=== PATIENT | male | born 1945 | race African-American/Black ===

== ENCOUNTER → 2017-07-25 09:33 | Outpatient (CLI) | payer MEDICARE, SELFPAY ==
[2017-07-25 13:22] LABS: Absolute Lymphocyte Count 1.24 X10^3/ul (0.83-4.51); Absolute Neutrophil Count 2.4 X10^3/uL (2.0-7.7); Basophil# 0.02 X10^3/uL; Basophil% 0.4 % (0-1); Eosinophil# 0.06 X10^3/uL; Eosinophils% 1.3 % (0-5); Hematocrit 46.9 % (40-54); Hemoglobin 15.1 g/dl (13.0-16.5); Lymphocyte # 1.24 X10^3/ul (4.0); Lymphocyte % 27.7 % (19-41); Mean Corp Hgb Conc 32.2 g/gl (32-36); Mean Corpuscular Hgb 31.5 pg (27.0-32.0); Mean Corpuscular Volume 97.9 fL (80-94); Mean Platelet Vol. 10.5 fl (6.2-12.0); Monocyte# 0.78 X10^3/uL; Monocyte% 17.4 % (0-10); Neutrophil # 2.37 X10^3/uL (2.7-7.7); Platelet Count 174 K/mm3 (150-450); RBC Distribution Width CV 14.3 % (11.6-14.6); RBC Distribution Width SD 50.8 fl (35.1-43.9); Red Blood Count 4.79 M/mm3 (4.6-6.2); White Blood Count 4.5 K/mm3 (4.4-11.0)
[2017-07-25 13:35] LABS: POSITIVE COUNT NO; POSITIVE DIFFERENTIAL NO; POSITIVE MORPHOLOGY NO
[2017-07-25 13:40] LABS: Vitamin D,25 Hydroxy 24.4 ng/mL (29.95-100.01)
[2017-07-25 13:47] LABS: AST(SGOT) 19 U/L (15-37); Alanine Aminotransfer ALT/SGPT 36 U/L (16-61); Albumin, Serum 3.8 g/dL (3.2-5.0); Alkaline Phosphatase 70 U/L (45-117); Anion Gap 6 (5-15); BUN 12 mg/dL (7-18); BUN/Creat Ratio 9.4 RATIO (10-20); Calcium,Total 8.9 mg/dL (8.5-10.1); Chloride 106 mmol/L (98-107); Creatinine, Serum 1.27 mg/dL (0.70-1.30); EST Glomerular Filtration Rate 59 mL/min (>60); Est Glom Filt Rate - Afr Amer 71 mL/min (>60); Globulin 3.8 g/dL (2.2-4.2); Glucose 75 mg/dL (74-106); Potassium 4.2 mmol/L (3.5-5.1); Protein, Total 7.6 g/dL (6.4-8.2); Sodium Level 141 mmol/L (136-145); Thyroid Stim Hormone (TSH) 0.79 uIU/mL (0.358-3.74)
== END ==
PROVIDERS: Family Provider Family Medicine Geriatric Medicine; PCP Family Medicine Geriatric Medicine; Visit Provider Family Medicine Geriatric Medicine
DX: E11.9 Type 2 diabetes mellitus without complications (principal); E55.9 Vitamin D deficiency, unspecified; I10 Essential (primary) hypertension
CPT/HCPCS: 36415; 80053; 82306; 84443; 85025

== ENCOUNTER → 2017-10-24 14:32 | Outpatient (CLI) | payer OTHER, SELFPAY ==
[2017-10-24 15:30] LABS: PSA,Total- Diagnostic 4.47 ng/mL (0.0-4.0)
== END ==
PROVIDERS: Family Provider Family Medicine Geriatric Medicine; PCP Family Medicine Geriatric Medicine; Visit Provider Urology
DX: C61 Malignant neoplasm of prostate (principal)
CPT/HCPCS: 36415; 84153

== ENCOUNTER → 2018-01-28 13:22 | Outpatient (CLI) | payer OTHER, SELFPAY ==
[2018-01-28 15:01] LABS: Absolute Lymphocyte Count 1.43 X10^3/ul (0.83-4.51); Absolute Neutrophil Count 1.8 X10^3/uL (2.0-7.7); Basophil# 0.02 X10^3/uL; Basophil% 0.5 % (0-1); Eosinophil# 0.07 X10^3/uL; Eosinophils% 1.7 % (0-5); Hematocrit 46.7 % (40-54); Lymphocyte # 1.43 X10^3/ul (4.0); Lymphocyte % 35.4 % (19-41); Mean Corp Hgb Conc 32.1 g/gl (32-36); Mean Corpuscular Hgb 31.6 pg (27.0-32.0); Mean Corpuscular Volume 98.5 fL (80-94); Mean Platelet Vol. 10.3 fl (6.2-12.0); Monocyte# 0.67 X10^3/uL; Monocyte% 16.6 % (0-10); Neutrophil # 1.84 X10^3/uL (2.7-7.7); Neutrophil % 45.6 % (47-70); Platelet Count 159 K/mm3 (150-450); RBC Distribution Width CV 14.6 % (11.6-14.6); RBC Distribution Width SD 52.2 fl (35.1-43.9); Red Blood Count 4.74 M/mm3 (4.6-6.2)
[2018-01-28 15:06] LABS: POSITIVE COUNT NO; POSITIVE DIFFERENTIAL NO; POSITIVE MORPHOLOGY NO
[2018-01-28 15:18] LABS: Vitamin D,25 Hydroxy 17.1 ng/mL (29.95-100.01)
[2018-01-28 15:22] LABS: AST(SGOT) 21 U/L (15-37); Alanine Aminotransfer ALT/SGPT 32 U/L (16-61); Albumin, Serum 3.7 g/dL (3.2-5.0); Alkaline Phosphatase 81 U/L (45-117); Anion Gap 8 (5-15); BUN 12 mg/dL (7-18); BUN/Creat Ratio 8.8 RATIO (10-20); Calcium,Total 8.8 mg/dL (8.5-10.1); Chloride 105 mmol/L (98-107); Creatinine, Serum 1.37 mg/dL (0.70-1.30); EST Glomerular Filtration Rate 54 mL/min (>60); Est Glom Filt Rate - Afr Amer 65 mL/min (>60); Globulin 3.8 g/dL (2.2-4.2); Glucose 87 mg/dL (74-106); Potassium 4.4 mmol/L (3.5-5.1); Protein, Total 7.5 g/dL (6.4-8.2); Sodium Level 141 mmol/L (136-145); Thyroid Stim Hormone (TSH) 1.02 uIU/mL (0.358-3.74)
== END ==
PROVIDERS: Family Provider Family Medicine Geriatric Medicine; PCP Family Medicine Geriatric Medicine; Visit Provider Family Medicine Geriatric Medicine
DX: E11.9 Type 2 diabetes mellitus without complications (principal); E23.6 Other disorders of pituitary gland; E55.9 Vitamin D deficiency, unspecified; I10 Essential (primary) hypertension
CPT/HCPCS: 36415; 80053; 82306; 84403; 84443; 85025

== ENCOUNTER → 2018-04-09 10:43 | Outpatient (CLI) | payer OTHER, SELFPAY ==
[2018-04-09 12:48] LABS: Absolute Lymphocyte Count 1.09 X10^3/ul (0.83-4.51); Absolute Neutrophil Count 1.6 X10^3/uL (2.0-7.7); Basophil# 0.01 X10^3/uL; Basophil% 0.3 % (0-1); Eosinophil# 0.06 X10^3/uL; Eosinophils% 1.8 % (0-5); Hemoglobin 15.3 g/dl (13.0-16.5); Lymphocyte # 1.09 X10^3/ul (4.0); Lymphocyte % 33.3 % (19-41); Mean Corp Hgb Conc 31.9 g/gl (32-36); Mean Corpuscular Hgb 31.2 pg (27.0-32.0); Mean Platelet Vol. 10.3 fl (6.2-12.0); Monocyte# 0.47 X10^3/uL; Monocyte% 14.4 % (0-10); Neutrophil # 1.64 X10^3/uL (2.7-7.7); Neutrophil % 50.2 % (47-70); Platelet Count 164 K/mm3 (150-450); RBC Distribution Width CV 13.7 % (11.6-14.6); RBC Distribution Width SD 48.4 fl (35.1-43.9); White Blood Count 3.3 K/mm3 (4.4-11.0)
[2018-04-09 12:54] LABS: POSITIVE COUNT NO; POSITIVE DIFFERENTIAL NO; POSITIVE MORPHOLOGY NO
[2018-04-09 13:02] LABS: Erythrocyte Sedimentation Rate 8 mm/hr (0-20)
[2018-04-09 13:28] LABS: Anion Gap 7 (5-15); BUN 15 mg/dL (7-18); BUN/Creat Ratio 10.9 RATIO (10-20); CPK Total, Creatine Kinase 281 U/L (39-308); CRP < 2.90 mg/L (0.0-3.0); Calcium,Total 9.1 mg/dL (8.5-10.1); Chloride 108 mmol/L (98-107); Creatinine, Serum 1.38 mg/dL (0.70-1.30); EST Glomerular Filtration Rate 53 mL/min (>60); Est Glom Filt Rate - Afr Amer 65 mL/min (>60); Glucose 89 mg/dL (74-106); Potassium 4.5 mmol/L (3.5-5.1); Sodium Level 141 mmol/L (136-145)
[2018-04-10 09:24] LABS: Myoglobin, Serum 195 ng/mL (28-72)
--- OUTSIDE RECORDS SUMMARY | 2018-05-22 02:24 | XMS RPT_ITS ---
:1945 Author Organization OHIP Support Name Relationship Address Phone R Unavailable Unavailable Unavailable PACHECO, ABAD Unavailable [address] + [address] [place] [address] LATASHA PACHECOUS Unavailable Unavailable + [place] [address] R Unavailable Unavailable Unavailable PACHECO, ABAD Unavailable [address] + [address] [place] [address] PACHECOLATASHAUS Unavailable Unavailable + [place] [address] R Unavailable Unavailable Unavailable PACHECO, ABAD Unavailable [address] + [address] [place] [address] PACHECOLATASHAUS Unavailable Unavailable + [place] [address] R Unavailable Unavailable Unavailable PACHECO, ABAD Unavailable [address] + [address] [place] [address] BETOLATASHAUS Unavailable Unavailable + [place] [address] R Unavailable Unavailable Unavailable PACHECO, ABAD Unavailable [address] + [address] [place] [address] PACHECOLATASHAUS Unavailable Unavailable + [place] [address] R Unavailable Unavailable Unavailable PACHECO, ABAD Unavailable [address] + [address] [place] [address] PACHECOLATASHAUS Unavailable . + [place] [address] R Unavailable Unavailable Unavailable PACHECO, ABAD Unavailable [address] + [address] [place] [address] BETOLATASHAUS Unavailable Unavailable + [place] [address] R Unavailable Unavailable Unavailable PACHECO, ABAD Unavailable [address] + [address] [place] [address] PACHECO, MARYSE Unavailable Unavailable + [place] [address] R Unavailable Unavailable Unavailable PACHECO, ABAD Unavailable [address] + [address] [place] [address] MARYSE PACHECO Unavailable Unavailable [phone] [place] [address] R Unavailable Unavailable Unavailable PACHECO, ABAD Unavailable [address] + [address] [place] [address] MARYSE PACHECO Unavailable . [phone] [place] [address] R Unavailable Unavailable Unavailable PACHECO, ABAD Unavailable [address] + [address] [place] [address] MARYSE PACHECO Unavailable . [phone] [place] [address] R Unavailable Unavailable Unavailable PACHECO, ABAD Unavailable [address] + [address] [place] [address] MARYSE PACHECO Unavailable . [phone] [place] [address] Care Team Providers Name Role Phone Yony, Aashish Chi Attending Unavailable Yony, Aashish Chi Referring Unavailable Yony, Aashish Chi Primary Care Unavailable Marion, [place] Attending Unavailable Marion, Munir Referring Unavailable Yony, Aashish Chi Primary Care Unavailable Yony, Aashish Chi Primary Care Unavailable Tamela Navarro Attending Unavailable Yony, Aashish Chi Attending Unavailable Yony, Aashish Chi Primary Care Unavailable VinnyRaymundoEsteban Attending Unavailable Vinny, Esteban Referring Unavailable Yony, Aashish Chi Primary Care Unavailable Yony, Aashish Chi Attending Unavailable Yony, Aashish Chi Primary Care Unavailable Yony, Aashish Chi Attending Unavailable Yony, Aashish Chi Primary Care Unavailable Marion, Munir Attending Unavailable Yony, Aashish Chi Referring Unavailable Vinny, Esteban Attending Unavailable Vinny, Esteban Referring Unavailable Yony, Aashish Chi Primary Care Unavailable [place], [place] Attending Unavailable Marion, Munir Referring Unavailable Yoyn, Aashish Chi Primary Care Unavailable [place], [place] Attending Unavailable Marion, [place] Referring Unavailable Yony, Aashish Chi Primary Care Unavailable [place], [place] Consulting Unavailable Mildred Diaz Attending Unavailable Yony, Aashish Chi Referring Unavailable Yony, Aashish Chi Primary Care Unavailable PROBLEMS PROBLEMS DATE TYPE CONDITION / CODE ATTENDING STATUS SOURCE 04/24/2018 Unknown M25.529 - Pain in Aashish Bhakta Chi Active [place] unspecified elbow / Community M25.529(ICD-10) Hospital Repository 04/22/2018 Unknown I45.10 - [place], [place] Active [place] Unspecified right [facility] / I45.10(ICD-10) Repository 04/17/2018 Unknown R07.9 - Chest pain, [place], [place] Active [place] unspecified / Community R07.9(ICD-10) Hospital Repository 09/05/2017 Unknown 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[place], 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 Community without Hospital complications / Repository E11.9(ICD-10) 09/05/2017 Unknown R50.9 - Fever, Ahmed, Rami Active [place] unspecified / Community R50.9(ICD-10) Hospital Repository 04/24/2017 Unknown M54.5 - Low back DiazMildred Active [place] pain / Community M54.5(ICD-10) Hospital Repository PROCEDURES PROCEDURES No Procedure Records FoundRESULTS RESULTS CBC W/DIFF, AUTOMATED Collected: 04/24/2018 Status: F Source: [place] 1:51 PM [facility] REPOSITORY TYPE CODE TESTS RESULT OUT OF RANGE REFERENCE UNITS LAB L100.1000 4.4-11.0 K/mm3 Normal WBC 5.6 LAB L100.1200 4.6-6.2 M/mm3 Normal RBC 5.01 LAB L100.1300 13.0-16.5 g/dl Normal HGB 15.7 LAB L100.1400 40-54 % Normal HCT 49.7 LAB L100.1500 80-94 fL High MCV 99.2 LAB L100.1600 27.0-32.0 pg Normal MCH 31.3 LAB L100.1700 32-36 g/gl Low MCHC 31.6 LAB L100.1810 11.6-14.6 % Normal RDW CV 14.3 LAB L100.1820 35.1-43.9 fl High RDW SD 51.8 LAB L100.1900 150-450 K/mm3 Normal PLT 157 LAB L100.2000 6.2-12.0 fl Normal MPV 10.5 LAB L100.2100 47-70 % Normal NEUT% 68.0 LAB L100.2200 19-41 % Low LY% 18.1 LAB L100.2300 0-10 % High MONO% 12.5 LAB L100.2400 0-5 % Normal EO% 1.2 LAB L100.2500 0-1 % Normal BASO% 0.2 LAB L100.2550 0.0-0.9 % Normal IM GRAN % 0.000 Result Comment: IG% - Immature Granulocytes (promyelocytes, myelocytes and metamyelocytes) > 1% indicates that a LEFT SHIFT is Present. LAB L100.2620 2.0-7.7 X10 3/uL Normal Absolute Neut 3.8 LAB L100.2720 0.83-4.51 X10 3/ul Normal Absolute Lymph 1.02 Performed By: #### L100.0100 #### [facility] [address] [place], [address] BASIC METABOLIC Collected: 04/24/2018 Status: F Source: [place] PROFILE ([facility]) 1:51 PM [facility] [place] TYPE CODE TESTS RESULT OUT OF RANGE REFERENCE UNITS LAB L501.0100 74-106 mg/dL Normal GLU 81 Result Comment: Please note revised GLUCOSE reference range effective 2017. LAB L501.1000 7-18 mg/dL Normal BUN 14 LAB L501.1100 0.70-1.30 mg/dL High CREAT,SERUM 1.31 Result Comment: The validity of the calculated GFR AND GFRAA in patients over 70 years has not been determined. Clinical correlation is essential. LAB L501.1110 >60 mL/min Low EST GFR 57 Result Comment: Non- GFR Calc LAB L501.1115 >60 mL/min Normal EST GFR - AA 69 Result Comment: GFR Calc LAB L501.1300 10-20 RATIO Normal BUN/CRE 10.7 LAB L501.2200 8.5-10.1 mg/dL CA Normal 8.9 LAB L501.5300 136-145 mmol/L NA Normal 139 LAB L501.5600 3.5-5.1 mmol/L K Normal 4.3 LAB L501.5900 98-107 mmol/L CL Normal 107 LAB L501.6100 21.0-32.0 mmol/L Normal CO2 26.0 LAB L501.6200 5-15 Normal GAP 6 Performed By: #### L500.2500 #### [facility] [address] [place], [address] ELBOW MIN 3 VIEWS Observed: 04/24/2018 Status: F Source: [place] 11:54 AM [facility] [place] Imaging Services [address] [place] [address] Elbow min 3 Views MR#: [id number] Acct: [id number] Name: BALJINDER PACHECO Rep #: [id number] : 1945 M 72 From: Tobias Paredes MD PCP: [place] FLETCHER,Aashish Crsepo Status: REG CLI Study: Elbow min 3 Views Date of Exam: 04/24/18 Exam# [id number] Ordering Dr: Aashish Bhakta MD STUDY: X-RAY - RIGHT ELBOW REASON FOR EXAM: Male, 72 years old. Pain. Fall. TECHNIQUE: 3 view(s) of the elbow. COMPARISON: None. FINDINGS: Normal visualized humerus, radius and ulna. Normal radiocapitellar and ulnotrochlear articulations. Prominent calcified spur at the insertion of the triceps tendon. There is dorsal soft tissue swelling. RAD/Elbow min 3 Views IMPRESSION: No acute fracture or dislocation. Electronically Signed: Tobias Paredes MD at 12:25 EST , Service support , CC: Aashish Bhakta MD Ditching Machine Operator: Signed ECHOCARDIOGRAM COMPLETE Observed: 04/22/2018 Status: F Source: [place] 12:17 PM [facility] [place] [facility] Cardiovascular Services [address] [place] [address] Echo Complete 04/22/18 0827 MR#: [id number] Acct: [id number] Name: BALJINDER PACHECO Rep #: [id number] : 1945 72 From: Munir Schultz MD Attending Dr: [place] FLETCHER,Munir Status: REG CLI Ordering Dr: Munir Schultz MD Date: 04/22/18 Location: [facility] Sex: M AA Admitted: Reason For Study: Arrhythmia Procedure This was a 2D Doppler, Color Flow transthoracic echocardiogram. Exam performed in department. Left Ventricle Normal LV size. Apical false tendon noted. Left ventricular systolic function is normal. The estimated ejection fraction is 60 %. Stage 1 diastolic dysfunction. No regional wall motion abnormalities noted. Right Ventricle Normal RV size. Normal systolic function. Atria Normal left atrium. Normal right atrium. Mitral Valve Normal mitral valve. Tricuspid Valve Normal tricuspid valve. Aortic Valve Normal aortic valve. Trisinus/trileaflet aortic valve. Pulmonic Valve Normal pulmonic valve. Great Vessels Normal aortic root. The pulmonary artery is normal size. Normal inferior vena cava. Pericardium/Pleural No pericardial effusion. MMode/2D Measurements AND Calculations LVIDd: 3.9 cm IVSd: 0.97 cm Ao root diam: 3.5 cm LVIDs: 2.6 cm LVPWd: 0.96 cm RVDd: 3.4 cm FS: 34.1 % LAV(MOD-bp): 40.1 ml EDV(MOD-sp4): 95.8 ml EDV(MOD-sp2): 80.0 ml LAV(MOD-bp) Indexed: 19.5 ml/m2 ESV(MOD-sp4): 33.9 ml EF(MOD-sp2): 58.7 % LAV(MOD-sp2): 40.1 ml EF(MOD-sp4): 64.6 % LAV(MOD-sp4): 34.6 ml SV(MOD-sp4): 61.9 ml SV(MOD-sp2): 47.0 ml LA A4 area: 15.7 cm2 LA dimension(2D): 3.2 cm RA A4 area: 14.6 cm2 Doppler Measurements AND Calculations MV E max deepak: 84.2 cm/sec Lat Peak E' Deepak: 9.1 cm/sec Med Peak E' Deepak: 6.3 cm/sec MV A max edepak: 91.4 cm/sec E/E' lat: 9.2 E/E' med: 13.3 MV E/A: 0.92 Ao V2 max: 137.7 cm/sec LV V1 max: 90.5 cm/sec PA V2 max: 103.7 cm/sec Ao max P.6 mmHg LV V1 max P.3 mmHg TR max deepak: 245.3 cm/sec TR max P.1 mmHg Interpretation Summary Normal LV size. Left ventricular systolic function is normal. The estimated ejection fraction is 60 %. Stage 1 diastolic dysfunction. Ordering Physician: Munir Schultz Referring Physician: Aashish Bhakta Chi Performed By: Iraida Madera RDCS 04/22/186 Date Munir Schultz MD CC: Munir Schultz MD; Aashish Bhakta MD Date Dictated: 04/22/18826 Date Transcribed: 04/22/181215 Ditching Machine Operator: Signed STRESS REPORT Observed: 04/22/2018 Status: F Source: [place] 8:32 AM [facility] Cardiovascular Services [address] [place] [address] MR#: [id number] Acct: [id number] Name: BAJLINDER PACHECO Rep #: [id number] : 1945 72 From: Munir Schultz MD Primary Care: Aashish Bhakta MD, Chi Status: REG CLI Ordering Dr: Sex: M AA Stress Test Report Exercise myocardial perfusion stress test. 72-year-old male with a history of chest pain. Stress protocol: Resting EKG demonstrates normal sinus rhythm with a rate of 66 bpm normal intervals are noted resting blood pressure is 138/72 mmHg. The patient exercised according to regular Vince protocol for total duration of 6 minutes completing stage II of the Vince protocol the maximum heart rate attained was 153 bpm which was 104% of maximum predicted heart rate the maximum workload was 7 metabolic equivalents. The patient maintained sinus rhythm throughout the recording. At rest there were no ST or T wave changes noted suggest ischemia peak exercise upsloping ST changes only were noted with normally the criteria for ischemia. No clinical angina was noted. The resting blood pressure 138/72 with a peak blood pressure 182/70 mmHg. Right bundle branch block pattern was noted. Myocardial perfusion protocol. 10.0 mCi of technetium 99m sestamibi was injected at rest. The patient exercised according to regular Vince protocol for 6 minutes at peak exercise 31.0 mCi of technetium 99m sestamibi was injected stress images were obtained stress and rest images were reconstructed and compared in the short axis vertical long and horizontal long axis. Gated images were also obtained per Perfusion SPECT analysis: Review of the stress images demonstrate normal uptake of tracer noted in the anterior wall and lateral wall. There is reduced perfusion noted in the inferior wall on the stress and resting images diaphragmatic attenuation or previous inferior infarct cannot be completely excluded. Gated SPECT analysis: The gated ejection fraction is noted to be 69%. Conclusion: Exercise myocardial perfusion stress test with no evidence of ischemia at a moderate workload. Previous inferior infarct or GI attenuation is noted. No clinical angina noted. 04/22/18831 <Electronically signed by Munir Schultz MD> Date Munir Schultz MD CC: Munir Schultz MD; Aashish Bhakta MD Date Dictated: 04/22/18827 Date Transcribed: 04/22/18827 Ditching Machine Operator: [place] Signed PSA,TOTAL- DIAGNOSTIC Collected: 04/17/2018 Status: F Source: [place] 10:22 AM [facility] [place] TYPE CODE TESTS RESULT OUT OF REFERENCE UNITS RANGE LAB L501.9940 0.0-4.0 ng/mL PSA, High DIAGNOSTIC 4.09 Result Comment: This test was performed using the TPSA assay method for the [employer] chemistry system. Values obtained with different assay methods cannot be used interchangably. When changing PSA assays in the course of monitoring a patient, additional sequential testing should be carried out to confirm baseline values. Performed By: #### L501.9940 #### [facility] [address] [place], [address] CARDIOLOGY VISIT Observed: 04/17/2018 Status: F Source: [place] REPORT 10:00 AM [facility] [address] [place] [address] OFFICE VISIT Date of Service: 04/17/18 MR#: [id number] Acct: [id number] Name: BALJINDER PACHECO Rep #: [id number] : 1945 Provider: Munir Schultz MD Age/Sex: 72/M Location: [facility] Status: Signed HPI HPI Chief Complaint: Initial visit Details: BALJINDER PACHECO is a 72 M who presents to the office today for an initial visit. He is a gentleman with no previous cardiac history who saw you as his primary physician. He had complained of occasional chest discomfort which was sharp and did not last long time. He had been complaining of bilateral arm pain which had been bothering him for over a year. He has been on atorvastatin for hyperlipidemia which has since been discontinued. An EKG was performed with demonstrated sinus rhythm with a right bundle branch block and a rate of 66 bpm no acute changes were noted. He has had no dizziness or diaphoresis no near syncope or syncope. His physical exam today here demonstrates clear lung weinstein regular rate and rhythm and no pedal edema. Intake Vital Signs04/17/18 Height 5 ft 10 in 04/17/18 Weight: 193 lb 04/17/18 Body Mass Index (BMI) 27.6 04/17/18 Blood Pressure 120/70 04/17/18 Respiratory Rate 16 04/17/18 Pulse Rate 66 Intake Visit Reasons: PCP ref'd for abn EKG Allergies No Known Allergies Allergy (Verified 04/17/18 08:16) Medications Aspirin [Aspirin, Baby] 81 mg PO DAILY@0800 12/10/16 [History Confirmed 04/17/18] Tamsulosin HCl [Flomax] 0.4 mg PO DAILY 12/10/16 [History Confirmed 04/17/18] allergy shot IM QWEEK 04/17/18 [History Confirmed 04/17/18] baclofen 10 mg tablet 10 mg PO QHS tab 04/17/18 [History Confirmed 04/17/18] cholecalciferol (vitamin D3) 50,000 unit capsule 50,000 unit PO QWEEK 04/17/18 [History Confirmed 04/17/18] diclofenac sodium 50 mg tablet,delayed release 50 mg PO BID 04/17/18 [History Confirmed 04/17/18] [facility] Medical History Right bundle branch block (Acute) Hyperlipidemia (Chronic) BPH (benign prostatic hyperplasia) (Chronic) Psoriasis (Chronic) Surgical History History of appendectomy (Resolved) Hx of cholecystectomy (Resolved) History of appendectomy (Inactive) History of gallbladder disease (Inactive) Family History Brother Cancer Social History Smoking Status: Former smoker quit date: 05/14/73 pack-years: 10 ROS Const Const: Positive for weakness and other (BUE pain for the past 9 months); negative for fatigue, difficulty sleeping, frequent falls, excessive sweating or headache(s) Eyes Eyes: Negative for loss of peripheral vision, transient loss of vision, blurry vision, tunnel vision or double vision ENT ENT: Negative for headache(s), dizziness, Nosebleed/epistaxis or balance problems Cardio Chest Pain: No Palpitations: No Edema: None Muscle aches with walking: None Resp Respiratory: Negative for SOB with activity, SOB at rest, SOB orthopnea\SOB lying down, paroxysmal nocturnal dyspnea or Cough GI GI: Negative nausea, heartburn, black,tarry stools or vomiting : Negative for hematuria Musc Musc: Negative for balance problems, muscle aches/ myalgia, muscle weakness or joint pain Skin Skin: Negative non-healing lesions, unusual bruising or rash Neuro Neuro: Positive for weakness and orthostatic symptoms (occasional); negative for frequent falls, headache(s), blurry vision, double vision, dizziness, lightheadedness, near syncope, syncope or lack of coordination Guy Hematologic/Lymphatic: Negative for easy bruising or easy bleeding Endo Endo: Negative for fatigue, excessive sweating or increased thirst/drinking Psych Psych: Negative for anxiety or depression Allergy Allergy/Immunology: Negative for hives, Negative for rash Cardiology Exam Const Appearance: cooperative, healthy appearing, well developed, well groomed and no acute distress Nutritional Appearance: well nourished and average body habitus Orientation: alert, awake and oriented x3 Head Head: normal to inspection, normocephalic and atraumatic Ears: hearing grossly normal bilaterally and external ears normal Nose: external nose normal, nasal mucous membranes and turbinates normal, nares normal, septum normal, no nasal discharge Face and Sinus: face symmetric Mouth: oral mucosae normal, tongue normal, oropharynx normal and moist mucous membranes Teeth and gingiva: dentition normal Throat: posterior oropharynx normal, tonsils normal and uvula midline Eyes General: appearance normal, both eyes and all related structures Eyelids: eyelids normal Conjunctivae: conjunctivae normal Pupils: PERRL, normal by confrontation and accommodation normal EOM: EOM intact bilaterally Neck Neck: normal visual inspection, trachea midline and no JVD JVD: +5 Carotids: normal carotid upstroke and bounding pulses Chest Chest inspection: normal inspection of the chest, symmetric chest movement and normal respiratory effort Auscultation: Bilateral: Clear to Auscultation Cardio Palpation: normal PMI Rate: regular rate Rhythm: regular rhythm Heart sounds: S1 normal, S2 normal and normal, physiologic split S2; negative rub, gallop or murmur GI GI: normal to inspection, soft, no hepatosplenomegaly and bowel sounds present Neuro General: alert, awake, oriented x3, no focal sensory deficit, gait normal and moves all extremities Skin Skin: no rashes or lesions noted Extremities Pulses: Normal: Right Femoral Pulse, Left Femoral Pulse, Right Dorsalis Pedis Pulse, Left Dorsalis Pedis Pulse, Right Posterior Tibial Pulse, Left Posterior Tibial Pulse, Right Radial Pulse, Left Radial Pulse Lower Extremity Edema: None: Bilateral Musculoskel Musculoskeletal: No joint tenderness Psych Psychological: normal affect Assessment AND Plan 1. Right bundle branch block I45.10 Plan He does have a right bundle branch block the duration and etiology is not clear to me at this time. My recommendation is for us to obtain an echocardiogram to assess his left ventricular function. Orders Orders: 2. Chest pain R07.9 Plan He has had occasional chest pain as well as arm pain. Due to his age it may be prudent to further evaluate this with a stress test to make sure there is no evidence of ischemia noted. Depending on the findings further recommendations will then be made. 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) Coding Level of Care Code Off vis,new,level 4 Diagnoses Right bundle branch block I45.10 Chest pain R07.9 Coding Level of Care Code Off vis,new,level 4 Diagnoses Right bundle branch block I45.10 Chest pain R07.9 04/17/18 1000 <Electronically signed by Munir Schultz MD> Date Munir Schultz MD Cosigner Signature: Date (if applicable) CC: Aashish Bhakta MD CBC W/DIFF, AUTOMATED Collected: 04/09/2018 Status: F Source: [place] 10:44 AM [facility] [place] TYPE CODE TESTS RESULT OUT OF RANGE REFERENCE UNITS LAB L100.1000 4.4-11.0 K/mm3 Low WBC 3.3 LAB L100.1200 4.6-6.2 M/mm3 Normal RBC 4.90 LAB L100.1300 13.0-16.5 g/dl Normal HGB 15.3 LAB L100.1400 40-54 % Normal HCT 48.0 LAB L100.1500 80-94 fL High MCV 98.0 LAB L100.1600 27.0-32.0 pg Normal MCH 31.2 LAB L100.1700 32-36 g/gl Low MCHC 31.9 LAB L100.1810 11.6-14.6 % Normal RDW CV 13.7 LAB L100.1820 35.1-43.9 fl High RDW SD 48.4 LAB L100.1900 150-450 K/mm3 Normal PLT 164 LAB L100.2000 6.2-12.0 fl Normal MPV 10.3 LAB L100.2100 47-70 % Normal NEUT% 50.2 LAB L100.2200 19-41 % Normal LY% 33.3 LAB L100.2300 0-10 % High MONO% 14.4 LAB L100.2400 0-5 % Normal EO% 1.8 LAB L100.2500 0-1 % Normal BASO% 0.3 LAB L100.2550 0.0-0.9 % Normal IM GRAN % 0.000 Result Comment: IG% - Immature Granulocytes (promyelocytes, myelocytes and metamyelocytes) > 1% indicates that a LEFT SHIFT is Present. LAB L100.2620 2.0-7.7 X10 3/uL Low Absolute Neut 1.6 LAB L100.2720 0.83-4.51 X10 3/ul Normal Absolute Lymph 1.09 Performed By: #### L100.0100, L101.9900 #### [facility] [address] [place], [address] ERYTHROCYTE SED RATE Collected: 04/09/2018 Status: F Source: [place] 10:44 AM [facility] [place] TYPE CODE TESTS RESULT OUT OF RANGE REFERENCE UNITS LAB L102.0000 0-20 mm/hr Normal SED RATE 8 Performed By: #### L100.0100, L101.9900 #### [facility] [address] [place], [address] BASIC METABOLIC Collected: 04/09/2018 Status: F Source: [place] PROFILE (BMP) 10:44 AM [facility] Order Comment: 'TROP' Serial specimen #1, #2, #3, or #4: 1 TYPE CODE TESTS RESULT OUT OF RANGE REFERENCE UNITS LAB L501.0100 74-106 mg/dL Normal GLU 89 Result Comment: Please note revised GLUCOSE reference range effective 2017. LAB L501.1000 7-18 mg/dL Normal BUN 15 LAB L501.1100 0.70-1.30 mg/dL High CREAT,SERUM 1.38 Result Comment: The validity of the calculated GFR AND GFRAA in patients over 70 years has not been determined. Clinical correlation is essential. LAB L501.1110 >60 mL/min Low EST GFR 53 Result Comment: Non- GFR Calc LAB L501.1115 >60 mL/min Normal EST GFR - AA 65 Result Comment: GFR Calc LAB L501.1300 10-20 RATIO Normal BUN/CRE 10.9 LAB L501.2200 8.5-10.1 mg/dL CA Normal 9.1 LAB L501.5300 136-145 mmol/L NA Normal 141 LAB L501.5600 3.5-5.1 mmol/L K Normal 4.5 LAB L501.5900 98-107 mmol/L High CL 108 LAB L501.6100 21.0-32.0 mmol/L Normal CO2 26.0 LAB L501.6200 5-15 Normal GAP 7 Performed By: #### L500.2500, L501.3620, L501.4010, L501.6710 #### [facility] [address] [place], [address] CPK TOTAL, CREATINE Collected: 04/09/2018 Status: F Source: [place] 10:44 AM [facility] Order Comment: 'TROP' Serial specimen #1, #2, #3, or #4: 1 TYPE CODE TESTS RESULT OUT OF RANGE REFERENCE UNITS LAB L501.3620 39-308 U/L Normal CPK TOTAL 281 Performed By: #### L500.2500, L501.3620, L501.4010, L501.6710 #### [facility] [address] [place], [address] TROPONIN-I Collected: 04/09/2018 Status: F Source: [place] 10:44 AM [facility] Order Comment: 'TROP' Serial specimen #1, #2, #3, or #4: 1 TYPE CODE TESTS RESULT OUT OF RANGE REFERENCE UNITS LAB L501.4010 <0.045 ng/mL Normal < 0.015 TROPONIN-I Result Comment: TROPONIN-I EXPECTED VALUES <0.045 Negative 0.045 - 0.590 Consistent with Cardiac Damage > OR = 0.600 Critical Value Not every elevated troponin is indicative of AR. These values should be used with clinical judgement in examining the patient's clinical picture for diagnosis. To establish a diagnosis of AR versus myocardial injury, there must be a demonstrated rise and/or fall in the troponin values, in addition to ischemic symptoms, EKG changes, new regional wall motion abnormality, and/or angiographical evidence. PLEASE NOTE: REFERENCE RANGES EDITED 17 Performed By: #### L500.2500, L501.3620, L501.4010, L501.6710 #### [facility] [address] [place], [address] CRP Collected: 04/09/2018 Status: F Source: [place] 10:44 AM [facility] Order Comment: 'TROP' Serial specimen #1, #2, #3, or #4: 1 TYPE CODE TESTS RESULT OUT OF RANGE REFERENCE UNITS LAB L501.6710 0.0-3.0 mg/L Normal < 2.90 C-REACTIVE PROT Result Comment: C-Reactive Protein (CRP) provides useful information for the diagnosis, therapy and monitoring of inflammatory processes and associated diseases. For the evaluation of Relative Risk for Cardiovascular Disease, a High Sensitivity CRP (HSCRP) should be ordered. Performed By: #### L500.2500, L501.3620, L501.4010, L501.6710 #### [facility] [address] [place], [place], [address] MYOGLOBIN, SERUM Collected: 04/09/2018 Status: F Source: [place] 10:44 AM [facility] TYPE CODE TESTS RESULT OUT OF RANGE REFERENCE UNITS LAB L3600.5100 28-72 ng/mL High 195 Myoglobin, Ser Result Comment: Performed at: [address] [id number] [employer] Consultant: Angel Pang PhD, Phone: [phone] Performed By: #### L3600.5100 #### [facility] (refer to report for specific site) refer to report for address and phone number CBC W/DIFF, AUTOMATED Collected: 01/28/2018 Status: F Source: [place] 1:24 PM [facility] TYPE CODE TESTS RESULT OUT OF RANGE REFERENCE UNITS LAB L100.1000 4.4-11.0 K/mm3 Low WBC 4.0 LAB L100.1200 4.6-6.2 M/mm3 Normal RBC 4.74 LAB L100.1300 13.0-16.5 g/dl Normal HGB 15.0 LAB L100.1400 40-54 % Normal HCT 46.7 LAB L100.1500 80-94 fL High MCV 98.5 LAB L100.1600 27.0-32.0 pg Normal MCH 31.6 LAB L100.1700 32-36 g/gl Normal MCHC 32.1 LAB L100.1810 11.6-14.6 % Normal RDW CV 14.6 LAB L100.1820 35.1-43.9 fl High RDW SD 52.2 LAB L100.1900 150-450 K/mm3 Normal PLT 159 LAB L100.2000 6.2-12.0 fl Normal MPV 10.3 LAB L100.2100 47-70 % Low NEUT% 45.6 LAB L100.2200 19-41 % Normal LY% 35.4 LAB L100.2300 0-10 % High MONO% 16.6 LAB L100.2400 0-5 % Normal EO% 1.7 LAB L100.2500 0-1 % Normal BASO% 0.5 LAB L100.2550 0.0-0.9 % Normal IM GRAN % 0.200 Result Comment: IG% - Immature Granulocytes (promyelocytes, myelocytes and metamyelocytes) > 1% indicates that a LEFT SHIFT is Present. LAB L100.2620 2.0-7.7 X10 3/uL Low Absolute Neut 1.8 LAB L100.2720 0.83-4.51 X10 3/ul Normal Absolute Lymph 1.43 Performed By: #### L100.0100 #### [facility] [address] [facility] [place], [place], [address] VITAMIN D,25 HYDROXY Collected: 01/28/2018 Status: F Source: [place] 1:24 PM [facility] TYPE CODE TESTS RESULT OUT OF REFERENCE UNITS RANGE LAB L506.1000 29.95-100.01 ng/mL Low Vitamin D 17.1 25-OH Result Comment: Vitamin D 25(OH) Status Range Deficiency <20 ng/mL (50nmol/L) Insuffciency 20 - 30 ng/mL (50 - 75 nmol/L) Sufficiency 30 - 100 ng/mL (75 - 250 nmol/L) Toxicity >100 ng/mL (>250 nmol/L) Performed By: #### L506.1000, L509.3000 #### [facility] [address] [place], [place], [address] TESTOSTERONE, SERUM TOTAL Collected: 01/28/2018 Status: F Source: [place] 1:24 PM [facility] TYPE CODE TESTS RESULT OUT OF REFERENCE UNITS RANGE LAB L509.3000 ng/dL Testosterone Normal 400.30 Result Comment: NORMAL REFERENCE RANGES MALE AGE <50 123.06 - 813.86 ng/dL MALE AGE >50 89.98 - 780.10 ng/dL FEMALE PREMENOPAUSE AGE 21 - 60 9.01 - 47.94 ng/dL FEMALE POSTMENOPAUSE AGE 45 - 89 <7.00 - 45.62 ng/dL REFERENCE RANGE AND METHODOLOGY CHANGED 05/02/2017 Performed By: #### L506.1000, L509.3000 #### [facility] [place], [address] COMPREHENSIVE METABOLIC Collected: 01/28/2018 Status: F [facility] PM [facility] TYPE CODE TESTS RESULT OUT OF RANGE REFERENCE UNITS LAB L501.0100 74-106 mg/dL Normal GLU 87 Result Comment: Please note revised GLUCOSE reference range effective 2017. LAB L501.1000 7-18 mg/dL Normal BUN 12 LAB L501.1100 0.70-1.30 mg/dL High CREAT,SERUM 1.37 Result Comment: The validity of the calculated GFR AND GFRAA in patients over 70 years has not been determined. Clinical correlation is essential. LAB L501.1110 >60 mL/min Low EST GFR 54 Result Comment: Non- GFR Calc LAB L501.1115 >60 mL/min Normal EST GFR - AA 65 Result Comment: GFR Calc LAB L501.1300 10-20 RATIO Low BUN/CRE 8.8 LAB L501.1500 6.4-8.2 g/dL Normal T PROT 7.5 LAB L501.1800 3.2-5.0 g/dL Normal ALB 3.7 LAB L501.1950 2.2-4.2 g/dL Normal GLOB 3.8 LAB L501.2000 0.9-2.4 RATIO Normal A/G 1.0 LAB L501.2200 8.5-10.1 mg/dL Normal CA 8.8 LAB L501.4100 15-37 U/L Normal AST 21 LAB L501.4305 45-117 U/L Normal ALK P 81 LAB L501.4405 16-61 U/L Normal ALT 32 LAB L501.4600 0.20-1.00 mg/dL Normal T BILI 0.70 LAB L501.5300 136-145 mmol/L Normal NA 141 LAB L501.5600 3.5-5.1 mmol/L Normal K 4.4 LAB L501.5900 98-107 mmol/L Normal CL 105 LAB L501.6100 21.0-32.0 mmol/L Normal CO2 28.0 LAB L501.6200 5-15 Normal GAP 8 Performed By: #### L500.4050, L501.9520 #### [facility] [address] [place], [address] THYROID STIM HORMONE Collected: 01/28/2018 Status: F Source: [place] ([place]) 1:24 PM [facility] TYPE CODE TESTS RESULT OUT OF RANGE REFERENCE UNITS LAB L501.9520 0.358-3.74 uIU/mL Normal TSH 1.02 Performed By: #### L500.4050, L501.9520 #### [facility] [address] [facility] [place], [address] PSA,TOTAL- DIAGNOSTIC Collected: 10/24/2017 Status: F Source: [place] 2:35 PM [facility] TYPE CODE TESTS RESULT OUT OF REFERENCE UNITS RANGE LAB L501.9940 0.0-4.0 ng/mL PSA, High DIAGNOSTIC 4.47 Result Comment: This test was performed using the TPSA assay method for the [employer] chemistry system. Values obtained with different assay methods cannot be used interchangably. When changing PSA assays in the course of monitoring a patient, additional sequential testing should be carried out to confirm baseline values. Performed By: #### L501.9940 #### [facility] [address] [facility] [place], [address] CBC W/DIFF, AUTOMATED Collected: 07/25/2017 Status: F Source: [place] 9:34 AM [facility] TYPE CODE TESTS RESULT OUT OF RANGE REFERENCE UNITS LAB L100.1000 4.4-11.0 K/mm3 Normal WBC 4.5 LAB L100.1200 4.6-6.2 M/mm3 Normal RBC 4.79 LAB L100.1300 13.0-16.5 g/dl Normal HGB 15.1 LAB L100.1400 40-54 % Normal HCT 46.9 LAB L100.1500 80-94 fL High MCV 97.9 LAB L100.1600 27.0-32.0 pg Normal MCH 31.5 LAB L100.1700 32-36 g/gl Normal MCHC 32.2 LAB L100.1810 11.6-14.6 % Normal RDW CV 14.3 LAB L100.1820 35.1-43.9 fl High RDW SD 50.8 LAB L100.1900 150-450 K/mm3 Normal PLT 174 LAB L100.2000 6.2-12.0 fl Normal MPV 10.5 LAB L100.2100 47-70 % Normal NEUT% 53.0 LAB L100.2200 19-41 % Normal LY% 27.7 LAB L100.2300 0-10 % High MONO% 17.4 LAB L100.2400 0-5 % Normal EO% 1.3 LAB L100.2500 0-1 % Normal BASO% 0.4 LAB L100.2550 0.0-0.9 % Normal IM GRAN % 0.200 Result Comment: IG% - Immature Granulocytes (promyelocytes, myelocytes and metamyelocytes) > 1% indicates that a LEFT SHIFT is Present. LAB L100.2620 2.0-7.7 X10 3/uL Normal Absolute Neut 2.4 LAB L100.2720 0.83-4.51 X10 3/ul Normal Absolute Lymph 1.24 Performed By: #### L100.0100 #### [facility] [address], [place], [address] VITAMIN D,25 HYDROXY Collected: 07/25/2017 Status: F Source: [place] 9:34 AM [facility] TYPE CODE TESTS RESULT OUT OF REFERENCE UNITS RANGE LAB L506.1000 29.95-100.01 ng/mL Low Vitamin D 24.4 25-OH Result Comment: Vitamin D 25(OH) Status Range Deficiency <20 ng/mL (50nmol/L) Insuffciency 20 - 30 ng/mL (50 - 75 nmol/L) Sufficiency 30 - 100 ng/mL (75 - 250 nmol/L) Toxicity >100 ng/mL (>250 nmol/L) Performed By: #### L506.1000 #### [facility] [address] [place], [place], [address] COMPREHENSIVE METABOLIC Collected: 07/25/2017 Status: F Source: [place] 9:34 AM [facility] TYPE CODE TESTS RESULT OUT OF RANGE REFERENCE UNITS LAB L501.0100 74-106 mg/dL Normal GLU 75 Result Comment: Please note revised GLUCOSE reference range effective 2017. LAB L501.1000 7-18 mg/dL Normal BUN 12 LAB L501.1100 0.70-1.30 mg/dL Normal CREAT,SERUM 1.27 Result Comment: The validity of the calculated GFR AND GFRAA in patients over 70 years has not been determined. Clinical correlation is essential. LAB L501.1110 >60 mL/min Low EST GFR 59 Result Comment: Non- GFR Calc LAB L501.1115 >60 mL/min Normal EST GFR - AA 71 Result Comment: GFR Calc LAB L501.1300 10-20 RATIO Low BUN/CRE 9.4 LAB L501.1500 6.4-8.2 g/dL Normal T PROT 7.6 LAB L501.1800 3.2-5.0 g/dL Normal ALB 3.8 LAB L501.1950 2.2-4.2 g/dL Normal GLOB 3.8 LAB L501.2000 0.9-2.4 RATIO Normal A/G 1.0 LAB L501.2200 8.5-10.1 mg/dL Normal CA 8.9 LAB L501.4100 15-37 U/L Normal AST 19 LAB L501.4305 45-117 U/L Normal ALK P 70 LAB L501.4405 16-61 U/L Normal ALT 36 Result Comment: Please note revised ALT reference range effective 2017. LAB L501.4600 0.20-1.00 mg/dL Normal T BILI 0.90 LAB L501.5300 136-145 mmol/L Normal NA 141 LAB L501.5600 3.5-5.1 mmol/L Normal K 4.2 LAB L501.5900 98-107 mmol/L Normal CL 106 LAB L501.6100 21.0-32.0 mmol/L Normal CO2 29.0 LAB L501.6200 5-15 Normal GAP 6 Performed By: #### L500.4050, L501.9520 #### [facility] [address] [place], [place], [address] THYROID STIM HORMONE Collected: 07/25/2017 Status: F Source: [place] ([place]) 9:34 AM [facility] TYPE CODE TESTS RESULT OUT OF RANGE REFERENCE UNITS LAB L501.9520 0.358-3.74 uIU/mL Normal TSH 0.79 Performed By: #### L500.4050, L501.9520 #### [facility] [address] [place], [address] ORTHOPEDIC VISIT Observed: 05/27/2017 Status: F Source: [place] 11:11 PM [facility] [place] [facility] [address] [place] [address] OFFICE VISIT Date of Service: 04/24/17 MR#: [id number] Acct: [id number] Name: BALJINDER PACHECO Rep #: [id number] : 1945 Provider: Mildred Diaz MD Age/Sex: 71/M Location: [facility] [place] Status: Signed Intake Intake Visit Reasons: Lumbar pain Is patient in pain?: Yes Allergies No Known Allergies Allergy (Verified 05/06/17 23:29) Medications Atorvastatin Calcium [Lipitor] 40 mg PO QHS 02/05/15 [History Confirmed 05/07/17] Aspirin [Aspirin, Baby] 81 mg PO DAILY@0800 12/10/16 [History Confirmed 05/07/17] Tamsulosin HCl [Flomax] 0.4 mg PO DAILY 12/10/16 [History Confirmed 05/07/17] Smz/Tmp Ds [Bactrim Ds] 1 tab PO BID 7 Days #14 tab 05/07/17 [Rx] PFSH Surgical History History of appendectomy (Inactive) History of gallbladder disease (Inactive) Family History Brother Cancer Social History Smoking Status: Former smoker HPI Low back pain: Chief Complaint: low back pain Details: BALJINDER PACHECO is a 71 year old ambidexterous M here today for low back pain 70% and right lateral calf pain 30%. He states that he has had low back pain since December with no known injury. Since then, he has had 80-90% improvement of his pain. He is doing well currently without pain. Patient sees Dr Montemayor and had epidural injections into his L4-L5 and L5-S1 in 12/2016. He had physical therapy, that helped. He denies bowel or bladder issues, gait instability or difficulty with hand dexterity. He denies constitutional symptoms. He has BPH. He is retired. ROS Const Reports system reviewed and no additional complaints, except as docu Eyes Reports system reviewed and no additional complaints, except as docu ENT Reports system reviewed and no additional complaints, except as docu Card Reports system reviewed and no additional complaints, except as docu Resp Reports system reviewed and no additional complaints, except as docu GI Reports system reviewed and no additional complaints, except as docu Reports system reviewed and no additional complaints, except as docu Musc Reports back pain Skin/Breast Reports system reviewed and no additional complaints, except as docu Neuro Yes system reviewed and no additional complaints, except as docu Psych Reports system reviewed and no additional complaints, except as docu Endo Reports system reviewed and no additional complaints, except as docu Ortho Exam Spine Neuro: Yes Vigil's Left General: alert, oriented x3 Gait: normal gait, other (able to heel and toe walk) Sensory Exam: no sensory deficits noted DTR's: Rt Triceps: 2+, Lt Triceps: 2+, Rt Biceps: 2+, Lt Biceps: 2+, Rt Brachioradialis: 2+, Lt Brachioradialis: 2+, Rt Patellar: 2+, Lt Patellar: 2+, Rt Ankle: 2+, Lt Ankle: 2+ Plantar Reflexes: Downgoing: bilateral Coordination: Romberg test normal, tandem gait normal SPINE TESTING CERVICAL THORACIC LUMBAR SLR: Negative Iliac Compression: Negative Musculoskeletal General: Yes normal gait and normal posture Cervical Spine: cervical ROM normal Thoracic/Lumbar Spine: thoracic and lumbar spine normal to inspection, thoraco-lumbar ROM normal, straight leg raise negative bilaterally, other (2+ bilateral dp and pt pulses) Strength 0=absent - 5=normal Deltoid R (C5): 5, Deltoid L (C5): 5, R Bicep (C5-6): 5, L Bicep (C5-6): 5, R Wrist Extensor (C6): 5, L Wrist Extensor (C6): 5, R Tricep (C7): 5, L Tricep (C7): 5, R Finger Flexors (C8): 5, L Finger Flexors (C8): 5, R First Dorsal Interossei (C8): 5, L First Dorsal Interossei (C8): 5, R Hip Flexor (L1-3): 5, L Hip Flexor (L1-3): 5, R Quadriceps (L2-4): 5, L Quadriceps (L2-4): 5, R Anterior Tibialis (L4-5): 5, L Anterior Tibialis (L4- 5): 5, R Hamstrings (L5-S1): 5, L Hamstrings (L5-S1): 5, GS (S1): 5, L GS (S1): 5, R Peroneals (S1): 5, L Peroneals (S1): 5 Assessment AND Plan 1. Low back pain M54.5 Plan Imaging: XR lumbar spine - diffuse spondylosis MRI lumbar spine 12/21/2016 - diffuse spondylosis with L3-4 moderate stenosis. L4-5 spinal stenosis and L5-S1 bilateral lateral recess stenosis I/R/P; 1. back pain 2. right leg pain Mr. Pahceco presents with back and right leg pain that is significantly resolved. The natural history and course of the symptomatology of lumbar spinal stenosis was discussed in detail with the patient. I answered all questions regarding the mode of onset, pathophysiology, symptoms, imaging findings, treatment options (both nonoperative and operative) regarding his diagnosis. Given his symptoms have resolved, recommend continued activities as tolerated. If his symptoms return, he will contact us for reevaluation. Plan of care discussed. All questions answered. The patient verbalized understanding of the disease process and agreed to the treatment plan formulated for this visit. Orders Orders: 05/27/17 2311 <Electronically signed by Mildred Diaz MD> Date Mildred Diaz MD Cosigner Signature: Date (if applicable) CC: EMERGENCY DEPARTMENT Observed: 05/08/2017 Status: F Source: [place] SUMMARY 7:28 AM [facility] Medical Records Department [address] [place] [address] Emergency Department Summary 05/06/17 2347 MR#: [id number] Acct: [id number] Name: BALJINDER PACHECO Rep #: [id number] : 1945 71 From: Tamela Navarro PCP: Aashish Bhakta MD, Chi Status: DEP ER - ER Visit Summary Date of Service: 05/06/17 Chief Complaint: [] Fever History of Present Illness: The patient is a 71 M [] complaining of fever beginning approximately 5 hours ago. Patient reports body aches and slight back discomfort. Denies vomiting. History is limited by mild dementia. Several family members are at the bedside. Patient presents with URI symptoms and the peak a flu season. Physical Examination: [] Temperature is 102.6. Cardiovascular exam is regular rate and rhythm, lungs are clear to auscultation, abdomen soft nontender. Test Results: [] CBC, BMP within normal limits. Urinalysis positive for bacteria with 3+ bacteria, greater than 500 leukocytes. Chest x-ray negative. Rapid flu was negative. Emergency Department Course and Treatment: [] Upon arrival patient reported diffuse myalgias and fever. Denied chest pain or shortness of breath. Denied nausea and vomiting. Denied abdominal pain. Denied dysuria. Findings are consistent with the urinary cause for the fever in light of the patient's history of BPH. Patient was given ceftriaxone intravenously as well as intravenous Toradol and Phenergan. On serial exam he had improvement of symptoms and vital signs. Patient and patient's family was amenable to discharge and close follow-up. Patient was provided a prescription for antibiotics as an outpatient. I felt because of the large family support the patient was a good candidate to be treated as an outpatient. Family was especially sensitive to the fact that today is Sebastian. Treatment Plan: [] Intravenous antibiotics and discharge with antibiotic prescription for UTI. Disposition: [] Discharge, stable. Impression: [] UTI Fever This note was generated with OLX dictation software. It may contain incorrect words, spelling, and punctuation that were not noted in review of the chart prior to signing ED Disposition - Plan for ED Patient: Chief Complaint: Fever Referrals: Aashish Bhakta Chi, MD [Primary Care Provider] - What to do if you have Problems For any increased pain, shortness of breath, bleeding, nausea or vomiting, chest pain, or any unexpected problems, contact your Primary Care Provider. Call [facility] ([phone]) or report to the closest Emergency Room. Call 911 if necessary. 05/08/17727 <Electronically signed by Tamela Navarro DO> Date Tamela Navarro DO Cosigner Signature (If Indicated): Date CC: Aashish Bhakta MD DISCHARGE INSTRUCTION Observed: 2017 Status: F Source: [place] 3:23 AM [facility] Medical Records Department [address] [place] [address] Discharge Instruction 05/07/17321 MR#: [id number] Acct: [id number] Name: BALJINDER PACHECO Rep #: [id number] : 1945 72 From: Tamela Navarro DO PCP: Aashish Bhakta MD, Chi Status: REG ER ED Disposition - Plan for ED Patient: Disposition: Home or Assisted Living Chief Complaint: Fever Instructions: ED UTI Cystitis Male Prescriptions: Smz/Tmp Ds [Bactrim Ds] 1 tab PO BID 7 Days #14 tab Referrals: Aashish Bhakta Chi, MD [Primary Care Provider] - What to do if you have Problems For any increased pain, shortness of breath, bleeding, nausea or vomiting, chest pain, or any unexpected problems, contact your Primary Care Provider. Call [facility] ([phone]) or report to the closest Emergency Room. Call 911 if necessary. 05/07/17322 <Electronically signed by Tamela Navarro DO> Date Tamela Navarro DO Cosigner Signature (If Indicated): Date CC: Aashish Bhakta MD URINALYSIS, COMPLETE Collected: 2017 Status: F Source: [place] 2:02 AM [facility] Order Comment: Order Date: 05/07/17 How was Urine Obtained? CLEAN CATCH TYPE CODE TESTS RESULT OUT OF RANGE REFERENCE UNITS LAB L400.3000 Yellow COLOR Normal Yellow LAB L400.3050 Clear Normal CLARITY Cloudy LAB L400.3200 Normal mg/dl Normal GLUCOSE, UR Normal LAB L400.3300 Negative mg/dL Normal BILIRUBIN URINE Negative LAB L400.3400 Negative mg/dl High 5 KETONE UR LAB L400.3465 1.002-1.030 Normal SP.GR. DIPSTX 1.010 LAB L400.3550 5.0 - 8.0 pH UR Normal 6.5 LAB L400.3600 Negative mg/dl High PROT 30 DIPSTX LAB L400.3700 Normal mg/dl High 8 UROBILI LAB L400.3750 Negative Normal NITRITE UR Negative LAB L400.3780 Negative /ul High OCCULT BLOOD-UR 250 LAB L400.3800 Negative /ul High LEUK ESTERASE 500 LAB L400.4050 0-5 /hpf WBC Normal 25-50 SEEN LAB L400.4100 0-5 /hpf > Normal RBC-UA 100 SEEN LAB L400.4150 0-5 /hpf SQUAM 0 Normal EPI SEEN LAB L400.4300 None Seen /hpf 3+ Normal BACTERIA LAB L400.4350 <or=2+ /hpf 0 Normal MUCUS, URINE SEEN Performed By: #### L400.0001 #### [facility] [address] [place], [address] Observed: 2017 Status: F Source: [place] INFLUENZA A+B (RAPID 12:30 AM [facility] REPOSITORY Order Date: 05/07/17 FLU A/B Rapid Negative test results should be confirmed by culture. Order Rapid Viral Culture for Influenzae A+B ([id number]) if clinically indicated. Influenza Ag, Direct Presumptive NEGATIVE for Influenza A/B Antigen (See Note) Performed By: #### M101.0101 #### [facility] [address] [place], [address] CHEST 1 VIEW Observed: 05/06/2017 Status: F Source: [place] (PORTABLE) 11:46 PM [facility] REPOSITORY [facility] Imaging Services [address] [place] [address] Chest 1 View (Portable) MR#: [id number] Acct: [id number] Name: BALJINDER PACHECO Rep #: [id number] : 1945 M 71 From: Phil Benitez MD PCP: Aashish Bhakta MD, Chi Status: REG ER Study: Chest 1 View (Portable) Date of Exam: 05/06/17 Exam# [id number] Ordering Dr: Tamela Navarro DO STUDY: X-RAY CHEST REASON FOR EXAM: Male, 72 years old. Fever. TECHNIQUE: Single AP portable view of the chest. COMPARISON: 02/03/2015. FINDINGS: There are mild hypoventilatory changes. No focal infiltrate is seen. There is no demonstrated pleural abnormality. Normal size heart. Normal mediastinum and cheryle. Normal visualized pulmonary arteries. There is atherosclerotic tortuosity of the aortic arch and descending thoracic aorta. The thoracic spine is not well-visualized. Normal visualized ribs, clavicles, and shoulders. There is no demonstrated abnormality of the visualized soft tissue structures of the upper abdomen. RAD/Chest 1 View (Portable) IMPRESSION: No active pulmonary disease. Electronically Signed: Phil Benitez MD at 0:33 EST Tel , Service support , CC: Tamela Navarro DO; Aashish Bhakta MD Ditching Machine Operator: Signed CBC W/DIFF, AUTOMATED Collected: 05/06/2017 Status: F Source: [place] 12:15 AM [facility] TYPE CODE TESTS RESULT OUT OF RANGE REFERENCE UNITS LAB L100.1000 4.4-11.0 K/mm3 Normal WBC 7.0 LAB L100.1200 4.6-6.2 M/mm3 Normal RBC 4.60 LAB L100.1300 13.0-16.5 g/dl Normal HGB 14.7 LAB L100.1400 40-54 % Normal HCT 44.7 LAB L100.1500 80-94 fL High MCV 97.2 LAB L100.1600 27.0-32.0 pg Normal MCH 32.0 LAB L100.1700 32-36 g/gl Normal MCHC 32.9 LAB L100.1810 11.6-14.6 % Normal RDW CV 13.3 LAB L100.1820 35.1-43.9 fl High RDW SD 46.5 LAB L100.1900 150-450 K/mm3 Low PLT 146 LAB L100.2000 6.2-12.0 fl Normal MPV 10.2 LAB L100.2100 47-70 % High NEUT% 93.8 LAB L100.2200 19-41 % Low LY% 4.0 LAB L100.2300 0-10 % Normal MONO% 1.7 LAB L100.2400 0-5 % Normal EO% 0.1 LAB L100.2500 0-1 % Normal BASO% 0.1 LAB L100.2550 0.0-0.9 % Normal IM GRAN % 0.300 Result Comment: IG% - Immature Granulocytes (promyelocytes, myelocytes and metamyelocytes) > 1% indicates that a LEFT SHIFT is Present. LAB L100.2620 2.0-7.7 X10 3/uL Normal Absolute Neut 6.6 LAB L100.2720 0.83-4.51 X10 3/ul Low Absolute Lymph 0.28 LAB L100.4500 Normal SMEAR COMMENT SCANNED Result Comment: LYMPHOPENIA NOTED Performed By: #### L100.0100 #### [facility] [address] [place], [place], [address] BASIC METABOLIC Collected: 05/06/2017 Status: F Source: [place] PROFILE ([facility]) 12:15 AM [facility] TYPE CODE TESTS RESULT OUT OF RANGE REFERENCE UNITS LAB L501.0100 70-110 mg/dL Normal GLU 106 LAB L501.1000 7-18 mg/dL Normal BUN 18 LAB L501.1100 0.70-1.30 mg/dL High 1.49 CREAT,SERUM Result Comment: The validity of the calculated GFR AND GFRAA in patients over 70 years has not been determined. Clinical correlation is essential. LAB L501.1110 >60 mL/min Low EST GFR 49 Result Comment: Non- GFR Calc LAB L501.1115 >60 mL/min Low EST GFR - AA 59 Result Comment: GFR Calc LAB L501.1255 ml/min Normal Estimated CRCL 44.91 LAB L501.1300 10-20 RATIO Normal BUN/CRE 12.1 LAB L501.2200 8.5-10 mg/dL Normal .1 CA 8.5 LAB L501.5300 136-14 mmol/L Normal 5 NA 136 LAB L501.5600 3.5-5. mmol/L Normal 1 K 4.1 LAB L501.5900 98-107 mmol/L Normal CL 104 LAB L501.6100 21.0-3 mmol/L Normal 2.0 CO2 24.0 LAB L501.6200 5-15 Normal GAP 8 Performed By: #### L500.2500 #### [facility] [address] [place], [place], [address] ALLERGIES ALLERGIES DATE TYPE / CODE NAME / CODE REACTION SEVERITY SOURCE 04/17/2018 Drug No Known Unknown [facility] Allergy/4160 Allergies/F00 Hospital 78913(SNOMED 2386349(RXNOR Repository CT) M) ENCOUNTERS ENCOUNTERS ADMIT/DISCHARGE ACCOUNT ADMITTING ENCOUNTER LOCATION SOURCE NUMBER CLASS 04/30/2018 [id number] Ambulatory Tony Tony 4 [facility] ing:PSN Repository 04/24/2018 [id number] Ambulatory Tony Tony 7 [facility] ing:RAD Repository 04/22/2018 [id number] Ambulatory BMSBuilding:[place] 0 [place].CF.[facility] Repository 04/22/2018 [id number] Ambulatory [place] Tony 6 [facility] ing:CVS Repository 04/17/2018 [id number] Ambulatory Tony Tony 3 [facility] ing:LAB Repository 04/17/2018/ [id number] Ambulatory BMSBuilding:[place] 8 4 MS.[facility] Repository 04/09/2018 [id number] Ambulatory [place] Tony 5 [facility] ing:POLAB3 Repository 01/28/2018 [id number] Ambulatory [place] 3 [facility] ing:POLAB3 Repository 10/24/2017 [id number] Ambulatory [place] Tony 1 [facility] ing:LAB Repository 07/25/2017 [id number] Ambulatory [place] 4 [facility] ing:POLAB3 Repository 05/06/2017/ [id number] Emergency [place] 7 2 [facility] ing:ED Repository 04/24/2017/ [id number] Ambulatory BMSBuilding:[place] 7 1 MS.[facility] Repository PAYERS PAYERS ENCOUNTER GUARANTOR PAYER SUBSCRIBER SOURCE 04/30/2018 BALJINDER Chambers Primary BALJINDER Jimenez [id number] Insurance:UNITED [facility] SMITHDOB: Community [address] [id number] Number: Repository [id number]: 330 [id number] [phone] () Date:3212-15-08AE[address] [address]RJ: 04/30/2018 Secondary NOT GIVENUNK Tony Insurance:SELF PAY [facility] Number: Effective Repository Date:2018-04-30 04/24/2018 BALJINDER Chambers Primary BALJINDER Jimenez [id number] [facility] [address] [id number] Number: Repository [address]Iwn: 330 [id number] [phone] () Date:6932-66-59TQ [address] [address]MD: 04/24/2018 Secondary NOT GIVENUNK Tony Insurance:SELF PAY [facility] Number: Effective Repository Date:2018-04-24 04/22/2018 BALJINDER Chambers Primary BALJINDER Jimenez [id number] Insurance:UNITED [facility] SMITHDOB: Community [address] [id number] [place] Number: Repository [address]Mrf: 330 [id number] [phone] (HP) Date:[id number] [address]IP: 04/22/2018 Secondary NOT GIVENUNK [place] Insurance:SELF PAY [facility] Number: Effective Repository Date:2018-04-22 04/22/2018 BALJINDER Chambers Primary BALJINDER Jimenez [id number] Insurance:UNITED HLTH SMITHDOB: Community [address] [id number] [place] Number: Repository [address]Ggz: 330 [id number] [phone] () Date:1894-90-69UM[address] [address]FA: 04/22/2018 Secondary NOT GIVENUNK [place] Insurance:SELF PAY [facility] Number: Effective Repository Date:2018-04-17 04/17/2018 BALJINDER Chambers Primary BALJINDER Jimenez [id number] Insurance:UNITED HLTH SMITHDOB: Community [address] [id number] [id number] [place] Number: Repository [address]Bum: 330 [id number] [phone] (HP) Date:6027-31-79AH [address], [place] [address]NA: 04/17/2018 Secondary NOT GIVENUNK Tony Insurance:SELF PAY [facility] Number: Effective Repository Date:2018-04-17 04/17/2018 BALJINDER Chambers Primary BALJINDER Jimenez [id number] Insurance:UNITED HLTH SMITHDOB: Community [address] [id number] [id number] [place] Number: Repository [id number]: 330 [id number] [phone] (HP) Date:1446-54-20EE [facility] [id number], [place] [address]EL: 04/17/2018 Secondary NOT GIVENUNK Tony Insurance:SELF PAY [facility] Number: Effective Repository Date:2018-04-17 04/09/2018 BALJINDER Chambers Primary BALJINDER [id number] Insurance:UNITED HLTH SMITHDOB: Community [address] [id number] [id number] [place] Number: Repository [address]Wcz: 330 [id number] [phone] (HP) Date:5745-25-36EK [facility] [address]95[address], [place] [address]KJ: 04/09/2018 Secondary NOT GIVENUNK Tony Insurance:SELF PAY [facility] Number: Effective Repository Date:2018-04-09 01/28/2018 BALJINDER Chambers Primary BALJINDER [id number] Insurance:UNITED [facility] SMITHDOB: Community [address] [id number] [id number] [place] Number: Repository [address]Xdl: 330 [id number] [phone] (HP) Date:3296-80-83KP [facility] [address], [place] [address]CG: 01/28/2018 Secondary NOT GIVENUNK [place] Insurance:SELF PAY [facility] Number: Effective Repository Date:2018-01-28 10/24/2017 BALJINDER Chambers Primary BALJINDER [id number] Insurance:[facility] SMITHDOB: Community [address] [id number] [place] Number: Repository [address]Jvj: 330 [id number] [phone] (HP) Date:4769-27-41VK [facility] [id number], [place] [address]DI: 10/24/2017 Secondary NOT GIVENUNK [place] Insurance:SELF PAY [facility] Number: Effective Repository Date:2017-10-24 07/25/2017 BALJINDER Chambers Primary Insurance:[facility] BALJINDER [id number] [facility] [employer] SMITHDOB: Community [address] Number: [id number] [id number] Repository [address]Ufo: ([phone]) Date:9305-81-30PJ [phone] () [address] [address]OC: 07/25/2017 Secondary NOT GIVENUNK Tony Insurance:SELF PAY [facility] Number: Effective Repository Date:2017-07-25 05/06/2017 BALJINDER W Primary BALJINDER [id number] Insurance:[employer] SMITHDOB: Community [address] Number: [id number] [id number] Repository [address]Xqt: [phone]) Date:2182-44-28BF [phone] () [id number] [place] [address]CN: 05/06/2017 Secondary NOT GIVENUNK [place] Insurance:SELF PAY [facility] Number: Effective Repository Date:2017-05-06 04/24/2017 BALJINDER W Primary BALJINDER [id number] Insurance:[employer] SMITHDOB: Community [address] Number: [id number] [id number] Repository [address]Sca: ([phone]) Date:9442-04-93XL [phone] () [id number] [address]ND: 04/24/2017 Secondary NOT GIVENUNK [place] Insurance:SELF PAY [facility] Number: Effective Repository Date:2017-04-14
== END ==
PROVIDERS: Family Provider Family Medicine Geriatric Medicine; PCP Family Medicine Geriatric Medicine; Visit Provider Family Medicine Geriatric Medicine
DX: M10.9 Gout, unspecified (principal); R07.9 Chest pain, unspecified
CPT/HCPCS: 36415; 80048; 82550; 83874; 84484; 85025; 85652; 86140

== ENCOUNTER → 2018-04-17 10:18 | Outpatient (CLI) | payer OTHER, SELFPAY ==
[2018-04-17 08:16] VITALS: BMI 27.6
[2018-04-17 12:06] LABS: PSA,Total- Diagnostic 4.09 ng/mL (0.0-4.0)
== END ==
PROVIDERS: Family Provider Family Medicine Geriatric Medicine; PCP Family Medicine Geriatric Medicine; Referring Provider Urology; Visit Provider Urology
DX: C61 Malignant neoplasm of prostate (principal); R97.20 Elevated prostate specific antigen [PSA]
CPT/HCPCS: 36415; 84153

== ENCOUNTER → 2018-04-22 06:44 | Outpatient (CLI) | payer OTHER, SELFPAY ==
[2018-04-17 08:16] VITALS: BMI 27.6
--- NOTE | 2018-04-22 06:46 | ECHOD_ITS ---
Reason For Study: Arrhythmia Procedure This was a 2D Doppler, Color Flow transthoracic echocardiogram. Exam performed in department. Left Ventricle Normal LV size. Apical false tendon noted. Left ventricular systolic function is normal. The estimated ejection fraction is 60 %. Stage 1 diastolic dysfunction. No regional wall motion abnormalities noted. Right Ventricle Normal RV size. Normal systolic function. Atria Normal left atrium. Normal right atrium. Mitral Valve Normal mitral valve. Tricuspid Valve Normal tricuspid valve. Aortic Valve Normal aortic valve. Trisinus/trileaflet aortic valve. Pulmonic Valve Normal pulmonic valve. Great Vessels Normal aortic root. The pulmonary artery is normal size. Normal inferior vena cava. Pericardium/Pleural No pericardial effusion. MMode/2D Measurements & Calculations LVIDd: 3.9 cm IVSd: 0.97 cm Ao root diam: 3.5 cm LVIDs: 2.6 cm LVPWd: 0.96 cm RVDd: 3.4 cm FS: 34.1 % LAV(MOD-bp): 40.1 ml EDV(MOD-sp4): 95.8 ml EDV(MOD-sp2): 80.0 ml LAV(MOD-bp) Indexed: 19.5 ml/m2 ESV(MOD-sp4): 33.9 ml EF(MOD-sp2): 58.7 % LAV(MOD-sp2): 40.1 ml EF(MOD-sp4): 64.6 % LAV(MOD-sp4): 34.6 ml SV(MOD-sp4): 61.9 ml SV(MOD-sp2): 47.0 ml LA A4 area: 15.7 cm2 LA dimension(2D): 3.2 cm RA A4 area: 14.6 cm2 Doppler Measurements & Calculations MV E max deepak: 84.2 cm/sec Lat Peak E' Deepak: 9.1 cm/sec Med Peak E' Deepak: 6.3 cm/sec MV A max deepak: 91.4 cm/sec E/E' lat: 9.2 E/E' med: 13.3 MV E/A: 0.92 Ao V2 max: 137.7 cm/sec LV V1 max: 90.5 cm/sec PA V2 max: 103.7 cm/sec Ao max P.6 mmHg LV V1 max P.3 mmHg TR max deepak: 245.3 cm/sec TR max P.1 mmHg Interpretation Summary Normal LV size. Left ventricular systolic function is normal. The estimated ejection fraction is 60 %. Stage 1 diastolic dysfunction. Ordering Physician: Munir Schultz Referring Physician: Aashish Bhakta Chi Performed By: Iraida Madera RDCS
--- NOTE | 2018-04-22 08:28 | STRESSREP ---
Stress Test Report Exercise myocardial perfusion stress test. 72-year-old male with a history of chest pain. Stress protocol: Resting EKG demonstrates normal sinus rhythm with a rate of 66 bpm normal intervals are noted resting blood pressure is 138/72 mmHg. The patient exercised according to regular Vince protocol for total duration of 6 minutes completing stage II of the Vince protocol the maximum heart rate attained was 153 bpm which was 104% of maximum predicted heart rate the maximum workload was 7 metabolic equivalents. The patient maintained sinus rhythm throughout the recording. At rest there were no ST or T wave changes noted suggest ischemia peak exercise upsloping ST changes only were noted with normally the criteria for ischemia. No clinical angina was noted. The resting blood pressure 138/72 with a peak blood pressure 182/70 mmHg. Right bundle branch block pattern was noted. Myocardial perfusion protocol. 10.0 mCi of technetium 99m sestamibi was injected at rest. The patient exercised according to regular Vince protocol for 6 minutes at peak exercise 31.0 mCi of technetium 99m sestamibi was injected stress images were obtained stress and rest images were reconstructed and compared in the short axis vertical long and horizontal long axis. Gated images were also obtained per Perfusion SPECT analysis: Review of the stress images demonstrate normal uptake of tracer noted in the anterior wall and lateral wall. There is reduced perfusion noted in the inferior wall on the stress and resting images diaphragmatic attenuation or previous inferior infarct cannot be completely excluded. Gated SPECT analysis: The gated ejection fraction is noted to be 69%. Conclusion: Exercise myocardial perfusion stress test with no evidence of ischemia at a moderate workload. Previous inferior infarct or GI attenuation is noted. No clinical angina noted.
== END ==
LOC: CVS 06:45
PROVIDERS: Family Provider Family Medicine Geriatric Medicine; PCP Family Medicine Geriatric Medicine; Referring Provider Internal Medicine Cardiovascular Disease; Visit Provider Internal Medicine Cardiovascular Disease
DX: I45.10 Unspecified right bundle-branch block (principal)
CPT/HCPCS: 78452; 93017; 93306; A9500; A4216

== ENCOUNTER → 2018-04-24 11:50 | Outpatient (CLI) | payer OTHER, SELFPAY ==
[2018-04-17 08:16] VITALS: BMI 27.6
--- NOTE | 2018-04-24 12:15 | RAD_ITS ---
STUDY: X-RAY - RIGHT ELBOW REASON FOR EXAM: Male, 72 years old. Pain. Fall. TECHNIQUE: 3 view(s) of the elbow. COMPARISON: None. FINDINGS: Normal visualized humerus, radius and ulna. Normal radiocapitellar and ulnotrochlear articulations. Prominent calcified spur at the insertion of the triceps tendon. There is dorsal soft tissue swelling. RAD/Elbow min 3 Views IMPRESSION: No acute fracture or dislocation. Electronically Signed: Tobias Paredes MD at 12:25 EST , Service support ,
[2018-04-24 15:51] LABS: Absolute Lymphocyte Count 1.02 X10^3/ul (0.83-4.51); Absolute Neutrophil Count 3.8 X10^3/uL (2.0-7.7); Basophil# 0.01 X10^3/uL; Basophil% 0.2 % (0-1); Eosinophil# 0.07 X10^3/uL; Eosinophils% 1.2 % (0-5); Hematocrit 49.7 % (40-54); Hemoglobin 15.7 g/dl (13.0-16.5); Lymphocyte # 1.02 X10^3/ul (4.0); Lymphocyte % 18.1 % (19-41); Mean Corp Hgb Conc 31.6 g/gl (32-36); Mean Corpuscular Hgb 31.3 pg (27.0-32.0); Mean Corpuscular Volume 99.2 fL (80-94); Mean Platelet Vol. 10.5 fl (6.2-12.0); Monocyte% 12.5 % (0-10); Neutrophil # 3.82 X10^3/uL (2.7-7.7); Platelet Count 157 K/mm3 (150-450); RBC Distribution Width CV 14.3 % (11.6-14.6); RBC Distribution Width SD 51.8 fl (35.1-43.9); Red Blood Count 5.01 M/mm3 (4.6-6.2); White Blood Count 5.6 K/mm3 (4.4-11.0)
[2018-04-24 16:12] LABS: POSITIVE COUNT NO; POSITIVE DIFFERENTIAL NO; POSITIVE MORPHOLOGY NO
[2018-04-24 16:25] LABS: Anion Gap 6 (5-15); BUN 14 mg/dL (7-18); BUN/Creat Ratio 10.7 RATIO (10-20); Calcium,Total 8.9 mg/dL (8.5-10.1); Chloride 107 mmol/L (98-107); Creatinine, Serum 1.31 mg/dL (0.70-1.30); EST Glomerular Filtration Rate 57 mL/min (>60); Est Glom Filt Rate - Afr Amer 69 mL/min (>60); Glucose 81 mg/dL (74-106); Potassium 4.3 mmol/L (3.5-5.1); Sodium Level 139 mmol/L (136-145)
--- OUTSIDE RECORDS SUMMARY | 2018-06-10 15:19 | XMS RPT_ITS ---
:1945 Author Organization OHIP Support Name Relationship Address Phone Lele Pacheco Unavailable Unavailable + R Unavailable Unavailable Unavailable PACHECO, ABAD Unavailable [address] + [address] [place] [address] PACHECOLATASHAUS Unavailable Unavailable + [place] [address] R Unavailable Unavailable Unavailable PACHECO, ABAD Unavailable [address] + [address] [place] [address] PACHECOLATASHAUS Unavailable . + [place] [address] R Unavailable Unavailable Unavailable PACHECO, ABAD Unavailable [address] + [address] [place] [address] PACHECOLATASHAUS Unavailable Unavailable + [place] [address] R Unavailable Unavailable Unavailable PACHECO, ABAD Unavailable [address] + [address] [place] [address] LATASHA PACHECOUS Unavailable Unavailable + [place] [address] R Unavailable Unavailable Unavailable PACHECO, ABAD Unavailable [address] + [address] [place] [address] PACHECOLATASHAUS Unavailable Unavailable + [place] [address] R Unavailable Unavailable Unavailable PACHECO, ABAD Unavailable [address] + [address] [place] [address] PACHECOLATASHAUS Unavailable Unavailable + [place] [address] R Unavailable Unavailable Unavailable PACHECO, ABAD Unavailable [address] + [address] [place] [address] PACHECOLATASHAUS Unavailable Unavailable + [place] [address] R Unavailable Unavailable Unavailable PACHECO, ABAD Unavailable [address] + [address] [place] [address] LATASHA PACHECOUS Unavailable Unavailable + [place] [address] R Unavailable Unavailable Unavailable PACHECO, ABAD Unavailable [address] + [address] [place] [address] LATASHA PACHECOUS Unavailable Unavailable + [place] [address] R Unavailable Unavailable Unavailable PACHECO, ABAD Unavailable [address] + [address] [place] [address] PACHECOLATASHAUS Unavailable Unavailable + [place] [address] R Unavailable Unavailable Unavailable PACHECO, ABAD Unavailable [address] + [address] [place] [address] LATASHA PACHECOUS Unavailable . + [place] [address] R Unavailable Unavailable Unavailable PACHECO, ABAD Unavailable [address] + [address] [place] [address] LATASHA PACHECOUS Unavailable Unavailable + [place] [address] R Unavailable Unavailable Unavailable PACHECO, ABAD Unavailable [address] + [address] [place] [address] LATASHA PACHECOUS Unavailable Unavailable + [place] [address] R Unavailable Unavailable Unavailable PACHECO, ABAD Unavailable [address] + [address] [place] [address] LATASHA PACHECOUS Unavailable Unavailable [phone] [place] [address] R Unavailable Unavailable Unavailable PACHECO, ABAD Unavailable [address] + [address] [place] [address] LATASHA PACHECOUS Unavailable . [phone] [place] [address] Care Team Providers Name Role Phone Salina Linder Attending Unavailable PROVIDER, UNKNOWN Referring Unavailable PHILOMENA, ANTONIA-CHI Primary Care Unavailable Philomena, Antonia Chi Attending Unavailable Philomena, Antonia Chi Referring Unavailable Philomena, Antonia Chi Primary Care Unavailable [place], [place] Attending Unavailable Marion, [place] Referring Unavailable Philomena, Antonia Chi Primary Care Unavailable Philomena, Antonia Chi Primary Care Unavailable Karthikeyan Whelan Attending Unavailable Philomena, Antonia Chi Primary Care Unavailable Boles, Zachery Attending Unavailable Jemima Kelsey Attending Unavailable Philomena, Antonia Chi Referring Unavailable Philomena, Antonia Chi Primary Care Unavailable Devon Weiner Attending Unavailable Philomena, Antonia Chi Attending Unavailable Philomena, Antonia Chi Primary Care Unavailable Vinny, Esteban Attending Unavailable Vinny, Esteban Referring Unavailable Philomena, Antonia Chi Primary Care Unavailable Philomena, Antonia Chi Attending Unavailable Philomena, Antonia Chi Primary Care Unavailable Philomena, Antonia Chi Attending Unavailable Philomena, Antonia Chi Primary Care Unavailable Marion, [place] Attending Unavailable Philomena, Antonia Chi Referring Unavailable Vinny, Raymundo Osborn Attending Unavailable Vinny, Esteban Referring Unavailable Philomena, Antonia Chi Primary Care Unavailable Marion, [place] Attending Unavailable Marion, [place] Referring Unavailable Philomena, Antonia Chi Primary Care Unavailable Marion, Munir Attending Unavailable Marion, [place] Referring Unavailable Marion, [place] Attending Unavailable Marion, [place] Referring Unavailable Philomena, Antonia Chi Primary Care Unavailable Marion, [place] Consulting Unavailable PROBLEMS PROBLEMS DATE TYPE CONDITION / CODE ATTENDING STATUS SOURCE 05/22/2018 Admitting Pain in right arm / Salina Linder Active [email or web address] Diagnosis M79.601(ICD-10) System Repository 05/22/2018 Admitting Effusion, right LinderSalina [facility] elbow / System M25.421(ICD-10) Repository 05/22/2018 Admitting Fall on same level, LinderSalina [facility] unspecified, System initial encounter / Repository W18.30XA(ICD-10) 05/22/2018 Admitting Urinary tract [facility] infection, site not System specified / Repository N39.0(ICD-10) 05/22/2018 Admitting Bacteriuria / Kailash [email or web address] Diagnosis R82.71(ICD-10) System Repository 05/22/2018 Admitting Personal history of Salina Linder [facility] nicotine dependence System / Z87.891(ICD-10) Repository 05/27/2018 Unknown R68.83 - Chills Devon Weiner Active [place] (without fever) / Community R68.83(ICD-10) Hospital Repository 05/09/2018 Unknown M70.21 - Olecranon Boles, Zachery Active [facility] bursitis, right Community elbow / Hospital M70.21(ICD-10) Repository 04/24/2018 Unknown M25.529 - Pain in Philomena, Antonia Chi Active [place] unspecified elbow / Community M25.529(ICD-10) Hospital Repository 04/22/2018 Unknown I45.10 - Marion, Munir Active [facility] Unspecified right Community bundle-branch block Hospital / I45.10(ICD-10) Repository 04/17/2018 Unknown R07.9 - Chest pain, Marion, [place] Active [facility] unspecified / Community R07.9(ICD-10) Hospital Repository 09/05/2017 Unknown 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Philomena, Antonia Chi Active [facility] diabetes mellitus Community without Hospital complications / Repository E11.9(ICD-10) PROCEDURES PROCEDURES No Procedure Records FoundRESULTS RESULTS 12 LEAD ELECTROCARDIOGRAM Observed: 05/27/2018 Status: F Source: [place] 10:02 AM [facility] REPOSITORY [facility] Cardiovascular Services [address] [place] [id number] 12 Lead EKG 05/22/18 0536 MR#: [id number] Acct: [id number] Name: BALJINDER PACHECO Rep #: [id number] : 1945 73 From: Munir Schultz MD Attending Dr: Status: DEP ER Ordering Dr: Devon Weiner MD Date: 05/22/18 Location: ED Sex: M AA Admitted: Test Reason : NAUSEA/VOMITING Blood Pressure : / mmHG Vent. Rate : 123 BPM Atrial Rate : 123 BPM P-R Int : 132 ms QRS Dur : 120 ms QT Int : 336 ms P-R-T Axes : 054 -14 036 degrees QTc Int : 481 ms Sinus tachycardia Right bundle branch block Septal infarct , age undetermined Abnormal ECG Confirmed by MUNIR SCHULTZ MD ([id number]), material expeditor BISHOP REES ([id number]) on 05/27/2018 10:02:17 AM Referred By: SUSAN Confirmed By:MUNIR SCHULTZ MD 05/27/18 1002 Date Munir Schultz MD CC: Devon Weiner MD; Antonai Bhakta MD Signed Observed: 05/22/2018 Status: F Source: [facility] INFLUENZA/RSV BY PCR 6:40 PM SYSTEM REPOSITORY Order Comment: Specimen Source Comment:Nasal Flu A PCR --> Status: F NEGATIVE Flu B PCR --> Status: F NEGATIVE RSV PCR --> Status: F NEGATIVE Method: FDA-Approved PCR Assay by Cepheid Method: FDA-Approved PCR Assay by Cepheid Performed By: #### INFPC #### [place] Self Representation Document Preparation [facility] [place] [address] C-REACTIVE PROTEIN Collected: 05/22/2018 Status: F Source: [facility] 6:40 PM SYSTEM REPOSITORY TYPE CODE TESTS RESULT OUT OF REFERENCE UNITS RANGE LAB 2CRP 0.0-6.0 mg/L High C-Reactive 76.5 Protein Result Comment: . Performed By: #### CRP2, BMP3, HSCRP #### [place] Self Representation Document Preparation [facility] [place] [address] BASIC METABOLIC PANEL Collected: 05/22/2018 Status: F Source: [facility] 6:40 PM SYSTEM REPOSITORY TYPE CODE TESTS RESULT OUT OF RANGE REFERENCE UNITS LAB NA3 135-145 mmol/L Sodium Normal 139 LAB K3 3.5-5.1 mmol/L Normal Potassium 4.9 LAB CL3 98-107 mmol/L High Chloride 112 LAB CO23 22-30 mmol/L Carbon Normal Dioxide 23 LAB ANIN3 NA Anion Gap 4 LAB GLUC3 70-100 mg/dL Glucose Normal 82 LAB BUN3 7-20 mg/dL Urea Normal Nitrogen 14 LAB CRET3 0.52-1.25 mg/dL High Creatinine 1.28 LAB GF3BR >60 mL/min eGFR > 60.0 LAB GF3WR >60 mL/min eGFR OTHER 54.8 Result Comment: Source- MDRD equation with creatinine calibration to IDMS(NKDEP) eGFR not recommended for drug dose adjustment LAB CA3 8.4-10.4 mg/dL Low Calcium 8.2 Performed By: #### CRP2, BMP3, HSCRP #### [place] Self Representation Document Preparation [facility] [place] [address] CRP, HIGH SENSITIVITY Collected: 05/22/2018 Status: F Source: [facility] 6:40 PM SYSTEM REPOSITORY TYPE CODE TESTS RESULT OUT OF REFERENCE UNITS RANGE LAB CRPHX 0.00-3.00 mg/L CRP, High High Sensitive > 15.00 Performed By: #### CRP2, BMP3, HSCRP #### [facility] [address] [place] [phone] HEMOGRAM W/ AUTODIFF Collected: 05/22/2018 Status: F Source: [facility] 5:16 PM SYSTEM REPOSITORY TYPE CODE TESTS RESULT OUT OF REFERENCE UNITS RANGE LAB IWBC 3.6-10.7 10*3/uL WBC High 11.1 LAB RBC 4.40-5.90 10*6/uL Low RBC 4.16 LAB HGB 13.0-18.0 g/dL Hemoglobin Normal 13.1 LAB HCT 40.0-52.0 % Low Hematocrit 39.6 LAB MCV 80.0-98.0 fL MCV Normal 95.4 LAB MCH 26.0-34.0 pg MCH Normal 31.5 LAB MCHC 32.0-36.0 % MCHC Normal 33.0 LAB RDW 11.5-14.5 % RDW Normal 14.5 LAB PLT 140-440 10*3/uL Platelet Normal 192 LAB MPV 7.4-10.4 fL MPV Normal 8.6 LAB GRAN% 40.0-80.0 % Granulocytes High 83.7 LAB LYMP% 20.0-40.0 % Low Lymphocytes 5.8 LAB MONO% 2.0-10.0 % Monocytes High 10.2 LAB EOS% 1.0-6.0 % Low Eosinophils 0.1 LAB BAS% 0.0-2.0 % Basophils Normal 0.2 LAB ANC 1.8-7.0 10*3/uL Abs High Neutrophile Cnt 9.3 LAB ALC 1.0-4.3 10*3/uL Low Abs Lymph Cnt 0.7 LAB AMC 0.0-0.8 10*3/uL Abs Monocyte High Cnt 1.1 LAB AEC 0.0-0.5 10*3/uL Abs Eosin Cnt Normal 0.0 LAB ABC 0.0-0.2 10*3/uL Abs Baso Cnt Normal 0.0 Performed By: #### HEMDF, ESR #### [place] Self Represent[employer] Document Preparation [address] [place] [phone] SED RATE Collected: 05/22/2018 Status: F Source: [facility] 5:16 PM SYSTEM REPOSITORY TYPE CODE TESTS RESULT OUT OF RANGE REFERENCE UNITS LAB ESR 0-10 mm/h High Sed Rate 13 Performed By: #### HEMDF, ESR #### [email or web address] [address] [place] [address] CR ELBOW 3+ VIEWS Observed: 05/22/2018 Status: F Source: [facility] RIGHT 4:31 PM SYSTEM REPOSITORY Patient Name: BALJINDER PACHECO Diagnostic Radiology Exam Date/Time 05/22/2018 16:24:59 EST Exam CR Elbow 3+ Views Right Ordering Physician [id number] DIANA WEST Accession Number [id number] CPT4 Codes 24289 () Reason For Exam pain Report Clinical indications: Right elbow pain FINDINGS: Three views are submitted. There are no prior exams for comparison. Bone mineralization is normal. No fracture or dislocation is seen. There is no evidence of joint effusion. Calcific density is seen in the expected location of the distal triceps tendon and there appears to be some minimal enthesophyte formation on the olecranon. These features raise the question of possible underlying calcific tendinitis. There is no evidence of joint effusion. There are no radiopaque foreign bodies. There is no soft tissue gas formation. IMPRESSION: No acute osseous abnormality of the right elbow. Possible calcific tendinitis as noted above. Report Dictated on Final Dictated: 05/22/2018 4:31 pm Dictating Physician: MD OQUENDO RUSSELL Signed Date and Time: 05/22/2018 4:37 pm Signed by: MD OQUENDO RUSSELL Transcribed Date and Time: 05/22/2018 4:31 CR CHEST PORTABLE Observed: 05/22/2018 Status: F Source: [facility] 4:28 PM SYSTEM REPOSITORY Patient Name: BALJINDER PACHECO Diagnostic Radiology Exam Date/Time 05/22/2018 16:24:59 EST Exam CR Chest Portable Ordering Physician MD KAILASH, SALINA Henning Accession Number [id number] CPT4 Codes 66926 () Reason For Exam fever Report Clinical Indications: Fever Views: 1 Comparisons: none Heart: Size within normal limits. Mediastinum: Unremarkable. Lungs: No evidence of infiltrate, effusion or acute interstitial process. Osseous and soft tissue structures: Generally intact. Impression: No radiographic evidence of active cardiopulmonary process. . Report Dictated on Final Dictated: 05/22/2018 4:28 pm Dictating Physician: MD OQUENDO RUSSELL Signed Date and Time: 05/22/2018 4:31 pm Signed by: MD OQUENDO RUSSELL Transcribed Date and Time: 05/22/2018 4:28 URINALYSIS,MACRO Collected: 05/22/2018 Status: F Source: [facility] 4:19 PM SYSTEM REPOSITORY TYPE CODE TESTS RESULT OUT OF REFERENCE UNITS RANGE LAB APPUR Clear NA Appearance clear LAB COLUR Lt. Yellow NA Color yellow LAB USG 1.005-1.030 NA Specific Normal [place],Urine 1.010 LAB UPH 5.0-8.0 NA pH,Urine Normal 5.0 LAB ULUK Negative NA Leukocytes NEG LAB UNIT Negative NA Nitrites NEG LAB UPRO Negative mg/dL Total Protein,Urine 25 LAB UGLU Negative mg/dL Glucose,Urine NORM LAB UKET Negative mg/dL Ketone,Urine Trace LAB UURO 0-1 mg/dL Urobilinogen 4 LAB UBIL Negative NA Bilirubin,Ur NEG LAB UBLD Negative {RBC}/uL Occult Blood,Ur 50 Performed By: #### UAMAC, UAMIC #### [email or web address] [address] [address] URINALYSIS,MICROSCOPIC Collected: Status: F Source: [facility] 05/22/2018 4:19 PM HEALTH SYSTEM REPOSITORY TYPE CODE TESTS RESULT OUT OF REFERENCE UNITS RANGE LAB VOLUR NA Volume,Urine 12 ml LAB WBCU 0-5 /[HPF] WBC,Urine 6 - 10 LAB RBCU 0-2 /[HPF] RBC,Urine 11 - 25 LAB EPIU 3-5 /[HPF] Epithelial Cells 6 - 10 LAB RENATO Negative NA Bacteria Few (1-5) LAB AMUR Negative NA Amorphous Urates Few (1-5) Performed By: #### UAMAC, UAMIC #### [facility] [address] [address] Observed: 05/22/2018 Status: F Source: [facility] CULTURE URINE 4:19 PM SYSTEM REPOSITORY Order Comment: Specimen Source Comment:Urine, clean catch CULTURE URINE --> Status: F No growth (<1,000 CFU/ml). Performed By: #### C/UR #### [email or web address] [address] Observed: 05/22/2018 Status: F Source: [facility] CULTURE BLOOD 4:17 PM SYSTEM REPOSITORY Order Comment: Specimen Source Comment:Blood CULTURE BLOOD --> Status: F No growth at 5 days. Performed By: #### C/BLD #### [email or web address] [address] Observed: 05/22/2018 Status: F Source: [facility] CULTURE BLOOD (TWO) 3:55 PM SYSTEM REPOSITORY Order Comment: Specimen Source Comment:Blood CULTURE BLOOD (Two) --> Status: F No growth at 5 days. Performed By: #### C/BLT #### [facility] [address] [address] ED PROVIDER NOTE Observed: 05/22/2018 Status: F Source: [facility] 2:10 PM SYSTEM REPOSITORY I have seen this patient in conjunction with the medical administrator, Dr. Deena Jimenez I independently examined and evaluated Baljinder Pacheco. In brief, patient is coming in from outside hospital due to concern for possible septic joint. Patient fell down a week ago. Had been complaining of right-sided elbow pain and swelling. This morning he had fevers and chills. An x-ray at the outside hospital showed possible bony erosion as well as a fluid collection. Patient also had lactic acidosis of 5.3. Focused exam revealed soft nontender abdomen. Clear to auscultation bilaterally or patient has full range of motion in the RIGHT elbow. He does have some swelling at the elbow with some erythema and tenderness ED course: Low suspicion that the patient's fever, lactic acidosis could be from an elbow bursitis even if it is infected. There is a bony erosions that is a possibility and we will consult orthopedics. Basic labs, ESR CRP were obtained per patient already received a dose of vancomycin. His urine did look like it could be infected so we will send this off as well as flu swab and chest x-ray. Patient was given a dose of Rocephin here. His urine from [id number] had 10-25 WBCs, 3+ bacteria, positive leuk esterase. This was not contaminated with epithelial cells. ECG obtained at 16:07 was interpreted by myself as revealing sinus rhythm with ventricular rate of 89. [place] is normal. Rhythm is regular. UT interval, QRS duration and QTc interval are within normal limits. There are no ST segment elevations or depressions appreciated. There are T-wave inversions in III. ECG reveals normal sinus rhythm with non-specific changes. Patient was given a dose of Rocephin here. Orthopedics has evaluated the elbow. They feel that this is likely an aseptic bursitis versus a calcified tendinitis. They do not feel that this is a septic joint. I do agree with this as patient does have full range of motion in the elbow. They have recommended antibiotics and dressing management per primary team. Patient's labs here are premature unremarkable. We did consult the AR due to the patient's initial lactic acidosis and urine infection at the outside hospital. At this time, after discussion with the family they do not plan on admitting the patient. We will send the patient on Keflex due to the infection in that RIGHT elbow. Patient is already on Bactrim as an outpatient. We have instructed him to follow up with PCP and to return to the ED with any worsening symptoms All diagnostic, treatment, and disposition decisions were made by myself in conjunction with the resident. For all further details of the patient's emergency department visit, please see the resident's documentation. Comment: Please note this report has been produced using speech recognition software and may contain errors related to that system including errors in grammar, punctuation, and spelling, as well as words and phrases that may be inappropriate. If there are any questions or concerns please feel free to contact the dictating provider for clarification. Salina Linder MD MD Salina Fox MD 05/22/182026 ED PROVIDER NOTE Observed: 05/22/2018 Status: F Source: [facility] 2:10 PM SYSTEM REPOSITORY Emergency Department Encounter [facility] EMERGENCY DEPT Patient: Baljinder Pacheco : 1945 Date of Evaluation: 05/22/2018 ED Resident Provider: Deena Jimenez MD ED care was supervised by Dr. Linder who independently examined and evaluated the patient. Please see their attestation note for further details. Chief Complaint Chief Complaint Patient presents with ? Joint Swelling pt fell 1 week ago and has increased swelling and pain in his right elbow. Pt has had nausea and a fever since 3am today. pt was seen at [facility] and transfered to [facility]. SYLVIA Pacheco is a 73 y.o. male who presents to the emergency department for R elbow pain. Pain has been present for 1 wk duration which started after fall on R elbow. The patient fell 1 week ago in the driveway after slipping on ice. He denies hitting his head, LOC, palpitations, prodromal symptoms prior to his fall. Patient received Bactrim and completed course as outpatient. This morning at 3AM patient started feeling nauseas and febrile. Patient was brought to [facility] ED by paramedics after being found by family shaking unconsciously. ED workup in [facility] showed possible bony erosion in R elbow xray, lactic acidosis 5.9 (resolved to 1.9 with 3L NS), elevated cr 1.66 (no baseline), and 3+ bacteria in urine. One dose of vanc, and fentanyl was given in [facility] ED and he was transferred to [facility]. At [facility], patient was mildly hypotensive in the ED (92/60), but afebrile. Repeat labs (CBC, BMP, UA+culture) as well as Influenza, ESR, CRP. CXR was ordered, R Elbow xrays uploaded from [facility], readout form [facility] stated: R olecranon shows increased soft tissue swelling with apparent bone erosion- bone loss at the cortical margin potentially representing septic bursitis with osteomyelitis. However, [facility] read as tendonitis. Patient does not recall his last tetnus booster, and states the driveway on which he fell was dirty. At this time, his pain is 6/10. PE revealed full range of motion in the R elbow, preserved strength, preserved vascular perfusion, and skin is intact on the R elbow. However, patient states his R digits feel numb. Patient still currently admits of fevers, and chills, but denies abdominal pain, nausea (no longer nauseous), vomiting, urinary discomfort, loss of bowel/bladder function. Tetnus booster, 1x rocephin, and 2mg morphine was given at [facility] ED. Ortho was consulted and signed off-- recommending rest and care per primary. Patient is now stable and bp increased to 112/69. Stable for dc home with instructions for rest and NSAIDS. UTI is asymptomatic and patient was given abx in both EDs. ROS: Review of Systems ROS reviewed and otherwise acutely negative except as in the [facility]. Past History No past medical history on file. No past surgical history on file. Social History Social History ? Marital status: Spouse name: N/A ? Number of children: N/A ? Years of education: N/A Social History Main Topics ? Smoking status: Former Smoker Quit date: 05/22/1973 ? Smokeless tobacco: Never Used ? Alcohol use Not on file ? Drug use: Unknown ? Sexual activity: Not on file Other Topics Concern ? Not on file Social History Narrative ? No narrative on file Medications/Allergies Previous Medications No medications on file No Known Allergies PhysicalExam ED Triage Vitals [05/22/18 1418] BP Temp Temp Source Pulse Resp SpO2 Height Weight 92/60 98.9 ?F (37.2 ?C) Oral 92 20 99 % 5' 11 (1.803 m) 190 lb (86.2 kg) Physical Exam Constitutional: He is oriented to person, place, and time. He appears well-developed and well-nourished. No distress. HENT: Head: Normocephalic and atraumatic. Right Ear: External ear normal. Left Ear: External ear normal. Mouth/Throat: Oropharynx is clear and moist. Eyes: Pupils are equal, round, and reactive to light. Conjunctivae and EOM are normal. Neck: Normal range of motion. Neck supple. No tracheal deviation present. Cardiovascular: Normal rate, regular rhythm and normal heart sounds. Exam reveals no gallop and no friction rub. No murmur heard. Pulmonary/Chest: Effort normal and breath sounds normal. No respiratory distress. He has no wheezes. He has no rales. Abdominal: Soft. Bowel sounds are normal. He exhibits no distension. There is no tenderness. There is no rebound and no guarding. Musculoskeletal: Normal range of motion. He exhibits edema, tenderness and deformity. full range of motion in the R elbow, preserved strength, and preserved vascular perfusion. However, patient states his R digits feel numb. Neurological: He is alert and oriented to person, place, and time. Skin: Skin is warm and dry. No rash noted. No erythema. Skin intact Psychiatric: He has a normal mood and affect. Nursing note and vitals reviewed. Diagnostics Labs: Results for orders placed or performed during the hospital encounter of 05/22/18 Influenza A+B, PCR Result Value Ref Range Influenza A by PCR NEGATIVE Influenza B by PCR NEGATIVE RSV PCR NEGATIVE Urinalysis Result Value Ref Range Appearance clear Clear NA Color, UA yellow Lt. Yellow NA Specific [place], Urine 1.010 1.005 - 1.030 NA pH, Urine 5.0 5.0 - 8.0 NA LEUKOCYTES, UA NEG Negative NA Nitrite, Urine NEG Negative NA Total Protein, Urine 25 Negative mg/dL Glucose, Ur NORM Negative mg/dL Ketones, Urine Trace Negative mg/dL Urobilinogen, Urine 4 0 - 1 mg/dL Bilirubin, Urine NEG Negative NA Occult Blood,Urine 50 Negative [RBC]/uL Urinalysis with Microscopic Result Value Ref Range Urine Volume 12 ml NA WBC, UA 6-10 0 - 5 /[HPF] RBC, UA 11-25 0 - 2 /[HPF] Epithelial Cells 6-10 3 - 5 /[HPF] Bacteria, UA Few (1-5) Negative NA Amorphous Urate Few (1-5) Negative NA Sedimentation Rate Result Value Ref Range Sed Rate 13 (H) 0 - 10 mm/h CBC Auto Differential Result Value Ref Range WBC 11.1 (H) 3.6 - 10.7 10*3/uL RBC 4.16 (L) 4.40 - 5.90 10*6/uL Hemoglobin 13.1 13.0 - 18.0 g/dL Hematocrit 39.6 (L) 40.0 - 52.0 % MCV 95.4 80.0 - 98.0 fL MCH 31.5 26.0 - 34.0 pg MCHC 33.0 32.0 - 36.0 % RDW 14.5 11.5 - 14.5 % Platelets 192 140 - 440 10*3/uL MPV 8.6 7.4 - 10.4 fL Granulocytes % 83.7 (H) 40.0 - 80.0 % Lymphocyte % 5.8 (L) 20.0 - 40.0 % Monocytes 10.2 (H) 2.0 - 10.0 % Eosinophils 0.1 (L) 1.0 - 6.0 % Basophils 0.2 0.0 - 2.0 % Absolute Neut # 9.3 (H) 1.8 - 7.0 10*3/uL Absolute Lymph # 0.7 (L) 1.0 - 4.3 10*3/uL Absolute [place] # 1.1 (H) 0.0 - 0.8 10*3/uL Absolute Eos # 0.0 0.0 - 0.5 10*3/uL Absolute Baso # 0.0 0.0 - 0.2 10*3/uL C-Reactive Protein Result Value Ref Range CRP 76.5 (H) 0.0 - 6.0 mg/L Basic Metabolic Panel Result Value Ref Range Sodium 139 135 - 145 mmol/L Potassium 4.9 3.5 - 5.1 mmol/L Chloride 112 (H) 98 - 107 mmol/L CO2 23 22 - 30 mmol/L Anion Gap 4 NA Glucose 82 70 - 100 mg/dL BUN 14 7 - 20 mg/dL CREATININE 1.28 (H) 0.52 - 1.25 mg/dL eGFR >60.0 >60 mL/min EGFR IF NonAfrican Nauruan 54.8 >60 mL/min Calcium 8.2 (L) 8.4 - 10.4 mg/dL Radiographs: Xr Elbow Right (min 3 Views) Result Date: 05/22/2018 Patient Name: BALJINDER PACHECO ---Diagnostic Radiology--- Exam Date/Time 05/22/2018 16:24:59 EST Exam CR Elbow 3+ Views Right Ordering Physician [id number] - DIANA PADILLA Accession Number [id number] CPT4 Codes 65569 () Reason For Exam pain Report Clinical indications: Right elbow pain FINDINGS: Three views are submitted. There are no prior exams for comparison. Bone mineralization is normal. No fracture or dislocation is seen. There is no evidence of joint effusion. Calcific density is seen in the expected location of the distal triceps tendon and there appears to be some minimal enthesophyte formation on the olecranon. These features raise the question of possible underlying calcific tendinitis. There is no evidence of joint effusion. There are no radiopaque foreign bodies. There is no soft tissue gas formation. IMPRESSION: No acute osseous abnormality of the right elbow. Possible calcific tendinitis as noted above. Report Dictated on --- Final --- Dictated: 05/22/2018 4:31 pm Dictating Physician: MD OQUENDO RUSSELL Signed Date and Time: 05/22/2018 4:37 pm Signed by: MD OQUENDO RUSSELL Transcribed Date and Time: 05/22/2018 4:31 Xr Chest Portable Result Date: 05/22/2018 Patient Name: BALJINDER PACHECO ---Diagnostic Radiology--- Exam Date/Time 05/22/2018 16:24:59 EST Exam CR Chest Portable Ordering Physician MD KAILASH, SALINA Henning Accession Number [id number] CPT4 Codes 11133 () Reason For Exam fever Report Clinical Indications: Fever Views: 1 Comparisons: none Heart: Size within normal limits. Mediastinum: Unremarkable. Lungs: No evidence of infiltrate, effusion or acute interstitial process. Osseous and softtissue structures: Generally intact. Impression: No radiographic evidence of active cardiopulmonary process. . Report Dictated on --- Final --- Dictated: 05/22/2018 4:28 pm Dictating Physician: MD OQUENDO RUSSELL Signed Date and Time: 05/22/2018 4:31 pm Signed by: MD OQUENDO RUSSELL Transcribed Date and Time: 05/22/2018 4:28 Procedures/EKG: Procedures ED Course and MDM NIH Stroke Scale Interval: Baseline Level of Consciousness (1a. ): Alert LOC Questions (1b. ): Answers both correctly LOC Commands (1c. ): Obeys both correctly Best Gaze (2. ): Normal Visual (3. ): No visual loss Facial Palsy (4. ): Normal Motor Arm, Left (5a. ): No drift Motor Arm, Right (5b. ): No drift Motor Leg, Left (6a. ): No drift Motor Leg, Right (6b. ): No drift Limb Ataxia (7. ): Absent Sensory (8. ): Normal Best Language (9. ): No aphasia Dysarthria (10. ): Normal Extinction and Inattention (11): No neglect Total: 0 ED Medication Orders Start Ordered Status Ordering Provider 05/22/18202805/22/182029 ibuprofen (ADVIL;MOTRIN) tablet 400 mg EVERY 4 HOURS PRN Ordered DEENA JIMENEZ 05/22/18202705/22/182029 acetaminophen (TYLENOL) tablet 650 mg EVERY 4 HOURS PRN Ordered DEENA JIMENEZ 05/22/18 1615 05/22/18 1604 cefTRIAXone (ROCEPHIN) 1 g IVPB in 50 mL D5W minibag ONCE Last JUL action: Stopped - by JONG RANDALL on 05/22/18 at 1724 ANDEENA 05/22/18 1600 05/22/18 1553 Uwsrwms-Ltaaol-Byycn Pertussis (BOOSTRIX) injection 0.5 mL ONCE Last JUL action: Given - by JONG RANDALL on 05/22/18 at 1638 ANDEENA 05/22/18 1600 05/22/18 1553 morphine (PF) injection 2 mg ONCE Last JUL action: Given - by JONG RANDALL on 05/22/18 at 1637 ANDEENA Final Impression 1. Pain of right upper extremity 2. Urinary tract infection without hematuria, site unspecified R Elbow Pain s/p Mechanical Fall 1 week prior - fevers and chills, xray shows bony erosion at Bon. ACH read as tendonitis - repeat labs (CBC, BMP) as well as Influenza, ESR, CRP. CXR was ordered, R Elbow xrays uploaded from disk - EKG - ortho consult, signed off - tetanus booster - 2mg morphine - fu W/PCP w/in one week Bacteriuria - asymptomatic, possibly contributed to lactic acidosis at Bon? - UA+culture repeat pending - 1 dose rocephin in ED MARTINE vs CKD - no baseline, [facility] lab showed cr 1.6 DISPOSITION (Please note that portions of this note may have been completed with a voice recognition program. Efforts were made to edit the dictations but occasionally words are mis-transcribed.) Deena Jimenez MD Resident Provider Pager: [phone] Deena Jimenez MD Resident 05/22/18 1706 Deena Jimenez MD Resident 05/22/182012 Deena Jimenez MD Resident 05/22/182030 LACTIC ACID Collected: 05/22/2018 Status: F Source: [place] 9:30 AM [facility] REPOSITORY TYPE CODE TESTS RESULT OUT OF RANGE REFERENCE UNITS LAB L503.6005 0.4-2.0 mmol/L Normal LACTIC ACID 1.9 Performed By: #### L503.6005 #### [facility] [address] [place], [address] EMERGENCY DEPARTMENT Observed: 05/22/2018 Status: F Source: [place] SUMMARY 8:12 AM [facility] REPOSITORY [facility] Medical Records Department [address] [place] [address] Emergency Department Summary 05/22/18 0519 MR#: [id number] Acct: [id number] Name: BALJINDER PACHECO Rep #: [id number] : 1945 73 From: Devon Weiner MD PCP: Philomena FLETCHER,Antonia Crespo Status: REG ER - ER Visit Summary Date of Service: 05/22/18 Chief Complaint: Shaking History of Present Illness: The patient is a 73 M who presents with Reiger's. He has been having chills for the past week. They have checked temperature at home but he has not had a fever. Tonight he woke up with chills and felt cold and just could not quit shaking. EMS was called. He is found to be tachycardic and febrile. He also developed nausea and vomiting this morning. He has had 2 episodes of nonbloody nonbilious emesis. He had a cystoscopy 2 days ago. He has had some dysuria urgency and frequency since that time. He also recently had a right traumatic olecranon bursitis as well as possible septic bursitis. He did have fluid sent recently which showed 3+ gram-positive cocci but culture was negative. He is still on Bactrim for this. He denies any chest pain shortness of breath cough congestion rhinorrhea sore throat abdominal pain diarrhea. No sick contacts Physical Examination: Temperature 100.9 heart rate 136 blood pressure 124/67 pulse ox 93% on room air respiratory rate 18 Patient is markedly diaphoretic Moist mucous membranes Heart is regular rhythm tachycardia Lungs are clear without rales rhonchi wheezes Abdomen soft nontender and nondistended Patient does have swelling over the right elbow consistent with olecranon bursitis and mild tenderness he has good range of motion of the elbow without pain I do not appreciate overlying erythema it is not hot to the touch Alert no focal or lateralizing neurological deficits Test Results: EKG shows sinus rhythm at a rate of 123 with a right bundle branch block. Labs notable for CO2 of 18.0, creatinine 1.66, lactic acid 5.3. Troponin is negative. Urinalysis shows 10-25 WBCs and 3+ bacteria. Blood and urine cultures were sent. Chest x-ray shows no acute disease. Elbow x-ray shows increased soft tissue swelling and bony erosion concerning for septic bursitis with osteomyelitis. Emergency Department Course and Treatment: Patient was treated with IV fluids and given Tylenol for fever. He was empirically treated with Zosyn and vancomycin early in the patient's course. Patient does meet criteria for septic shock. The orthopedic surgeon who has seen him previously, Dr. Kelsey is unavailable. There is only a physician assistant corporation counsel covering who is only covering the office. I spoke to the orthopedic surgeon with the other group, Dr. Nima Rees who recommended transfer. I spoke to the psychology technician at [facility] who thought that he may be okay for a monitored bed rather than the ICU and also wanted orthopedic input so the patient was transferred to the emergency department for consultations there. Treatment Plan: [] Disposition: Transfer Impression: Septic shock Right septic olecranon bursitis Osteomyelitis This note was generated with [employer] dictation software. It may contain incorrect words, spelling, and punctuation that were not noted in review of the chart prior to signing ED Disposition - Plan for ED Patient: Chief Complaint: Nausea/Vomiting Referrals: Antonia Bhakta Chi, MD [Primary Care Provider] - What to do if you have Problems For any increased pain, shortness of breath, bleeding, nausea or vomiting, chest pain, or any unexpected problems, contact your Primary Care Provider. Call [facility] ([phone]) or report to the closest Emergency Room. Call 911 if necessary. 05/22/18811 <Electronically signed by Devon Weiner MD> Date Devon Weiner MD Cosigner Signature (If Indicated): Date CC: Antonia Bhakta MD URINALYSIS, COMPLETE Collected: 05/22/2018 Status: F Source: [place] 6:00 AM [facility] REPOSITORY Order Comment: Order Date: 05/22/18 How was Urine Obtained? CHEF & OWNER TO SPECIFY TYPE CODE TESTS RESULT OUT OF RANGE REFERENCE UNITS LAB L400.3000 Yellow COLOR Normal Yellow LAB L400.3050 Clear Normal CLARITY Sl. Cloudy LAB L400.3200 Normal mg/dl Normal GLUCOSE, UR Normal LAB L400.3300 Negative mg/dL Normal BILIRUBIN URINE Negative LAB L400.3400 Negative mg/dl High 5 KETONE UR LAB L400.3465 1.002-1.030 Normal SP.GR. DIPSTX 1.020 LAB L400.3550 5.0 - 8.0 pH UR Normal 5.0 LAB L400.3600 Negative mg/dl High PROT 15 DIPSTX LAB L400.3700 Normal mg/dl High 1 UROBILI LAB L400.3750 Negative Normal NITRITE UR Negative LAB L400.3780 Negative /ul High 25 OCCULT BLOOD-UR LAB L400.3800 Negative /ul High LEUK ESTERASE 100 LAB L400.4050 0-5 /hpf WBC Normal 10-25 SEEN LAB L400.4100 0-5 /hpf 0 Normal RBC-UA SEEN LAB L400.4150 0-5 /hpf SQUAM 0 Normal EPI SEEN LAB L400.4300 None Seen /hpf 3+ Normal BACTERIA LAB L400.4350 <or=2+ /hpf 0 Normal MUCUS, URINE SEEN Performed By: #### L400.0001 #### [facility] [address] [place], [address] Observed: 05/22/2018 Status: F Source: [place] CULTURE, URINE 6:00 AM [facility] REPOSITORY Order Date: 05/22/18 Urine Culture ORGANISM 1: Presumptive E. coli [place] Count >100,000 Presumptive E. coli: REACTION Amoxacillin/Clavulanic Acid $ 8 S Ampicillin $ >=32 R Ampicillin/Sulbactam $ 16 I Cefazolin $ <=4 S Cefepime $ <=1 S Ceftriaxone $ <=1 S Ciprofloxacin $ >=4 R ESBL - Ertapenim $$$ <=0.5 S Gentamicin $ <=1 S Imipenem *NF <=0.25 S Levofloxacin $ >=8 R Nitrofurantoin $ <=16 S Piperacillin/Tazobactam $$ <=4 S Tobramycin $ <=1 S Trimethoprim/Sulfametho $ >=320 R (NF) indicates non-formulary drug at [facility]. Approval by Infectious Disease Specialist required before non-formulary drugs may be ordered and/or dispensed. Performed By: #### M100.0650 #### [facility] [address] [place], [address] Observed: 05/22/2018 Status: F Source: [place] CULTURE, BLOOD (WB) 5:30 AM [facility] REPOSITORY BC DRAWN 05-22-18 AT 0530 AEROBIC AND ANAEROBIC BOTTLE GRAM STAIN = GRAM NEGATIVE RODS RESULTS CALLED TO Sherry HAGER 05/22/18 1358 Kathy Murillo. REPORT READ BACK BY LEONARDO. REFER TO [facility] SENSITIVITY ORGANISM 1: GNR lactose nitro man Performed By: #### M200.1000 #### [facility] [address] [place], [place], [address] ELBOW MIN 3 VIEWS Observed: 05/22/2018 Status: F Source: [place] 5:18 AM [facility] REPOSITORY [facility] Imaging Services [address] [place] [address] Elbow min 3 Views MR#: [id number] Acct: [id number] Name: BALJINDER PACHECO Rep #: [id number] : 1945 M 73 From: Chauncey Villareal MD PCP: Philomena FLETCHER,Zelnas Status: REG ER Study: Elbow min 3 Views Date of Exam: 05/22/18 Exam# [id number] Ordering Dr: Devon Weiner MD HISTORY: FELL ABOUT A MONTH AGOSTILL HAVING PAIN IN RT ELBOW COMPARISON: 04/24/2018 FINDINGS: XR right Elbow Min 3 Views: No dislocation or acute fracture. Joint spaces are preserved. The distal humeral fat pads are not displaced. Corticated bony spur at the olecranon region, unchanged. Olecranon soft tissue swelling is increased compared to previous which may reflect bursitis. In addition, the posterior olecranon shows poor definition with apparent erosion-bone loss at the posterior cortex. Septic type bursitis with osteomyelitis is possible. RAD/Elbow min 3 Views IMPRESSION: 1. The right olecranon region shows increased soft tissue swelling with apparent bone erosion-bone loss at the cortical margin potentially representing septic bursitis with osteomyelitis. 2. Further correlation could be obtained with 3 phase bone scan. Alternatively, bursal needle aspiration could be performed. at 0638 Reported and signed by: Chauncey Villareal MD Electronically Signed: Chauncey Villareal, at 6:37 EST Tel , Service support , CC: Devon Weiner MD; Antonia Bhakta MD Manufacturing Maintenance Mechanic: Signed CHEST PA AND LATERAL Observed: 05/22/2018 Status: F Source: [place] 5:18 AM [facility] REPOSITORY [facility] Imaging Services [address] [place] [address] Chest PA and Lateral MR#: [id number] Acct: [id number] Name: BALJINDER PACHECO Rep #: [id number] : 1945 M 73 From: Chauncey Villareal MD PCP: Antonia Bhakta MD, Chi Status: REG ER Study: Chest PA and Lateral Date of Exam: 05/22/18 Exam# [id number] Ordering Dr: Devon Weiner MD HISTORY: FEVERDENIES ANY SOB, COUGH OR PAIN EXAM:XR Chest 2 Views: COMPARISON: 2017 FINDINGS: EKG leads in place. Shallow inspiration with hypoaeration of the lung bases, more so on the left. Normal heart size. No acute infiltrate seen. No vascular congestion or pleural effusion. No pneumothorax. IMPRESSION: No acute cardiopulmonary disease. at 0648 Reported and signed by: Chauncey Villareal MD Electronically Signed: Chauncey Villareal, at 6:47 EST Tel , Service support , RAD/Chest PA and Lateral CC: Devon Weiner MD; Antonia Bhakta MD Manufacturing Maintenance Mechanic: Signed CBC W/DIFF, AUTOMATED Collected: 05/22/2018 Status: F Source: [place] 5:00 AM [facility] REPOSITORY TYPE CODE TESTS RESULT OUT OF RANGE REFERENCE UNITS LAB L100.1000 4.4-11.0 K/mm3 Normal WBC 4.8 LAB L100.1200 4.6-6.2 M/mm3 Low RBC 4.59 LAB L100.1300 13.0-16.5 g/dl Normal HGB 14.3 LAB L100.1400 40-54 % Normal HCT 44.9 LAB L100.1500 80-94 fL High MCV 97.8 LAB L100.1600 27.0-32.0 pg Normal MCH 31.2 LAB L100.1700 32-36 g/gl Low MCHC 31.8 LAB L100.1810 11.6-14.6 % Normal RDW CV 14.2 LAB L100.1820 35.1-43.9 fl High RDW SD 50.9 LAB L100.1900 150-450 K/mm3 Normal PLT 158 LAB L100.2000 6.2-12.0 fl Normal MPV 9.8 LAB L100.2100 47-70 % High NEUT% 83.0 LAB L100.2200 19-41 % Low LY% 13.2 LAB L100.2300 0-10 % Normal MONO% 1.9 LAB L100.2400 0-5 % Normal EO% 1.5 LAB L100.2500 0-1 % Normal BASO% 0.2 LAB L100.2550 0.0-0.9 % Normal IM GRAN % 0.200 Result Comment: IG% - Immature Granulocytes (promyelocytes, myelocytes and metamyelocytes) > 1% indicates that a LEFT SHIFT is Present. LAB L100.2620 2.0-7.7 X10 3/uL Normal Absolute Neut 4.0 LAB L100.2720 0.83-4.51 X10 3/ul Low Absolute Lymph 0.63 Performed By: #### L100.0100 #### [facility] [address] [place], [address] COMPREHENSIVE METABOLIC Collected: 05/22/2018 Status: F Source: [place] PROFIL 5:00 AM [facility] REPOSITORY TYPE CODE TESTS RESULT OUT OF RANGE REFERENCE UNITS LAB L501.0100 74-106 mg/dL High GLU 135 Result Comment: Fasting Glucose result greater than or equal to 126 mg/dL suggests DIABETES MELLITUS per A.D.A. criteria. Please note revised GLUCOSE reference range effective 2017. LAB L501.1000 7-18 mg/dL Normal BUN 17 LAB L501.1100 0.70-1.30 mg/dL High CREAT,SERUM 1.66 Result Comment: The validity of the calculated GFR AND GFRAA in patients over 70 years has not been determined. Clinical correlation is essential. LAB L501.1110 >60 mL/min Low EST GFR 43 Result Comment: Non- GFR Calc LAB L501.1115 >60 mL/min Low EST GFR - AA 52 Result Comment: GFR Calc LAB L501.1255 ml/min Normal Estimated CRCL 39.70 LAB L501.1300 10-20 RATIO Normal BUN/CRE 10.2 LAB L501.1500 6.4-8. g/dL Normal 2 T PROT 6.9 LAB L501.1800 3.2-5. g/dL Normal 0 ALB 3.3 LAB L501.1950 2.2-4. g/dL Normal 2 GLOB 3.6 LAB L501.2000 0.9-2. RATIO Normal 4 A/G 0.9 LAB L501.2200 8.5-10 mg/dL Normal .1 CA 8.6 LAB L501.4100 15-37 U/L Normal AST 20 LAB L501.4305 45-117 U/L Normal ALK P 89 LAB L501.4405 16-61 U/L Normal ALT 29 LAB L501.4600 0.20-1 mg/dL Normal .00 T BILI 0.40 LAB L501.5300 136-14 mmol/L Normal 5 NA 140 LAB L501.5600 3.5-5. mmol/L Normal 1 K 4.4 LAB L501.5900 98-107 mmol/L High CL 109 LAB L501.6100 21.0-3 mmol/L Low 2.0 CO2 18.0 LAB L501.6200 5-15 Normal GAP 13 Performed By: #### L500.4050, L501.2450, L501.4010 #### [facility] [address] [place], [address] LIPASE Collected: 05/22/2018 Status: F Source: [place] 5:00 AM [facility] REPOSITORY TYPE CODE TESTS RESULT OUT OF RANGE REFERENCE UNITS LAB L501.2450 73-393 U/L Normal LIPASE 106 Performed By: #### L500.4050, L501.2450, L501.4010 #### [facility] [address] [place], [address] TROPONIN-I Collected: 05/22/2018 Status: F Source: [place] 5:00 [facility] REPOSITORY TYPE CODE TESTS RESULT OUT OF RANGE REFERENCE UNITS LAB L501.4010 <0.045 ng/mL Normal < 0.015 TROPONIN-I Result Comment: TROPONIN-I EXPECTED VALUES <0.045 Negative 0.045 - 0.590 Consistent with Cardiac Damage > OR = 0.600 Critical Value Not every elevated troponin is indicative of [place]. These values should be used with clinical judgement in examining the patient's clinical picture for diagnosis. To establish a diagnosis of [place] versus myocardial injury, there must be a demonstrated rise and/or fall in the troponin values, in addition to ischemic symptoms, EKG changes, new regional wall motion abnormality, and/or angiographical evidence. PLEASE NOTE: REFERENCE RANGES EDITED 17 Performed By: #### L500.4050, L501.2450, L501.4010 #### [facility] [address] [place], [address] LACTIC ACID Collected: 05/22/2018 Status: F Source: [place] 5:00 AM [facility] REPOSITORY Order Comment: Yes/No query for Sepsis Lactate Rule Y TYPE CODE TESTS RESULT OUT OF REFERENCE UNITS RANGE LAB L503.6005 0.4-2.0 mmol/L High alert LACTIC ACID 5.3 Result Comment: Critical Result(s) Called at: 05:55:45 05/22/2018 by: KALEB RAHMAN IN ED Performed By: #### L503.6005 #### [facility] [address] [place], [address] PROTHROMBIN TIME W/INR Collected: 05/22/2018 Status: F Source: [place] 5:00 AM [facility] REPOSITORY TYPE CODE TESTS RESULT OUT OF RANGE REFERENCE UNITS LAB L300.4150 11.7-14.9 SECONDS Normal PROTIME 13.2 LAB L300.4200 Normal INR 1.0 Performed By: #### L300.3900, L300.4310 #### [facility] [address] [place], [address] PARTIAL THROMBOPLAST Collected: 05/22/2018 Status: F Source: [place] TIME 5:00 AM [facility] REPOSITORY TYPE CODE TESTS RESULT OUT OF RANGE REFERENCE UNITS LAB L300.4310 24.1-36.2 Seconds Normal PTT 28.4 Performed By: #### L300.3900, L300.4310 #### [facility] [address] [place], [address] Observed: 05/22/2018 Status: F Source: [place] CULTURE, BLOOD (WB) 5:00 AM [facility] REPOSITORY DRAW SITE LEFT ANTICUB BC DRAWN 05-22-18 AT 0500 AEROBIC AND ANAEROBIC BOTTLE GRAM STAIN = GRAM NEGATIVE RODS RESULTS CALLED TO Sherry HAGER 05/22/18 Gladis8 Kathy Murillo. REPORT READ BACK BY LEONARDO. ORGANISM 1: Escherichia coli Amount Growth Growth Escherichia coli: REACTION Amoxacillin/Clavulanic Acid $ 4 S Ampicillin $ >=32 R Ampicillin/Sulbactam $ 16 I Cefazolin $ <=4 S Cefepime $ <=1 S Ceftriaxone $ <=1 S Ciprofloxacin $ >=4 R ESBL - Ertapenim $$$ <=0.5 S Gentamicin $ <=1 S Imipenem *NF <=0.25 S Levofloxacin $ >=8 R Piperacillin/Tazobactam $$ <=4 S Tobramycin $ <=1 S Trimethoprim/Sulfametho $ >=320 R (NF) indicates non-formulary drug at [facility]. Approval by Infectious Disease Specialist required before non-formulary drugs may be ordered and/or dispensed. Performed By: #### M200.1000 #### [facility] [place], [address] ORTHOPEDIC VISIT Observed: 05/17/2018 Status: F Source: [place] REPORT 9:52 AM [facility] REPOSITORY [facility] [address] [place] [address] OFFICE VISIT Date of Service: 05/16/18 MR#: [id number] Acct: [id number] Name: BALJINDER PACHECO Rep #: [id number] : 1945 Provider: Jemima Kelsey DO Age/Sex: 73/M Location: [facility] Status: Signed Intake Vital Signs05/16/18 Body Mass Index (BMI) 27.2 Intake Visit Reasons: RIGHT ELBOW Is patient in pain?: Yes Allergies No Known Allergies Allergy (Verified 05/16/18 13:15) Medications Aspirin [Aspirin, Baby] 81 mg PO DAILY@0800 12/10/16 [History Confirmed 05/06/18] Tamsulosin HCl [Flomax] 0.4 mg PO DAILY 12/10/16 [History Confirmed 05/06/18] allergy shot IM QWEEK 04/17/18 [History Confirmed 04/17/18] baclofen 10 mg tablet 10 mg PO QHS tab 04/17/18 [History Confirmed 05/06/18] cholecalciferol (vitamin D3) 50,000 unit capsule 50,000 unit PO QWEEK 04/17/18 [History Confirmed 05/06/18] diclofenac sodium 50 mg tablet,delayed release 50 mg PO BID 04/17/18 [History Confirmed 05/06/18] Smz/Tmp Ds [Bactrim Ds] 1 tab PO BID #20 tab 05/06/18 [Rx] PFSH Medical History Right bundle branch block (Acute) Hyperlipidemia (Chronic) BPH (benign prostatic hyperplasia) (Chronic) Psoriasis (Chronic) Surgical History History of appendectomy (Resolved) Hx of cholecystectomy (Resolved) History of appendectomy (Inactive) History of gallbladder disease (Inactive) Family History Brother Cancer Social History Smoking Status: Former smoker quit date: 05/14/73 pack-years: 10 HPI RIGHT ELBOW: Details: BALJINDER PACHECO is a 73 year old M here today for right elbow. Patient states that he had pain and swelling into his right elbow. He notes that he notes that he fell on his elbow about 3 weeks ago. He went to the ED twice due to pain and drainage. They did xrays which was normal. Patient had an aspiration which he is unsure of the results. He was on an antibiotic (bacrtim) which he continues to take as prescribed. He states that his swelling has decreased and it is improving. Patient notes that he no longer has any drainage. He is taking tylenol for pain. Patient states that he has increased pain at night. Denies numbness, tingling or other associated symptoms. bactrim for 10 days, still taking twice daily. no issues with taking antibiotics and feels better overall. ROS Const Reports system reviewed and no [...] additional complaints, except as docu Musc Reports joint swelling Skin/Breast Reports system reviewed and no additional complaints, except as docu Neuro Yes system reviewed and no additional complaints, except as docu Psych Reports system reviewed and no additional complaints, except as docu Endo Reports system reviewed and no additional complaints, except as docu Ortho Exam Right Elbow Skin/Wound: Yes healing Sensation: Radial: I, Ulnar: I, Median: I Motor: Elbow Extension: 5, Elbow Flexion: 5, EPL: 5, FDP-2: 5, 1st Dorsal Interosseous: 5 ELBOW: no erythema, fluctuence Assessment AND Plan Problems 1. Bursitis, olecranon M70.20 Plan xrays of right elbow show no obvious fracture/dislocation, no issues healing well on bactrim for now discussed no one in office next week and if has increased drainage or redness or fever or chills to either contact dr muniz at or the [facility]. other alternative is going back to ER for aspiration/antibiotics. discussed what to look for and how to monitor. finish entire antibiotics may wear arsalan if not too painful Coding Level of Care Code Off vis,est,level 4 Diagnoses Bursitis, olecranon M70.20 05/17/18 0952 <Electronically signed by Jemima Kelsey DO> Date Jemima Kelsey DO Cosigner Signature: Date (if applicable) CC: EMERGENCY DEPARTMENT Observed: 05/09/2018 Status: F Source: [place] SUMMARY 1:54 PM [facility] REPOSITORY [facility] Medical Records Department [address] [place] [address] Emergency Department Summary 05/09/18 1353 MR#: [id number] Acct: [id number] Name: BALJINDER PACHECO Rep #: [id number] : 1945 73 From: Zachery Boles MD PCP: Antonia Bhakta MD, Chi Status: REG ER - ER Visit Summary Date of Service: 05/09/18 Chief Complaint: [] History of Present Illness: The patient is a 73 M [] Physical Examination: [] Test Results: [] Emergency Department Course and Treatment: [] Treatment Plan: [] Disposition: [] Impression: [] This note was generated with [employer] dictation software. It may contain incorrect words, spelling, and punctuation that were not noted in review of the chart prior to signing ED Disposition - Plan for ED Patient: Disposition: Home or Assisted Living Chief Complaint: Cellulitis Instructions: ED Bursitis Elbow Olecranon Prescriptions: Hydrocodone Bitart/Apap 5-325 [Jackson 5MG-325MG] 1 tab PO Q6H PRN PRN 3 Days #10 tab PRN Reason: Pain Referrals: Jemima Kelsey DO [STAFF PHYSICIAN] - Keep Daya appointment Antonia Bhakta Chi, MD [Primary Care Provider] - What to do if you have Problems For any increased pain, shortness of breath, bleeding, nausea or vomiting, chest pain, or any unexpected problems, contact your Primary Care Provider. Call [facility] ([phone]) or report to the closest Emergency Room. Call 911 if necessary. 05/09/18 1354 <Electronically signed by Zachery Boles MD> Date Zachery Boles MD Cosigner Signature (If Indicated): Date CC: Antonia Bhakta MD EMERGENCY DEPARTMENT Observed: 05/09/2018 Status: F Source: [place] SUMMARY 1:47 PM [facility] REPOSITORY [facility] Medical Records Department [address] [place] [address] Emergency Department Summary 05/09/18 1344 MR#: [id number] Acct: [id number] Name: BALJINDER PACHECO Rep #: [id number] : 1945 73 From: Zachery Boles MD PCP: Antonia Bhakta MD, Chi Status: REG ER - ER Visit Summary Date of Service: 05/09/18 Chief Complaint: Cellulitis right elbow History of Present Illness: The patient is a 73 M who is right- hand dominant presents because of cellulitis right elbow. He was seen on the 24 status post trauma. X-ray of the elbow was negative. He was diagnosed with septic olecranon bursitis. He denies fever, chills or night sweats. He does report pain over the elbow. He does admit that he leans on his elbows. He denies paresthesia, anesthesia motor weakness. He has history of psoriasis. He is on no immunosuppressive meds to treat his psoriasis. There is no history of psoriatic arthritis. He denies history of gout or pseudogout. He was referred to orthopedics for outpatient follow-up and placed on antibiotics. Physical Examination: Vital signs noted and blood pressure slightly elevated 137/72. He is not febrile. There is evidence of olecranon bursitis right. There is no erythema warmth induration. There is an eschar noted. There is no drainage. Patient states there was drainage this morning. Based on description drainage is serous. Axillary, median, radial and ulnar function intact. There is no pain the patient over the lateral medial epicondyle. There is no pain to palpation over the radial head with supination pronation. Test Results: X-ray that was obtained proximally week ago was reviewed and there is no acute process and no evidence of foreign body. Emergency Department Course and Treatment: Needle aspirate was undertaken and findings are consistent with traumatic bursitis. Treatment Plan: Follow-up with orthopedics do not believe hand elbows and symptomatic care Disposition: Discharged home in stable condition Impression: Traumatic olecranon bursitis This note was generated with [employer] dictation software. It may contain incorrect words, spelling, and punctuation that were not noted in review of the chart prior to signing ED Disposition - Plan for ED Patient: Disposition: Home or Assisted Living Chief Complaint: Cellulitis Instructions: ED Bursitis Elbow Olecranon Referrals: Antonia Bhakta Chi, MD [Primary Care Provider] - Jemima Kelsey DO [STAFF PHYSICIAN] - Keep Daya appointment What to do if you have Problems For any increased pain, shortness of breath, bleeding, nausea or vomiting, chest pain, or any unexpected problems, contact your Primary Care Provider. Call [facility] ([phone]) or report to the closest Emergency Room. Call 911 if necessary. 05/09/18 1347 <Electronically signed by Zachery Boles MD> Date Zachery Boles MD Cosigner Signature (If Indicated): Date CC: Jemima Kelsey DO; Antonia Bhakta MD Observed: 05/09/2018 Status: F Source: BON CULTURE, BODY FLUID 11:10 AM [facility] REPOSITORY Gram Stain Gram Stain 3+ Gram positive cocci Very Rare White Blood Cells 3+ Red Cell Stroma Body Fluid Cult No growth in 5 days. Cult, Anaerobic No growth in 5 days. Performed By: #### M100.1300 #### [facility] [address] [place], [address] EMERGENCY DEPARTMENT Observed: 05/06/2018 Status: F Source: [place] SUMMARY 4:48 PM [facility] REPOSITORY [facility] Medical Records Department [address] [place] [address] Emergency Department Summary 05/06/18 1335 MR#: [id number] Acct: [id number] Name: BALJINDER PACHECO Rep #: [id number] : 1945 72 From: Karthikeyan Whelan MD PCP: Antonia Bhakta MD, Chi Status: DEP ER - ER Visit Summary Date of Service: 05/06/18 Chief Complaint: Right elbow pain History of Present Illness: The patient is a 72 M presenting for evaluation secondary to right elbow pain. Patient reports that about 2 weeks ago he suffered a fall where he caught himself on his elbows. He was seen and had x-rays that were found to be negative. Patient reports that over the course of the last day or so he has had increased swelling and pain in that elbow with some leaking from the wound. He denies any constitutional symptoms such as fever although he does state that his right arm feels somewhat warm. Physical Examination: Physical exam unremarkable other than examination of right upper extremity. Patient has evidence of psoriasis plaques all over his arm. He has a small open wound over his olecranon bursa with some swelling and warmth in that area. Erythema is difficult to discern secondary to the patient's skin color. No short arc pain. There is some mild clear yellow drainage coming from the wound. Test Results: None indicated Emergency Department Course and Treatment: Patient presented secondary to pain swelling and drainage. Physical exam seems consistent with septic olecranon bursitis. He does not have evidence of septic elbow. Patient will be placed on Bactrim, and be given follow-up with orthopedics. Disposition: Discharge Impression: 1. Right elbow septic olecranon bursitis This note was generated with [employer] dictation software. It may contain incorrect words, spelling, and punctuation that were not noted in review of the chart prior to signing ED Disposition - Plan for ED Patient: Disposition: Home or Assisted Living Chief Complaint: Wound Diagnosis: Olecranon bursitis of right elbow Instructions: ED Bursitis Elbow Olecranon Prescriptions: Smz/Tmp Ds [Bactrim Ds] 1 tab PO BID #20 tab Referrals: Jemima Kelsey, [STAFF PHYSICIAN] - As soon as possible What to do if you have Problems For any increased pain, shortness of breath, bleeding, nausea or vomiting, chest pain, or any unexpected problems, contact your Primary Care Provider. Call [facility] ([phone]) or report to the closest Emergency Room. Call 911 if necessary. 05/06/18 4668 <Electronically signed by Karthikeyan Whelan MD> Date Karthikeyan Whelan MD Cosigner Signature (If Indicated): Date CC: Antonia Bhakta MD CBC W/DIFF, AUTOMATED Collected: 04/24/2018 Status: F Source: BON 1:51 PM [facility] REPOSITORY TYPE CODE TESTS RESULT OUT [...] Lymph 1.02 Performed By: #### L100.0100 #### [facility] [address] [place], [address] BASIC METABOLIC Collected: 04/24/2018 Status: F Source: [place] PROFILE ([facility]) 1:51 PM [facility] REPOSITORY TYPE CODE TESTS RESULT OUT [...] GAP 6 Performed By: #### L500.2500 #### [facility] [address] [place], [address] ELBOW MIN 3 VIEWS Observed: 04/24/2018 Status: F Source: [place] 11:54 AM [facility] REPOSITORY [facility] Imaging Services [address] [place] [address] Elbow min 3 Views MR#: [id number] Acct: [id number] Name: BALJINDER PACHECO Rep #: [id number] : 1945 M 72 From: Tobias Paredes MD PCP: Philomena FLETCHER,Antonia Crespo Status: REG CLI Study: Elbow min 3 Views Date of Exam: 04/24/18 Exam# [id number] Ordering Dr: Antonia Bhakta MD STUDY: X-RAY - RIGHT ELBOW [...] 12:25 EST , Service support , CC: Antonia Bhakta MD Manufacturing Maintenance Mechanic: Signed ECHOCARDIOGRAM COMPLETE Observed: 04/22/2018 Status: F Source: [place] 12:17 PM [facility] REPOSITORY [facility] Cardiovascular Services [address] [place] [address] Echo Complete 04/22/18 0827 MR#: [id number] Acct: [id number] Name: BALJINDER PACHECO Rep #: [id number] : 1945 72 From: Munir Schultz MD Attending Dr: Marion FLETCHER,Munir Status: REG CLI Ordering Dr: Munir Schultz MD Date: 04/22/18 Location: [facility] Sex: M AA Admitted: Reason For Study: [...] E' Deepak: 6.3 cm/sec MV A max deepak: 91.4 cm/sec E/E' lat: 9.2 E/E' med: [...] dysfunction. Ordering Physician: Munir Schultz Referring Physician: Antonia Bhakta Chi Performed By: Iraida Madera RDCS 04/22/181215 Date Munir Schultz MD CC: Munir Schultz MD; Antonia Bhakta MD Date Dictated: 04/22/18826 Date Transcribed: 04/22/181215 Manufacturing Maintenance Mechanic: Signed STRESS REPORT Observed: 04/22/2018 Status: F Source: [place] 8:32 AM [facility] REPOSITORY [facility] Cardiovascular Services [address] [place] [address] MR#: [id number] Acct: [id number] Name: BALJINDER PACHECO Rep #: [id number] : 1945 72 From: Munir Schultz MD Primary Care: Antonia Bhakta MD, Chi Status: REG CLI Ordering [...] Munir Schultz MD CC: Munir Schultz MD; Antonia Bhakta MD Date Dictated: 04/22/18827 Date Transcribed: 04/22/18827 Manufacturing Maintenance Mechanic: [place] Signed PSA,TOTAL- DIAGNOSTIC Collected: 04/17/2018 Status: F Source: BON 10:22 AM [facility] REPOSITORY TYPE CODE TESTS RESULT OUT OF REFERENCE UNITS RANGE LAB L501.9940 0.0-4.0 ng/mL PSA, High DIAGNOSTIC 4.09 Result Comment: This test was performed using the TPSA assay method for the [employer] chemistry system. Values obtained with different assay methods cannot be used interchangably. When changing PSA assays in the course of monitoring a patient, additional sequential testing should be carried out to confirm baseline values. Performed By: #### L501.9940 #### [facility] [address] [place], [address] CARDIOLOGY VISIT Observed: 04/17/2018 Status: F Source: [place] REPORT 10:00 AM [facility] REPOSITORY [facility] [address] [place] [address] OFFICE VISIT Date of Service: 04/17/18 MR#: [id number] Acct: [id number] Name: BALJINDER PACHECO Rep #: [id number] : 1945 Provider: Munir Schultz MD Age/Sex: 72/M Location: [facility] Status: Signed HPI HPI Chief Complaint: Initial visit Details: BALJINDER PACHECO, is a 72 M who presents to [...] mg PO BID 04/17/18 [History Confirmed 04/17/18] [facility] Medical History Right bundle branch block [...] made. 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) Coding Level of Care Code Off vis,new,level 4 Diagnoses Right bundle branch block I45.10 Chest pain R07.9 Coding Level of Care Code Off vis,new,level 4 Diagnoses Right bundle branch block I45.10 Chest pain R07.9 04/17/18 1000 <Electronically signed by Munir Schultz MD> Date Munir Schultz MD Cosigner Signature: Date (if applicable) CC: Antonia Bhakta MD CBC W/DIFF, AUTOMATED Collected: 04/09/2018 Status: F Source: [place] 10:44 AM [facility] REPOSITORY TYPE CODE TESTS RESULT OUT [...] 1.09 Performed By: #### L100.0100, L101.9900 #### [facility] [address] [place], [address] ERYTHROCYTE SED RATE Collected: 04/09/2018 Status: F Source: [place] 10:44 AM [facility] REPOSITORY TYPE CODE TESTS RESULT OUT OF RANGE REFERENCE UNITS LAB L102.0000 0-20 mm/hr Normal SED RATE 8 Performed By: #### L100.0100, L101.9900 #### [facility] [address] [place], [address] BASIC METABOLIC Collected: 04/09/2018 Status: F Source: [place] PROFILE (BMP) 10:44 AM [facility] REPOSITORY Order Comment: 'TROP' Serial specimen #1, [...] By: #### L500.2500, L501.3620, L501.4010, L501.6710 #### [facility] [address] [place], [address] CPK TOTAL, CREATINE Collected: 04/09/2018 Status: F Source: [place] KINASE 10:44 AM [facility] REPOSITORY Order Comment: 'TROP' Serial specimen #1, #2, #3, or #4: 1 TYPE CODE TESTS RESULT OUT OF RANGE REFERENCE UNITS LAB L501.3620 39-308 U/L Normal CPK TOTAL 281 Performed By: #### L500.2500, L501.3620, L501.4010, L501.6710 #### [facility] [address] [place], [address] TROPONIN-I Collected: 04/09/2018 Status: F Source: [place] 10:44 AM [facility] REPOSITORY Order Comment: 'TROP' Serial specimen #1, #2, #3, or #4: 1 TYPE CODE TESTS RESULT OUT OF RANGE REFERENCE UNITS LAB L501.4010 <0.045 ng/mL Normal < 0.015 TROPONIN-I Result Comment: TROPONIN-I EXPECTED VALUES <0.045 Negative 0.045 - 0.590 Consistent with Cardiac Damage > OR = 0.600 Critical Value Not every elevated troponin is indicative of [place]. These values should be used with clinical judgement in examining the patient's clinical picture for diagnosis. To establish a diagnosis of [place] versus myocardial injury, there must be a demonstrated rise and/or fall in the troponin values, in addition to ischemic symptoms, EKG changes, new regional wall motion abnormality, and/or angiographical evidence. PLEASE NOTE: REFERENCE RANGES EDITED 17 Performed By: #### L500.2500, L501.3620, L501.4010, L501.6710 #### [facility] [address] [place], [address] CRP Collected: 04/09/2018 Status: F Source: [place] 10:44 AM [facility] REPOSITORY Order Comment: 'TROP' Serial specimen #1, [...] By: #### L500.2500, L501.3620, L501.4010, L501.6710 #### [facility] [address] [place], [place], [address] MYOGLOBIN, SERUM Collected: 04/09/2018 Status: F Source: [place] 10:44 AM [facility] REPOSITORY TYPE CODE TESTS RESULT OUT OF RANGE REFERENCE UNITS LAB L3600.5100 28-72 ng/mL High 195 Myoglobin, Ser Result Comment: Performed at: [address] [id number] Town Administrator: Angel Pang PhD, Phone: [phone] Performed By: #### L3600.5100 #### [facility] (refer to report for specific site) refer to report for address and phone number CBC W/DIFF, AUTOMATED Collected: 01/28/2018 Status: F Source: [place] 1:24 PM [facility] REPOSITORY TYPE CODE TESTS RESULT OUT [...] Lymph 1.43 Performed By: #### L100.0100 #### [facility] [address] [facility] [place], [place], [address] VITAMIN D,25 HYDROXY Collected: 01/28/2018 Status: F Source: [place] 1:24 PM [facility] REPOSITORY TYPE CODE TESTS RESULT OUT OF REFERENCE UNITS RANGE LAB L506.1000 29.95-100.01 ng/mL Low Vitamin D 17.1 25-OH Result Comment: Vitamin D 25(OH) Status Range Deficiency <20 ng/mL (50nmol/L) Insuffciency 20 - 30 ng/mL (50 - 75 nmol/L) Sufficiency 30 - 100 ng/mL (75 - 250 nmol/L) Toxicity >100 ng/mL (>250 nmol/L) Performed By: #### L506.1000, L509.3000 #### [facility] [address] [place], [place], [address] TESTOSTERONE, SERUM TOTAL Collected: 01/28/2018 Status: F Source: [place] 1:24 PM [facility] REPOSITORY TYPE CODE TESTS RESULT OUT [...] 05/02/2017 Performed By: #### L506.1000, L509.3000 #### [facility] [address] [place], [address] COMPREHENSIVE METABOLIC Collected: 01/28/2018 Status: F Source: [place] WALDROP 1:24 PM [facility] REPOSITORY TYPE CODE TESTS RESULT OUT [...] 8 Performed By: #### L500.4050, L501.9520 #### [facility] [address] [place], [address] THYROID STIM HORMONE Collected: 01/28/2018 Status: F Source: [place] (TSH) 1:24 PM [facility] REPOSITORY TYPE CODE TESTS RESULT OUT OF RANGE REFERENCE UNITS LAB L501.9520 0.358-3.74 uIU/mL Normal TSH 1.02 Performed By: #### L500.4050, L501.9520 #### [facility] [address] [facility] [place], [address] PSA,TOTAL- DIAGNOSTIC Collected: 10/24/2017 Status: F Source: BON 2:35 PM [facility] REPOSITORY TYPE CODE TESTS RESULT OUT OF REFERENCE UNITS RANGE LAB L501.9940 0.0-4.0 ng/mL PSA, High DIAGNOSTIC 4.47 Result Comment: This test was performed using the TPSA assay method for the [employer] chemistry system. Values obtained with different assay methods cannot be used interchangably. When changing PSA assays in the course of monitoring a patient, additional sequential testing should be carried out to confirm baseline values. Performed By: #### L501.9940 #### [facility] [address] [place], [place], [address] CBC W/DIFF, AUTOMATED Collected: 07/25/2017 Status: F Source: BON 9:34 AM [facility] REPOSITORY TYPE CODE TESTS RESULT OUT [...] Lymph 1.24 Performed By: #### L100.0100 #### [facility] [address] [place] [address], [address] VITAMIN D,25 HYDROXY Collected: 07/25/2017 Status: F Source: [place] 9:34 [facility] REPOSITORY TYPE CODE TESTS RESULT OUT OF REFERENCE UNITS RANGE LAB L506.1000 29.95-100.01 ng/mL Low Vitamin D 24.4 25-OH Result Comment: Vitamin D 25(OH) Status Range Deficiency <20 ng/mL (50nmol/L) Insuffciency 20 - 30 ng/mL (50 - 75 nmol/L) Sufficiency 30 - 100 ng/mL (75 - 250 nmol/L) Toxicity >100 ng/mL (>250 nmol/L) Performed By: #### L506.1000 #### [facility] [address] [place], [place], [address] COMPREHENSIVE METABOLIC Collected: 07/25/2017 Status: F Source: [facility] 9:34 AM [facility] REPOSITORY TYPE CODE TESTS RESULT OUT [...] 6 Performed By: #### L500.4050, L501.9520 #### [facility] [address] [place], [address] THYROID STIM HORMONE Collected: 07/25/2017 Status: F Source: [place] (TSH) 9:34 AM [facility] REPOSITORY TYPE CODE TESTS RESULT OUT OF RANGE REFERENCE UNITS LAB L501.9520 0.358-3.74 uIU/mL Normal TSH 0.79 Performed By: #### L500.4050, L501.9520 #### [facility] [address] [place], [address] ALLERGIES ALLERGIES DATE TYPE / CODE NAME / CODE REACTION SEVERITY SOURCE 05/22/2018 Drug No Known Unknown [facility] Allergy/4160 Allergies/F00 [facility] [address](SNOMED 5745450(RXNOR Repository CT) M) ENCOUNTERS ENCOUNTERS ADMIT/DISCHARGE ACCOUNT NUMBER ADMITTING ENCOUNTER LOCATION SOURCE CLASS 05/22/2018 [id number] Emergency [address] [place] [address] ERRoom: System [id number]: Repository [id number] 05/22/2018/05/22/19 [id number] Emergency [address] ding:ED Repository 05/16/2018/05/16/19 [id number] Ambulatory BMSBuilding: [place] 19 BMS.[facility] Repository 05/09/2018/05/09/20 [id number] Emergency [address] ding:ED Repository 05/06/2018/05/06/20 [id number] Emergency [address] ding:ED Repository 04/30/2018 [id number] Ambulatory [facility] ding:PSN Repository 04/30/2018 [id number] Ambulatory BMSBuilding: [place] [facility] Repository 04/24/2018 [id number] Ambulatory [facility] ding:RAD Repository 04/22/2018 [id number] Ambulatory BMSBuilding: [place] BMS..[facility] Repository 04/22/2018 [id number] Ambulatory [facility] ding:[facility]S Repository 04/17/2018 [id number] Ambulatory [facility] ding:LAB Repository 04/17/2018/04/17/20 [id number] Ambulatory BMSBuilding: [place] [facility] BMS.[facility] Repository 04/09/2018 [id number] Ambulatory [facility] ding:POLAB3 Repository 01/28/2018 [id number] Ambulatory [facility] ding:POLAB3 Repository 10/24/2017 [id number] Ambulatory [facility] ding:LAB Repository 07/25/2017 [id number] [facility] ding:POLAB3 Repository PAYERS PAYERS ENCOUNTER GUARANTOR PAYER SUBSCRIBER SOURCE 05/22/2018 Baljinder Chambers Primary Baljinder Chambers [facility] [employer] SmithDOB: Insurance:[facility]arePolNewark HospitalDOB: System [id number] cy Number: Effective [id number] [address]ository [address] Date: [address] [place] [address]Fmy: () 05/22/2018 Secondary Baljinder Chambers [facility] [employer] Insurance:United SmithDOB: System [facility] [id number] Repository Number: Effective Date: 05/22/2018 BALJINDER Chambers Primary BALJINDER [place] [id number] Insurance:UNITED HLTH SMITHDOB: Community [address] [id number] Number: Repository [address]Tvj: 330 [id number] [phone] (HP) Date:7410-17-93YA [address], [place] [address]HG: 05/22/2018 Secondary NOT GIVENUNK [place] Insurance:SELF PAY [facility] Number: Effective Repository Date:2018-05-22 05/16/2018 BALJINDER Chambers Primary BALJINDER [place] [id number] Insurance:UNITED TH SMITHDOB: Community [address] [id number] Number: Repository [id number]: 330 [id number] [phone] () Date:[id number] [address], [place] [address]II: 05/16/2018 Secondary NOT GIVENUNK [place] Insurance:SELF PAY [facility]: Effective Repository Date:2018-05-16 05/09/2018 BALJINDER Chambers Primary BALJINDER [id number] Insurance:UNITED HLTH SMITHDOB: Community [address] [id number] [id number] Number: Repository [address]Vnn: 330 [id number] [phone] () Date:0645-13-07IO [facility] [id number] [place] [address]TR: 05/09/2018 Secondary NOT GIVENUNK [place] Insurance:SELF PAY [facility] Number: Effective Repository Date:2018-05-09 05/06/2018 BALJINDER Chambers Primary BALJINDER [id number] Insurance:UNITED HLTH SMITHDOB: Community [address] [id number] [place] Number: Repository [id number]: 330 [id number] [phone] () Date:[id number] [facility] [address]RS[place], [place] [address]TV: 05/06/2018 Secondary NOT GIVENUNK [place] Insurance:SELF PAY [facility] Number: Effective Repository Date:2018-05-06 04/30/2018 BALJINDER Chambers Primary BALJINDER Jimenez [id number] Insurance:[employer] HLTH SMITHDOB: [facility] [address] [id number] [place] Number: Repository [address]Nxo: 330 [id number] [phone] () Date:1673-56-46II [facility] [place]497[place]GWJNH, [place] [address]JH: 04/30/2018 Secondary NOT GIVENUNK Gonzales Insurance:SELF PAY [facility] Effective Rep[facility] Date:2018-04-30 04/30/2018 BALJINDER Chambers Primary BALJINDER Jimenez [id number] Insurance:[employer] HLTH SMITHDOB: [address] [id number] [id number], [place] Number: Repository [address]Qas: 330 [id number] [phone] (HP) Date:4960-03-60[address] [place] [address]RC: 04/30/2018 Secondary NOT GIVENUNK Bon Insurance:SELF PAY [facility] Effective Repository Date:2018-04-30 04/24/2018 BALJINDER Chambers Primary BALJINDER [id number] Insurance:[employer] HLTH SMITHDOB: [address] [id number] [id number], [place] Number: Repository [address]Jxk: 330 [id number] [phone] (HP) Date:3836-84-81LV [address] [address]UR: 04/24/2018 Secondary NOT GIVENUNK Gonzales Insurance:SELF PAY [facility] Number: Effective Repository Date:2018-04-24 04/22/2018 BALJINDER Chambers Primary BALJINDER [id number] Insurance:[employer] HL[employer] SMITHDOB: [facility] [address] [id number], [place] Number: Repository [address]Ftc: 330 [id number] [phone] (HP) Date:8737-78-25NG [address] [address]TG: 04/22/2018 Secondary NOT GIVENUNK Bon Insurance:SELF PAY [facility]: Effective Repository Date:2018-04-22 04/22/2018 BALJINDER W Primary BALJINDER [id number] Insurance:[employer] HL[employer] SMITHDOB: [address] [id number] [id number], [place] Number: Repository [id number]: 330 [id number] [phone] (HP) Date:2967-20-01[address]MVER[address], [place] [address]PL: 04/22/2018 Secondary NOT GIVENUNK Gonzales Insurance:SELF PAY [facility] Number: Effective Repository Date:2018-04-17 04/17/2018 BALJINDER Chambers Primary BALJINDER [id number] Insurance:[employer] HL[employer] SMITHDOB: [address] [id number] [id number] [place] Number: Repository [address]Eqa: 330 [id number] [phone] () Date:2665-40-22EK [address] [address]NU: 04/17/2018 Secondary NOT GIVENUNK Gonzales Insurance:SELF PAY [facility]: Effective Repository Date:2018-04-17 04/17/2018 BALJINDER Chambers Primary BALJINDER [id number] Insurance:[employer] HL[employer] SMITHDOB: [address] [id number] [place] Number: Repository [address]Fap: 330 [id number] [phone] () Date:8918-35-45TT [address] [address]KE: 04/17/2018 Secondary NOT GIVENUNK Bon Insurance:SELF PAY [facility] Number: Effective Repository Date:2018-04-17 04/09/2018 BALJINDER Chambers Primary BALJINDER Jimenez [id number] Insurance:[employer] HL[employer] SMITHDOB: [address] [id number] [id number] Number: Repository [address]Tct: 330 [id number] [phone] () Date:7511-10-29AX [facility] [id number] [place] [address]UH: 04/09/2018 Secondary NOT GIVENUNK Bon Insurance:SELF PAY [facility] Number: Effective Repository Date:2018-04-09 01/28/2018 BALJINDER Chambers Primary BALJINDER Jimenez [id number] Insurance:[employer] HL[employer] SMITHDOB: [address] [id number] [id number] Number: Repository [address]Zbz: 330 [id number] [phone] (HP) Date:3218-77-59AW [address]CTPDLHR, [place] [address]KV: 01/28/2018 Secondary NOT GIVENUNK Gonzales Insurance:SELF PAY [facility] Number: Effective Repository Date:2018-01-28 10/24/2017 BALJINDER W Primary BALJINDER [id number] [facility] [address] [id number] Number: Repository [address]Psb: 330 [id number] [phone] () Date:2308-87-79MM [address]MVUQDNZ, [place] [address]PG: 10/24/2017 Secondary NOT GIVENUNK Gonzales Insurance:SELF PAY [facility] Number: Effective Repository Date:2017-10-24 07/25/2017 BALJINDER Primary Insurance:[facility] BALJINDER [id number] [facility] [address] Number: [id number] [id number] Repository [address]Blz: (330) Date:5533-53-18BP [phone] () [address], [place] [address]HL: 07/25/2017 Secondary NOT GIVENUNK Bon Insurance:SELF PAY [facility] Number: Effective Repository Date:2017-07-25
== END ==
PROVIDERS: Family Provider Family Medicine Geriatric Medicine; PCP Family Medicine Geriatric Medicine; Referring Provider Family Medicine Geriatric Medicine; Visit Provider Family Medicine Geriatric Medicine
DX: M25.521 Pain in right elbow (principal); L40.8 Other psoriasis
CPT/HCPCS: 36415; 73080; 80048; 85025

== ENCOUNTER → 2018-04-30 13:01 | Outpatient (CLI) | payer OTHER, SELFPAY ==
[2018-04-17 08:16] VITALS: BMI 27.6
== END ==
PROVIDERS: Family Provider Family Medicine Geriatric Medicine; PCP Family Medicine Geriatric Medicine; Referring Provider Internal Medicine Cardiovascular Disease; Visit Provider Internal Medicine Cardiovascular Disease
DX: I45.10 Unspecified right bundle-branch block (principal); R07.9 Chest pain, unspecified; E78.5 Hyperlipidemia, unspecified; W19.XXXA Unspecified fall, initial encounter
CPT/HCPCS: 93225; 93226

== ENCOUNTER 2018-05-06 12:56 | Emergency (ER) | payer OTHER, SELFPAY ==
[2018-04-17 08:16] VITALS: BMI 27.6
[2018-05-06 12:57] VITALS: BP 137/70; PULSE 63; RESP 17; TEMP 36.6; O2SAT 99; BMI 27.7
--- NOTE | 2018-05-06 13:35 | ED.VISSUMM ---
- ER Visit Summary Date of Service: 05/06/18 Chief Complaint: Right elbow pain History of Present Illness: The patient is a 72 M presenting for evaluation secondary to right elbow pain. Patient reports that about 2 weeks ago he suffered a fall where he caught himself on his elbows. He was seen and had x-rays that were found to be negative. Patient reports that over the course of the last day or so he has had increased swelling and pain in that elbow with some leaking from the wound. He denies any constitutional symptoms such as fever although he does state that his right arm feels somewhat warm. Physical Examination: Physical exam unremarkable other than examination of right upper extremity. Patient has evidence of psoriasis plaques all over his arm. He has a small open wound over his olecranon bursa with some swelling and warmth in that area. Erythema is difficult to discern secondary to the patient's skin color. No short arc pain. There is some mild clear yellow drainage coming from the wound. Test Results: None indicated Emergency Department Course and Treatment: Patient presented secondary to pain swelling and drainage. Physical exam seems consistent with septic olecranon bursitis. He does not have evidence of septic elbow. Patient will be placed on Bactrim, and be given follow-up with orthopedics. Disposition: Discharge Impression: 1. Right elbow septic olecranon bursitis This note was generated with [employer] dictation software. It may contain incorrect words, spelling, and punctuation that were not noted in review of the chart prior to signing ED Disposition - Plan for ED Patient: Disposition: Home or Assisted Living Chief Complaint: Wound Diagnosis: Olecranon bursitis of right elbow Instructions: ED Bursitis Elbow Olecranon Prescriptions: Smz/Tmp Ds [Bactrim Ds] 1 tab PO BID #20 tab Referrals: Jemima Kelsey DO [STAFF PHYSICIAN] - As soon as possible
--- NOTE | 2018-05-06 13:39 | ED.DCSUM_ITS ---
- ER Visit Summary Date of Service: 05/06/18 Chief Complaint: Right elbow pain History of Present Illness: The patient is a 72 M presenting for evaluation secondary to right elbow pain. Patient reports that about 2 weeks ago he suffered a fall where he caught himself on his elbows. He was seen and had x-r ays that were found to be negative. Patient reports that over the course of the last day or so he has had increased swelling and pain in that elbow with some leaking from the wound. He denies any constitutional symptoms such as fever although he does state that his right arm feels somewhat warm. Physical Examination: Physical exam unremarkable other than examination of right upper extremity. Patient has evidence of psoriasis plaques all over his arm. He has a small open wound over his olecranon bursa with some swelling and warmth in that area. Erythema is difficult to discern secondary to the patient's skin color. No short arc pain. There is some mild clear yellow drainage coming from the wound. Test Results: None indicated Emergency Department Course and Treatment: Patient presented secondary to pain swelling and drainage. Physical exam seems consistent with septic olecranon bursitis. He does not have evidence of septic elbow. Patient will be placed on Bactrim, and be given follow-up with orthopedics. Disposition: Discharge Impression: 1. Right elbow septic olecranon bursitis This note was generated with [employer] dictation software. It may contain incorrect words, spelling, and punctuation that were not noted in review of the chart prio r to signing ED Disposition - Plan for ED Patient: Disposition: Home or Assisted Living Chief Complaint: Wound Diagnosis: Olecranon bursitis of right elbow Instructions: ED Bursitis Elbow Olecranon Prescriptions: Smz/Tmp Ds [Bactrim Ds] 1 tab PO BID #20 tab Referrals: Jemima Kelsey DO [STAFF PHYSICIAN] - As soon as possible
[2018-05-06] MEDS: Smz/Tmp Ds Tablet 1 TABLET PO (14:21)
[2018-05-06 14:29] VITALS: PULSE 76; RESP 14; TEMP 36.1; O2SAT 95
== END 2018-05-06 14:33 | disposition home or self-care (01) ==
PROVIDERS: Emergency Provider Emergency Medicine; Family Provider Family Medicine Geriatric Medicine; PCP Family Medicine Geriatric Medicine
DX: M71.121 Other infective bursitis, right elbow (principal); L40.9 Psoriasis, unspecified; E78.00 Pure hypercholesterolemia, unspecified; N40.0 Benign prostatic hyperplasia without lower urinary tract symptoms; Z79.82 Long term (current) use of aspirin; Z79.899 Other long term (current) drug therapy
CPT/HCPCS: 99283

== ENCOUNTER 2018-05-09 10:50 | Emergency (ER) | payer OTHER, SELFPAY ==
[2018-05-09 10:51] VITALS: BP 132/72; PULSE 72; RESP 16; TEMP 36.6; O2SAT 98; BMI 27.2
[2018-05-09 13:18] VITALS: PULSE 69; RESP 17; TEMP 36.6; O2SAT 95
[2018-05-09 13:19] VITALS: PULSE 55; RESP 18; O2SAT 98
--- NOTE | 2018-05-09 13:47 | ED.DCSUM_ITS ---
- ER Visit Summary Date of Service: 05/09/18 Chief Complaint: Cellulitis right elbow History of Present Illness: The patient is a 73 M who is right-hand dominant presents because of cellulitis right elbow. He was seen on the 24th status post trauma. X-ray of the elbow was negative. He was diagnosed with septic olecranon bursitis. He denies fever, chills or night sweats. He does report pain over the elbow. He does admit that he leans on his elbows. He denies paresthesia, anesthesia motor weakness. He has history of psoriasis. He is on no immunosuppressive meds to treat his psoriasis. There is no history of psoriatic arthritis. He denies history of gout or pseudogout. He was referred to orthopedics for outpatient follow-up and placed on antibiotics. Physical Examination: Vital signs noted and blood pressure slightly elevated 137/72. He is not febrile. There is evidence of olecranon bursitis right. There is no erythema warmth induration. There is an eschar noted. There is no drainage. Patient states there was drainage this morning. Based on description drainage is serous. Axillary, median, radial and ulnar function intact. There is no pain the patient over the lateral medial epicondyle. There is no pain to palpation over the radial head with supination pronation. Test Results: X-ray that was obtained proximally week ago was reviewed and there is no acute process and no evidence of foreign body. Emergency Department Course and Treatment: Needle aspirate was undertaken and findings are consistent with traumatic bursitis. Treatment Plan: Follow-up with orthopedics do not believe hand elbows and symptomatic care Disposition: Discharged home in stable condition Impression: Traumatic olecranon bursitis This note was generated with [employer] dictation software. It may contain incorrect words, spelling, and punctuation that were not noted in review of the chart prior to signing ED Disposition - Plan for ED Patient: Disposition: Home or Assisted Living Chief Complaint: Cellulitis Instructions: ED Bursitis Elbow Olecranon Referrals: Aashish Bhakta Chi, MD [Primary Care Provider] - Jemima Kelsey DO [STAFF PHYSICIAN] - Keep Daya appointment
--- NOTE | 2018-05-09 13:54 | ED.DCSUM_ITS ---
- ER Visit Summary Date of Service: 05/09/18 Chief Complaint: [] History of Present Illness: The patient is a 73 M [] Physical Examination: [] Test Results: [] Emergency Department Course and Treatment: [] Treatment Plan: [] Disposition: [] Impression: [] This note was generated with [employer] dictation software. It may contain incorrect words, spelling, and punctuation that were not noted in review of the chart prior to signing ED Disposition - Plan for ED Patient: Disposition: Home or Assisted Living Chief Complaint: Cellulitis Instructions: ED Bursitis Elbow Olecranon Prescriptions: Hydrocodone Bitart/Apap 5-325 [[place] 5MG-325MG] 1 tab PO Q6H PRN PRN 3 Days #10 tab PRN Reason: Pain Referrals: Jemima Kelsey DO [STAFF PHYSICIAN] - Keep Daya appointment Aashish Bhakta Chi, MD [Primary Care Provider] -
[2018-05-09 13:58] VITALS: PULSE 62; RESP 15; O2SAT 98
--- NOTE | 2018-05-09 18:13 | ED.RN ---
Pt's called inquiring why the pt wasn't admitted. I returned a call to her but there was no answer. No message was left.
== END 2018-05-09 13:59 | disposition home or self-care (01) ==
PROVIDERS: Emergency Provider Emergency Medicine; Family Provider Family Medicine Geriatric Medicine; PCP Family Medicine Geriatric Medicine
DX: M70.21 Olecranon bursitis, right elbow (principal); Y93.9 Activity, unspecified; L40.9 Psoriasis, unspecified; E78.00 Pure hypercholesterolemia, unspecified; N40.0 Benign prostatic hyperplasia without lower urinary tract symptoms; Z79.899 Other long term (current) drug therapy
CPT/HCPCS: 87070; 87075; 87205; 99282

== ENCOUNTER 2018-05-22 05:00 | Emergency (ER) | payer OTHER, SELFPAY ==
[2018-05-16 13:15] VITALS: BMI 27.2
[2018-05-22] VITALS (17 sets, daily range): BP systolic 98–133; BP diastolic 57–84; PULSE 71–136; RESP 18–28; TEMP 37.5–38.3; O2SAT 92–97; BMI 28.0
--- NOTE | 2018-05-22 05:16 | RAD_ITS ---
HISTORY: FEVERDENIES ANY SOB, COUGH OR PAIN EXAM:XR Chest 2 Views: COMPARISON: 05/07/2017 FINDINGS: EKG leads in place. Shallow inspiration with hypoaeration of the lung bases, more so on the left. Normal heart size. No acute infiltrate seen. No vascular congestion or pleural effusion. No pneumothorax. IMPRESSION: No acute cardiopulmonary disease. at 0648 Reported and signed by: Chauncey Villareal MD Electronically Signed: Chauncey Villareal, at 6:47 EST Tel , Service support , RAD/Chest PA and Lateral
--- NOTE | 2018-05-22 05:16 | EKG12_ITS ---
Test Reason : NAUSEA/VOMITING Blood Pressure : / mmHG Vent. Rate : 123 BPM Atrial Rate : 123 BPM P-R Int : 132 ms QRS Dur : 120 ms QT Int : 336 ms P-R-T Axes : 054 -14 036 degrees QTc Int : 481 ms Sinus tachycardia Right bundle branch block Septal infarct , age undetermined Abnormal ECG Confirmed by SUSAN FLETCHER, MAKENNA ([id number]), continuity editor BISHOP REES ([id number]) on 05/27/2018 10:02:17 AM Referred By: SUSAN Confirmed By:MAKENNA DAVIS MD
--- NOTE | 2018-05-22 05:18 | RAD_ITS ---
HISTORY: FELL ABOUT A MONTH AGOSTILL HAVING PAIN IN RT ELBOW COMPARISON: 04/24/2018 FINDINGS: XR right Elbow Min 3 Views: No dislocation or acute fracture. Joint spaces are preserved. The distal humeral fat pads are not displaced. Corticated bony spur at the olecranon region, unchanged. Olecranon soft tissue swelling is increased compared to previous which may reflect bursitis. In addition, the posterior olecranon shows poor definition with apparent erosion-bone loss at the posterior cortex. Septic type bursitis with osteomyelitis is possible. RAD/Elbow min 3 Views IMPRESSION: 1. The right olecranon region shows increased soft tissue swelling with apparent bone erosion-bone loss at the cortical margin potentially representing septic bursitis with osteomyelitis. 2. Further correlation could be obtained with 3 phase bone scan. Alternatively, bursal needle aspiration could be performed. at 0638 Reported and signed by: Chauncey Villareal MD Electronically Signed: Chauncey Villareal, at 6:37 EST Tel , Service support ,
--- NOTE | 2018-05-22 05:20 | ED.DCSUM_ITS ---
- ER Visit Summary Date of Service: 05/22/18 Chief Complaint: Shaking History of Present Illness: The patient is a 73 M who presents with Reiger's. He has been having chills for the past week. They have checked temperature at home but he has not had a fever. Tonight he woke up with chills and felt cold a nd just could not quit shaking. EMS was called. He is found to be tachycardic and febrile. He also developed nausea and vomiting this morning. He has had 2 episodes of nonbloody nonbilious emesis. He had a cystoscopy 2 days ago. He has had some dysuria urgency and frequency since that time. He also recently had a right traumatic olecranon bursitis as well as possible septic bursitis. He did have fluid sent recently which showed 3+ gram-positive cocci but culture was negative. He is still on Bactrim for this. He denies any chest pain shortness of breath cough congestion rhinorrhea sore throat abdominal pain diarrhea. No sick contacts Physical Examination: Temperature 100.9 heart rate 136 blood pressure 124/67 pulse ox 93% on room air respiratory rate 18 Patient is markedly diaphoretic Moist mucous membranes Heart is regular rhythm tachycardia Lungs are clear without rales rhonchi wheezes Abdomen soft nontender and nondistended Patient does have swelling over the right elbow consistent with olecranon bursitis and mild tenderness he has good range of motion of the elbow without pain I do not appreciate overlying erythema it is not hot to the touch Alert no focal or lateralizing neurological deficits Test Results: EKG shows sinus rhythm at a rate of 123 with a right bundle branch block. Labs notable for CO2 of 18.0, creatinine 1.66, lactic acid 5.3. Troponin is negative. Urinalysis shows 10-25 WBCs and 3+ bacteria. Blood and urine cultures were sent. Chest x-ray shows no acute disease. Elbow x-ray shows increased soft tissue swelling and bony erosion concerning for septic bursitis with osteomyelitis. Emergency Department Course and Treatment: Patient was treated with IV fluids and given Tylenol for fever. He was empirically treated with Zosyn and vancomycin early in the patient's course. Patient does meet criteria for septic shock. The orthopedic surgeon who has seen him previously, Dr. Kelsey is unavailable. There is only a physician quality control assistant covering who is only covering the office. I spoke to the orthopedic surgeon with the other group, Dr. Nima Nguyen who recommended transfer. I spoke to the catering administrative assistant at [facility] who thought that he may be okay for a monitored bed rather than the ICU and also wanted orthopedic input so the patient was transferred to the emergency department for consultations there. Treatment Plan: [] Disposition: Transfer Impression: Septic shock Right septic olecranon bursitis Osteomyelitis This note was generated with iPrint dictation software. It may contain incorrect words, spelling, and punctuation that were not noted in review of the chart prior to signing ED Disposition - Plan for ED Patient: Chief Complaint: Nausea/Vomiting Referrals: Aashish Bhakta Chi, MD [Primary Care Provider] -
[2018-05-22 05:28] LABS: Absolute Lymphocyte Count 0.63 X10^3/ul (0.83-4.51); Basophil# 0.01 X10^3/uL; Basophil% 0.2 % (0-1); Eosinophil# 0.07 X10^3/uL; Eosinophils% 1.5 % (0-5); Hematocrit 44.9 % (40-54); Hemoglobin 14.3 g/dl (13.0-16.5); Lymphocyte # 0.63 X10^3/ul (4.0); Lymphocyte % 13.2 % (19-41); Mean Corp Hgb Conc 31.8 g/gl (32-36); Mean Corpuscular Hgb 31.2 pg (27.0-32.0); Mean Corpuscular Volume 97.8 fL (80-94); Mean Platelet Vol. 9.8 fl (6.2-12.0); Monocyte# 0.09 X10^3/uL; Monocyte% 1.9 % (0-10); Neutrophil # 3.96 X10^3/uL (2.7-7.7); Platelet Count 158 K/mm3 (150-450); RBC Distribution Width CV 14.2 % (11.6-14.6); RBC Distribution Width SD 50.9 fl (35.1-43.9); Red Blood Count 4.59 M/mm3 (4.6-6.2); White Blood Count 4.8 K/mm3 (4.4-11.0)
[2018-05-22 05:31] LABS: POSITIVE COUNT NO; POSITIVE DIFFERENTIAL NO; POSITIVE MORPHOLOGY NO
[2018-05-22] MEDS: Acetaminophen 500 MG Tablet 1000 MG PO (05:31)
[2018-05-22] MEDS: 0.9% Normal Saline 1,000 ML 999 ML IV ×3 (05:31→06:22)
[2018-05-22 05:44] LABS: ALB/GLOB Ratio 0.9 RATIO (0.9-2.4); AST(SGOT) 20 U/L (15-37); Alanine Aminotransfer ALT/SGPT 29 U/L (16-61); Albumin, Serum 3.3 g/dL (3.2-5.0); Alkaline Phosphatase 89 U/L (45-117); Anion Gap 13 (5-15); BUN 17 mg/dL (7-18); BUN/Creat Ratio 10.2 RATIO (10-20); Calcium,Total 8.6 mg/dL (8.5-10.1); Chloride 109 mmol/L (98-107); Creatinine, Serum 1.66 mg/dL (0.70-1.30); EST Glomerular Filtration Rate 43 mL/min (>60); Est Glom Filt Rate - Afr Amer 52 mL/min (>60); Globulin 3.6 g/dL (2.2-4.2); Glucose 135 mg/dL (74-106); Lipase 106 U/L (73-393); Potassium 4.4 mmol/L (3.5-5.1); Protein, Total 6.9 g/dL (6.4-8.2); Sodium Level 140 mmol/L (136-145)
[2018-05-22 05:50] LABS: Partial Thromboplast Time 28.4 Seconds (24.1-36.2); Prothrombin Time (Protime)PT. 13.2 SECONDS (11.7-14.9)
[2018-05-22 05:58] LABS: Lactic Acid 5.3 mmol/L (0.4-2.0)
--- NOTE | 2018-05-22 06:04 | ED.RN ---
CRITICAL LACTIC ACID OF 5.3, MD AWARE.
[2018-05-22 06:06] LABS: Mucous, Urine 0 SEEN /hpf (<or=2+); Red Blood Cells-Urine 0 SEEN /hpf (0-5); Squamous Epithelial Cells - UA 0 SEEN /hpf (0-5)
[2018-05-22 06:15] LABS: Color, Urine Yellow (Yellow); Glucose, Dipstick Normal (Normal); Ketone-Dipstick 5 mg/dl (Negative); Leukocyte Esterase-Dipstick 100 /ul (Negative); Nitrite-Dipstick Negative (Negative); Occult Blood-Urine 25 /ul (Negative); Protein-Dipstick 15 mg/dl (Negative); Urine Bilirubin Dipstick Negative (Negative); Urine Clarity Sl. Cloudy (Clear); Urine Urobilinogen 1 mg/dl (Normal)
[2018-05-22 06:30] LABS: Bacteria 3+ /hpf (None Seen); White Blood Cells 10-25 SEEN /hpf (0-5)
--- NOTE | 2018-05-22 07:20 | NURSING ---
CALLED [facility] FOR TRANSFER. NO ICU OR STEP DOWN BEDS. FULL CALLING [facility] FOR TRANSFER.
--- NOTE | 2018-05-22 07:22 | NURSING ---
AN HENRIQUEZ TALKED TO [facility]. NO BEDS IN HOSPITAL
--- NOTE | 2018-05-22 07:28 | NURSING ---
CALLED [facility] , TALKED TO VINNY. NO BEDS AVAILABLE CALLED [facility], TALKED TO CAITLIN.
--- NOTE | 2018-05-22 08:00 | NURSING ---
DR RYAN FOR DR WONG
[2018-05-22 09:22] LABS: Reflex Lactate? Y
[2018-05-22] MEDS: fentaNYL 100 MCG/2 ML Ampul 25 MCG IV ×2 (09:50→12:29)
[2018-05-22 10:16] LABS: Lactic Acid 1.9 mmol/L (0.4-2.0)
--- NOTE | 2018-05-22 12:03 | NURSING ---
CALLED [facility], ETA IS 20 TO 30 MIN
--- NOTE | 2018-05-22 21:12 | ED.RN ---
spoke with magnus gay about positive blood culture results. spoke with nurse taking care of patient. Patient had just been discharged from the ER. Ortho doctor seen patient and was discharged home with follow up. Will discuss with ER doctors here about plan of care.
--- NOTE | 2018-05-22 21:29 | ED.RN ---
spoke with Dr. Tolentino about patients care. Patient requires admission for atx treatment. Patient would benefit admission to [facility] for follow up care. Patient may present to [facility] for care but may require transfer. Attempted to contact patient via primary number left message, used secondary contact and left message. Awaiting return call from patient at this time to discuss patient care.
== END 2018-05-22 13:00 | disposition short-term general hospital (02) ==
LOC: ED 05:55
PROVIDERS: Emergency Provider Emergency Medicine; Family Provider Family Medicine Geriatric Medicine; PCP Family Medicine Geriatric Medicine
DX: M71.121 Other infective bursitis, right elbow (principal); R65.21 Severe sepsis with septic shock; M86.9 Osteomyelitis, unspecified; I45.10 Unspecified right bundle-branch block; R11.2 Nausea with vomiting, unspecified; R30.0 Dysuria; R39.15 Urgency of urination; R35.0 Frequency of micturition; Z79.82 Long term (current) use of aspirin
CPT/HCPCS: 36415; 71046; 73080; 80053; 81001; 83605; 83690; 84484; 85025; 85610; 85730; 87040; 87077; 87086; 87088; 87186; 93005; 96361; 96365; 96366; 96367; 96374; 96376; 99285; J7030; J7050; P9612; A4216

== ENCOUNTER → 2018-06-18 14:13 | Outpatient (CLI) | payer OTHER, SELFPAY ==
[2018-05-22 05:01] VITALS: BMI 28.0
--- NOTE | 2018-06-18 14:47 | RAD_ITS ---
STUDY: X-RAY - ABDOMEN/PELVIS REASON FOR EXAM: Male, 73 years old. Fecal impaction. Abdominal pain. TECHNIQUE: AP supine and upright views of the abdomen and pelvis. COMPARISON: None. FINDINGS: Normal visualized lung bases. There is feces seen throughout the colon. There is gas-filled nondistended small bowel loops in the right upper quadrant without air-fluid levels. There is a focus of stool surrounded by air within the rectum. There is no demonstrated free abdominal air. The visualized liver, spleen and kidneys are grossly normal in size and morphology. Normal soft tissue structures. There are diffuse degenerative changes of the visualized lumbar spine. RAD/Abd Inc Decub and/or Erect IMPRESSION: Increased colonic feces with nonspecific bowel gas pattern. Electronically Signed: Aneudy Billy DO at 16:59 EST Tel [phone], Service support ,
[2018-06-18 15:56] LABS: Absolute Lymphocyte Count 1.23 X10^3/ul (0.83-4.51); Absolute Neutrophil Count 1.4 X10^3/uL (2.0-7.7); Basophil# 0.01 X10^3/uL; Basophil% 0.3 % (0-1); Eosinophil# 0.11 X10^3/uL; Eosinophils% 3.2 % (0-5); Hematocrit 46.1 % (40-54); Hemoglobin 14.2 g/dl (13.0-16.5); Lymphocyte # 1.23 X10^3/ul (4.0); Lymphocyte % 35.2 % (19-41); Mean Corp Hgb Conc 30.8 g/gl (32-36); Mean Corpuscular Hgb 30.3 pg (27.0-32.0); Mean Corpuscular Volume 98.5 fL (80-94); Mean Platelet Vol. 10.4 fl (6.2-12.0); Monocyte# 0.77 X10^3/uL; Monocyte% 22.1 % (0-10); Neutrophil # 1.37 X10^3/uL (2.7-7.7); Neutrophil % 39.2 % (47-70); Platelet Count 176 K/mm3 (150-450); RBC Distribution Width CV 14.7 % (11.6-14.6); Red Blood Count 4.68 M/mm3 (4.6-6.2); White Blood Count 3.5 K/mm3 (4.4-11.0)
[2018-06-18 16:09] LABS: Anion Gap 3 (5-15); BUN 13 mg/dL (7-18); BUN/Creat Ratio 11.2 RATIO (10-20); Calcium,Total 8.7 mg/dL (8.5-10.1); Chloride 110 mmol/L (98-107); Creatinine, Serum 1.16 mg/dL (0.70-1.30); EST Glomerular Filtration Rate 65 mL/min (>60); Est Glom Filt Rate - Afr Amer 79 mL/min (>60); Glucose 68 mg/dL (74-106); Potassium 4.4 mmol/L (3.5-5.1); Sodium Level 140 mmol/L (136-145)
[2018-06-18 16:14] LABS: POSITIVE COUNT NO; POSITIVE DIFFERENTIAL NO; POSITIVE MORPHOLOGY NO
== END ==
PROVIDERS: Family Provider Family Medicine Geriatric Medicine; PCP Family Medicine Geriatric Medicine; Referring Provider Family Medicine Geriatric Medicine; Visit Provider Family Medicine Geriatric Medicine
DX: K56.41 Fecal impaction (principal); N18.3 Chronic kidney disease, stage 3 (moderate)
CPT/HCPCS: 36415; 74019; 80048; 85025

== ENCOUNTER → 2018-07-31 14:25 | Outpatient (CLI) | payer OTHER, SELFPAY ==
[2018-05-22 05:01] VITALS: BMI 28.0
[2018-07-31 15:49] LABS: Absolute Lymphocyte Count 1.43 X10^3/ul (0.83-4.51); Absolute Neutrophil Count 1.7 X10^3/uL (2.0-7.7); Basophil# 0.02 X10^3/uL; Basophil% 0.5 % (0-1); Eosinophil# 0.08 X10^3/uL; Hematocrit 50.5 % (40-54); Hemoglobin 15.7 g/dl (13.0-16.5); Lymphocyte # 1.43 X10^3/ul (4.0); Lymphocyte % 35.2 % (19-41); Mean Corp Hgb Conc 31.1 g/gl (32-36); Mean Corpuscular Hgb 30.6 pg (27.0-32.0); Mean Corpuscular Volume 98.4 fL (80-94); Mean Platelet Vol. 10.5 fl (6.2-12.0); Monocyte% 19.7 % (0-10); Neutrophil # 1.73 X10^3/uL (2.7-7.7); Neutrophil % 42.6 % (47-70); Platelet Count 176 K/mm3 (150-450); RBC Distribution Width CV 14.5 % (11.6-14.6); RBC Distribution Width SD 51.8 fl (35.1-43.9); Red Blood Count 5.13 M/mm3 (4.6-6.2); White Blood Count 4.1 K/mm3 (4.4-11.0)
[2018-07-31 15:58] LABS: Vitamin D,25 Hydroxy 31.2 ng/mL (29.95-100.01)
[2018-07-31 16:04] LABS: AST(SGOT) 20 U/L (15-37); Alanine Aminotransfer ALT/SGPT 30 U/L (16-61); Albumin, Serum 3.8 g/dL (3.2-5.0); Alkaline Phosphatase 85 U/L (45-117); Anion Gap 6 (5-15); BUN 12 mg/dL (7-18); BUN/Creat Ratio 8.6 RATIO (10-20); Chloride 106 mmol/L (98-107); EST Glomerular Filtration Rate 53 mL/min (>60); Est Glom Filt Rate - Afr Amer 64 mL/min (>60); Glucose 85 mg/dL (74-106); Potassium 4.4 mmol/L (3.5-5.1); Protein, Total 7.8 g/dL (6.4-8.2); Sodium Level 140 mmol/L (136-145); Thyroid Stim Hormone (TSH) 1.22 uIU/mL (0.358-3.74)
[2018-07-31 16:29] LABS: POSITIVE COUNT NO; POSITIVE DIFFERENTIAL NO; POSITIVE MORPHOLOGY NO
== END ==
PROVIDERS: Family Provider Family Medicine Geriatric Medicine; PCP Family Medicine Geriatric Medicine; Visit Provider Family Medicine Geriatric Medicine
DX: E23.6 Other disorders of pituitary gland (principal); E55.9 Vitamin D deficiency, unspecified; I10 Essential (primary) hypertension; Z12.89 Encounter for screening for malignant neoplasm of other sites
CPT/HCPCS: 36415; 80053; 82306; 84403; 84443; 85025; 86301

== ENCOUNTER → 2018-10-29 | Outpatient (CLI) | payer OTHER, SELFPAY ==
[2018-05-22 05:01] VITALS: BMI 28.0
[2018-10-31 20:06] LABS: QNTFERON TB Mitogen Value > 10.00 IU/mL (.); QNTFERON TB Nil Value 0.02 IU/mL (.); QNTFERON TB1+ Ag Value 0.04 IU/mL (.); QNTFERON TB2+ Ag Value 0.02 IU/mL (.)
[2018-11-01 11:40] LABS: QNTIFERON TB Positive Criteria Negative (Negative)
== END | disposition home or self-care (01) ==
LOC: LAB 11:27
PROVIDERS: Family Provider Family Medicine Geriatric Medicine; PCP Family Medicine Geriatric Medicine; Referring Provider Dermatology Pediatric Dermatology; Visit Provider Dermatology Pediatric Dermatology
DX: L40.0 Psoriasis vulgaris (principal); Z79.899 Other long term (current) drug therapy
CPT/HCPCS: 36415; 86480

== ENCOUNTER → 2018-11-12 | Outpatient (CLI) | payer OTHER, SELFPAY ==
[2018-05-22 05:01] VITALS: BMI 28.0
[2018-11-12 12:34] LABS: PSA,Total- Diagnostic 3.14 ng/mL (0.0-4.0)
== END | disposition home or self-care (01) ==
LOC: LAB 10:31
PROVIDERS: Family Provider Family Medicine Geriatric Medicine; PCP Family Medicine Geriatric Medicine; Referring Provider Urology; Visit Provider Urology
DX: C61 Malignant neoplasm of prostate (principal)
CPT/HCPCS: 36415; 84153

== ENCOUNTER → 2018-12-05 | Outpatient (CLI) | payer OTHER, SELFPAY ==
[2018-05-22 05:01] VITALS: BMI 28.0
--- NOTE | 2018-12-05 15:05 | RAD_ITS ---
STUDY: X-RAY - ABDOMEN/PELVIS REASON FOR EXAM: Male, 73 years old. Right lower quadrant pain TECHNIQUE: AP supine and upright views of the abdomen and pelvis. COMPARISON: June 18, 2018 FINDINGS: Normal visualized lung bases. There is an unremarkable bowel gas pattern. There is no demonstrated free abdominal air. The visualized liver, spleen and kidneys are grossly normal in size and morphology. There are calcified phleboliths in the pelvis. Normal visualized osseous structures. RAD/Abd Inc Decub and/or Erect IMPRESSION: Normal bowel gas pattern. Electronically Signed: Narendra Linda MD at 17:00 EDT Tel , Service support ,
[2018-12-05 17:05] LABS: Absolute Neutrophil Count 1.4 X10^3/uL (2.0-7.7); Basophil# 0.02 X10^3/uL; Basophil% 0.5 % (0-1); Eosinophil# 0.15 X10^3/uL; Eosinophils% 4.1 % (0-5); Hematocrit 47.5 % (40-54); Hemoglobin 15.2 g/dL (13.0-16.5); Lymphocyte % 37.9 % (19-41); Mean Corpuscular Hgb 31.1 pg (27.0-32.0); Mean Corpuscular Volume 97.1 fL (80-94); Mean Platelet Vol. 10.4 fl (6.2-12.0); NRBC Flagged by Analyzer 0 % (0-5); Neutrophil # 1.41 X10^3/uL (2.7-7.7); Neutrophil % 38.2 % (47-70); Platelet Count 146 K/mm3 (150-450); RBC Distribution Width CV 13.7 % (11.6-14.6); RBC Distribution Width SD 49.6 fl (35.1-43.9); Red Blood Count 4.89 M/mm3 (4.6-6.2); White Blood Count 3.7 K/mm3 (4.4-11.0)
[2018-12-05 17:17] LABS: Erythrocyte Sedimentation Rate 6 mm/hr (0-20)
[2018-12-05 17:56] LABS: Anion Gap 8 (5-15); BUN 14 mg/dL (7-18); BUN/Creat Ratio 9.8 RATIO (10-20); CRP < 2.90 mg/L (0.0-3.0); Calcium,Total 8.9 mg/dL (8.5-10.1); Chloride 109 mmol/L (98-107); Creatinine, Serum 1.43 mg/dL (0.70-1.30); EST Glomerular Filtration Rate 51 mL/min (>60); Est Glom Filt Rate - Afr Amer 62 mL/min (>60); Glucose 87 mg/dL (74-106); Potassium 4.2 mmol/L (3.5-5.1); Sodium Level 142 mmol/L (136-145)
== END | disposition home or self-care (01) ==
LOC: POLAB3 14:52 → RAD 14:59
PROVIDERS: Family Provider Family Medicine Geriatric Medicine; PCP Family Medicine Geriatric Medicine; Referring Provider Family Medicine Geriatric Medicine; Visit Provider Family Medicine Geriatric Medicine
DX: R10.9 Unspecified abdominal pain (principal); M10.9 Gout, unspecified
CPT/HCPCS: 36415; 74019; 80048; 85025; 85652; 86140

== ENCOUNTER → 2018-12-06 | Outpatient (CLI) | payer OTHER, SELFPAY ==
[2018-05-22 05:01] VITALS: BMI 28.0
--- NOTE | 2018-12-06 10:01 | US_ITS ---
STUDY: ABDOMINAL ULTRASOUND - RIGHT UPPER QUADRANT REASON FOR VISIT: Male, 73 years old. Right lower quadrant pain TECHNIQUE: Ultrasound evaluation of the right upper quadrant was performed with real-time and static sanz-scale imaging. TECHNICAL QUALITY: Adequate. COMPARISON: None. FINDINGS: Liver: The liver measures 11.7 cm. There is normal echogenicity of the liver. The bile ducts are within normal limits. There is hepatic color flow. The direction of portal flow is hepatopetal. There is no demonstrated mass lesion. Gallbladder: The patient is status post cholecystectomy. Common Bile Duct (C.B.D.): The common bile duct measures 2.9 mm. Pancreas: The pancreas is obscured by bowel gas Right Kidney: Normal size of the right kidney. The right kidney measures 10.3 cm. Normal renal cortex. There is no demonstrated renal mass or cyst. There is no right hydronephrosis. US/Abdomen Limited IMPRESSION: Cholecystectomy. CBD is normal caliber. Electronically Signed: Kristopher Edmond, at 12:04 EDT Tel , Service support ,
== END | disposition home or self-care (01) ==
LOC: US 09:59
PROVIDERS: Family Provider Family Medicine Geriatric Medicine; PCP Family Medicine Geriatric Medicine; Referring Provider Family Medicine Geriatric Medicine; Visit Provider Family Medicine Geriatric Medicine
DX: R10.9 Unspecified abdominal pain (principal)
CPT/HCPCS: 76705

== ENCOUNTER → 2019-01-29 09:42 | Outpatient (CLI) | payer OTHER, MEDICARE, SELFPAY ==
[2018-05-22 05:01] VITALS: BMI 28.0
--- NOTE | 2019-01-29 11:10 | RAD_ITS ---
STUDY: X-RAY - LEFT SHOULDER REASON FOR EXAM: Male, 73 years old. Pain. TECHNIQUE: 3 view(s) of the shoulder. COMPARISON: None. FINDINGS: Normal glenohumeral articulation. Normal acromioclavicular joint. Normal acromion. Normal humeral head and visualized proximal humerus. There is periarticular soft tissue calcification consistent with a calcific tendinitis. Normal visualized pulmonary apex. RAD/Shoulder min 2 Views IMPRESSION: No acute fracture or dislocation. Calcific tendinitis. Electronically Signed: Tobias Paredes MD at 18:09 EDT , Service support ,
[2019-01-29 12:44] LABS: Absolute Lymphocyte Count 1.02 X10^3/uL (0.83-4.51); Absolute Neutrophil Count 1.8 X10^3/uL (2.0-7.7); Basophil# 0.03 X10^3/uL; Basophil% 0.9 % (0-1); Eosinophil# 0.06 X10^3/uL; Eosinophils% 1.8 % (0-5); Hematocrit 46.4 % (40-54); Hemoglobin 14.4 g/dL (13.0-16.5); Lymphocyte # 1.02 X10^3/ul (4.0); Lymphocyte % 29.9 % (19-41); Mean Corpuscular Hgb 30.9 pg (27.0-32.0); Mean Corpuscular Volume 99.6 fL (80-94); Mean Platelet Vol. 10.6 fl (6.2-12.0); Monocyte# 0.53 X10^3/uL; Monocyte% 15.5 % (0-10); NRBC Flagged by Analyzer 0 % (0-5); Neutrophil # 1.76 X10^3/uL (2.7-7.7); Neutrophil % 51.6 % (47-70); Platelet Count 126 K/mm3 (150-450); RBC Distribution Width CV 14.1 % (11.6-14.6); RBC Distribution Width SD 52.4 fl (35.1-43.9); Red Blood Count 4.66 M/mm3 (4.6-6.2); White Blood Count 3.4 K/mm3 (4.4-11.0)
[2019-01-29 13:00] LABS: Vitamin D,25 Hydroxy 36.2 ng/mL (29.95-100.01)
[2019-01-29 13:21] LABS: ALB/GLOB Ratio 0.9 RATIO (0.9-2.4); AST(SGOT) 18 U/L (15-37); Alanine Aminotransfer ALT/SGPT 27 U/L (16-61); Albumin, Serum 3.4 g/dL (3.2-5.0); Alkaline Phosphatase 78 U/L (45-117); Anion Gap 7 (5-15); BUN 11 mg/dL (7-18); BUN/Creat Ratio 8.5 RATIO (10-20); Calcium,Total 8.6 mg/dL (8.5-10.1); Chloride 110 mmol/L (98-107); Creatinine, Serum 1.29 mg/dL (0.70-1.30); EST Glomerular Filtration Rate 58 mL/min (>60); Est Glom Filt Rate - Afr Amer 70 mL/min (>60); Globulin 3.7 g/dL (2.2-4.2); Glucose 90 mg/dL (74-106); Potassium 4.6 mmol/L (3.5-5.1); Protein, Total 7.1 g/dL (6.4-8.2); Sodium Level 143 mmol/L (136-145); Thyroid Stim Hormone (TSH) 1.12 uIU/mL (0.358-3.74)
== END ==
PROVIDERS: Family Provider Family Medicine Geriatric Medicine; PCP Family Medicine Geriatric Medicine; Referring Provider Family Medicine Geriatric Medicine; Visit Provider Family Medicine Geriatric Medicine
DX: M25.512 Pain in left shoulder (principal); E11.9 Type 2 diabetes mellitus without complications; E23.6 Other disorders of pituitary gland; E55.9 Vitamin D deficiency, unspecified; I10 Essential (primary) hypertension
CPT/HCPCS: 36415; 73030; 80053; 82306; 84403; 84443; 85025

== ENCOUNTER → 2019-07-30 10:41 | Outpatient (CLI) | payer OTHER, SELFPAY ==
[2019-05-09 11:22] VITALS: BMI 26.6
[2019-07-30 12:15] LABS: Absolute Lymphocyte Count 1.28 X10^3/uL (0.83-4.51); Absolute Neutrophil Count 1.5 X10^3/uL (2.0-7.7); Basophil# 0.02 X10^3/uL; Basophil% 0.6 % (0-1); Eosinophil# 0.09 X10^3/uL; Eosinophils% 2.6 % (0-5); Hematocrit 49.2 % (40-54); Hemoglobin 15.5 g/dL (13.0-16.5); Lymphocyte # 1.28 X10^3/ul (4.0); Lymphocyte % 36.7 % (19-41); Mean Corp Hgb Conc 31.5 g/dL (32-36); Mean Corpuscular Volume 98.4 fL (80-94); Monocyte% 17.2 % (0-10); NRBC Flagged by Analyzer 0 % (0-5); Neutrophil # 1.49 X10^3/uL (2.7-7.7); Neutrophil % 42.6 % (47-70); Platelet Count 153 K/mm3 (150-450); RBC Distribution Width CV 13.6 % (11.6-14.6); RBC Distribution Width SD 49.5 fl (35.1-43.9); White Blood Count 3.5 K/mm3 (4.4-11.0)
[2019-07-30 12:48] LABS: AST(SGOT) 27 U/L (15-37); Alanine Aminotransfer ALT/SGPT 38 U/L (16-61); Albumin, Serum 3.9 g/dL (3.2-5.0); Alkaline Phosphatase 75 U/L (45-117); Anion Gap 4 (5-15); BUN 14 mg/dL (7-18); BUN/Creat Ratio 9.9 RATIO (10-20); Calcium,Total 9.2 mg/dL (8.5-10.1); Chloride 105 mmol/L (98-107); Creatinine, Serum 1.41 mg/dL (0.70-1.30); EST Glomerular Filtration Rate 52 mL/min (>60); Est Glom Filt Rate - Afr Amer 63 mL/min (>60); Glucose 102 mg/dL (74-106); Potassium 4.3 mmol/L (3.5-5.1); Protein, Total 7.9 g/dL (6.4-8.2); Sodium Level 138 mmol/L (136-145); Thyroid Stim Hormone (TSH) 0.86 uIU/mL (0.358-3.74)
[2019-07-30 14:34] LABS: Vitamin D,25 Hydroxy 29.3 ng/mL
== END ==
PROVIDERS: PCP Family Medicine Geriatric Medicine; Visit Provider Family Medicine Geriatric Medicine
DX: E11.9 Type 2 diabetes mellitus without complications (principal); E23.6 Other disorders of pituitary gland; E55.9 Vitamin D deficiency, unspecified; I10 Essential (primary) hypertension
CPT/HCPCS: 36415; 80053; 82306; 84403; 84443; 85025

== ENCOUNTER → 2019-10-17 | Outpatient (CLI) | payer OTHER, SELFPAY ==
[2019-05-09 11:22] VITALS: BMI 26.6
--- NOTE | 2019-10-17 11:48 | COLBX_PTH ---
PATIENT: BALJINDER PÉREZ LOC: [facility] U#:[id number] AGE/SX: 74/M ROOM: RE10/17/[address]: Dr. Angel Pizarro MD : 1945 BED: DIS: 10/17/2019 SPEC #: [id number] RECD: 10/17/19 15:16 STATUS: [place] SANTOYO #: [id number] IVETTE: 10/17/19 11:[address]: Angel Pizarro DEPT: SURGICAL PATHOLOGY RECD BY: Bayron Hernandez ENTERED: 10/20/19 08:36 SP TYPE: COLON BX OTHR DR: Dr. Aashish Bhakta MD [facility] Tissues: Transverse colon Procedures: Surgery Specimen Level IV HEADER OPERATION: Colonoscopy with polypectomy PRE-OP DIAGNOSIS: History polyps TISSUE SUBMITTED: Transverse colon polyp, rule out adenoma MICROSCOPIC DIAGNOSIS Transverse colon polyp, polypectomy: Fragments of tubular adenoma. Fragments of fecal material. SJ:sebastián 10/21/19 MICROSCOPIC DESCRIPTION Slides are reviewed. GROSS DESCRIPTION Received in fixative is one container labeled with the patient's name and designated transverse colon polyp. The specimen consists of multiple irregular fragments of light pardo soft tissue that in aggregate measure 0.6 x 0.6 x 0.2 cm. The specimen is totally submitted in one cassette. / AM:sebastián 10/20/19 TC:1 CPT: 24120
== END | disposition home or self-care (01) ==
LOC: LABSPEC 15:50
PROVIDERS: PCP Family Medicine Geriatric Medicine; Referring Provider Internal Medicine Gastroenterology; Visit Provider Internal Medicine Gastroenterology
DX: D12.3 Benign neoplasm of transverse colon (principal); Z86.010 Personal history of colon polyps
CPT/HCPCS: 88305

== ENCOUNTER → 2020-02-03 11:54 | Outpatient (CLI) | payer OTHER, SELFPAY ==
[2019-05-09 11:22] VITALS: BMI 26.6
[2020-02-03 12:41] LABS: Absolute Lymphocyte Count 1.24 X10^3/uL (0.83-4.51); Absolute Neutrophil Count 1.1 X10^3/uL (2.0-7.7); Basophil# 0.03 X10^3/uL; Eosinophil# 0.07 X10^3/uL; Eosinophils% 2.3 % (0-5); Hematocrit 47.9 % (40-54); Hemoglobin 15.2 g/dL (13.0-16.5); Lymphocyte # 1.24 X10^3/ul (4.0); Lymphocyte % 39.9 % (19-41); Mean Corp Hgb Conc 31.7 g/dL (32-36); Mean Corpuscular Hgb 30.8 pg (27.0-32.0); Mean Corpuscular Volume 97.2 fL (80-94); Mean Platelet Vol. 10.1 fl (6.2-12.0); Monocyte# 0.65 X10^3/uL; Monocyte% 20.9 % (0-10); NRBC Flagged by Analyzer 0 % (0-5); Neutrophil # 1.11 X10^3/uL (2.7-7.7); Neutrophil % 35.6 % (47-70); Platelet Count 145 K/mm3 (150-450); RBC Distribution Width CV 13.8 % (11.6-14.6); RBC Distribution Width SD 49.8 fl (35.1-43.9); Red Blood Count 4.93 M/mm3 (4.6-6.2); White Blood Count 3.1 K/mm3 (4.4-11.0)
[2020-02-03 13:06] LABS: AST(SGOT) 23 U/L (15-37); Alanine Aminotransfer ALT/SGPT 36 U/L (16-61); Albumin, Serum 3.9 g/dL (3.2-5.0); Alkaline Phosphatase 81 U/L (45-117); Anion Gap 4 (5-15); BUN 12 mg/dL (7-18); Calcium,Total 9.3 mg/dL (8.5-10.1); Chloride 107 mmol/L (98-107); Creatinine, Serum 1.33 mg/dL (0.70-1.30); EST Glomerular Filtration Rate 56 mL/min (>60); Est Glom Filt Rate - Afr Amer 67 mL/min (>60); Glucose 97 mg/dL (74-106); Potassium 4.5 mmol/L (3.5-5.1); Protein, Total 7.9 g/dL (6.4-8.2); Sodium Level 140 mmol/L (136-145); Thyroid Stim Hormone (TSH) 0.85 uIU/mL (0.358-3.74)
[2020-02-03 13:23] LABS: Vitamin D,25 Hydroxy 34.3 ng/mL
== END ==
PROVIDERS: PCP Family Medicine Geriatric Medicine; Visit Provider Family Medicine Geriatric Medicine
DX: I10 Essential (primary) hypertension (principal); E23.6 Other disorders of pituitary gland; E55.9 Vitamin D deficiency, unspecified
CPT/HCPCS: 36415; 80053; 82306; 84403; 84443; 85025

== ENCOUNTER 2020-03-26 09:00 | Outpatient (RCR) | payer OTHER, SELFPAY ==
[2020-02-23 12:20] VITALS: BMI 26.6
--- NOTE | 2020-03-04 09:04 | HP.PTEVAL_ITS ---
Patient's Visit Information BALJINDER PÉREZ is a 74 year old M referred to Physical Therapy by Dr. Chetan Agudelo DO with a diagnosis of L SHLD CALCIFIC TENDINITIS, OA AND IMPINGEMENT. CERVICAL DDD.. Date of Evaluation: 03/04/20 Physical Therapist: Diandra Hartman, PT, Cert MDT - Visit Plan Frequency: 2-3x /Week Duration: 4-6 Weeks Plan: LEFT NECK AND/OR SHLD US NEEDED. POSTURE CORRECTION/STRENGTHENING, INSTRUCTION IN APPROPRIATE BODY MECHANICS AND ACTIVITY MODIFICATIONS. BILL UE ROM, STRETCHING AND STRENGTHENING. HEP INSTRUCTION. - Subjective Diagnosis: NECK AND L SHLD. Work/Leisure: RETIRED. Present symptoms: PATIENT REPORTS HE ISN'T REALLY HAVING NECK PAIN. PATIENTS CHEIF COMPLAINT IS SEVERE LEFT SHOULDER AND ARM PAIN THAT STOPS JUST BELOW HIS ELBOW. ALSO HAS SOME NUMBNES OF THUMB AND INDEX FINGER. Present since: ABOUT 2 YEARS. Pain Scale: Worst - 10/10 Least - 2/10. Currently: 09/20. Commenced as a result of: NO APPARENT REASON. Symptoms at onset: LEFT FOREARM. Worse: RANDOM BUT SEEMS TO BE WORSE WHEN STILL AND TRYING TO RELAX. Better: RIGHT SDLY WITH ARM IN FRONT AND IN BACK OF BODY. ALSO PUTTING ARM UP AND HAND BEHIND HEAD LYING DOWN WILL EASE THE PAIN SOME. Disturbed sleep: YES. Previous history/Previous treatment: NO NECK SURGERY. NO L SHLD SURGERY. NO CHIROPRACTOR. NO PHYSICAL THERAPY. REPORTS DR. QUACH GAVE HIM SOME MEDICINE FOR IT ABOUT A YEAR AGO THAT HELPED FOR AWHILE. This episode: ABOUT A WEEK AGO - LEFT SHLD CORTISONE INJECTION BY DR. AGUDELO - PATIENT REPORTS THE SHOT HELPED A LOT. Dizziness: NO. Tinnitis: NO. Nausea: NO. Shortness of Breath: NO. Difficulty Swollowing: NO. Gait: NORMAL - NO RECENT CHANGES. Accidents: NO. Unexplained weight loss: NO. Imagin02/23/20 NECK X-RAY: Diffuse degenerative disc disease. Normal alignment. 02/23/20: L SHLD X-RAY: Degenerative change. Stable calcific tendinosis. No visualized acute. fracture. No dislocation. PMH/Recent major surgery: HIGH CHOLESTEROL - Objective Sitting Posture/Standing Posture: POOR. FORWARD HEAD. ROUNDED SHOULDERS. NO TORTICOLLIS. Active Correction of posture: NE. Other Observations: INDEP GAIT AND TRANSFERS. PATIENT IS PLEASANT AND COOPERATIVE TO WORK WITH. 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 RIGHT HAND DOMINANT. BILL UE STRENGTH GROSSLY 5/5 WITH MMT'ING IN MID RANGE. Sensory deficit: DECREASED LIGHT TOUCH SENSATION OF LEFT FOREARM AND HAND COMPARED TO RIGHT. ROM deficit: DECREASED BILL SHOULDER ELEVATION TO ABOUT 155 DEG RIGHT AND 145 DEG LEFT AND C/O PAIN AND TIGHTNESS WITH LEFT UE TESTING. Reflexes: UNABLE TO ELICIT BILL UE DTR'S. Dural Signs: POSITIVE LEFT UE. Cervical Mvmt Loss: Flex: NIL. Pro: NIL. Ext: MIN TO MOD. Ret: MOD. RSB: MOD. LSB: MOD. R Rot: MIN. L Rot: MIN. Postural strength: POOR. Palpation: TENDERNESS WITH PALPATION OF THE LOWER CERVICAL SPINE. INCREASED MUSCLE TONE BILL CERVICAL MUSCULATURE. NO ACUTE LEFT SHLD TENDERNESS. OTHER: SEATED CERVICAL DISTRACTION TESTING - NE. TREATMENT: NEUROMUSCULAR REEDUCATION - RETRAINING OF MVMT AND POSTURE FOR SITTING, LYING AND STANDING ACTIVITIES. - Goals Goal 1:: DECREASE C/O NECK AND LEFT SHLD PAIN Goal Time Frame: 4-6 Weeks Goal 2:: IMPROVE LEFT UE FUNCTIONAL ROM Goal Time Frame: 4-6 Weeks Goal 3:: IMPROVE SLEEP FUNCTION Goal Time Frame: 4-6 Weeks Goal 4:: INSTRUCT IN PROPHYLAXIS Goal Time Frame: 4-6 Weeks - Anticipated Interventions Patient/Client Instruction: Educate patient on: Condition, Plan of Care, Risk Factors, Benefits of Fitness Program For the Purpose of:: To improve self management Therapeutic Exercise to Include: Strength training, Body mechanics, Postural training, Flexibilty training, Neuromotor development, Scapular Strength/Stabilization For the Purpose of:: To decrease pain, To increase ROM, To improve muscle performance and motor function, To improve ability of physical actions for home/community/work/leisure Thank you for the opportunity to evaluate your patient. For Medicare and Medicare HMO plans, please review the plan of care and approve it. It will need to be FAXED BACK to us at [phone] for Medicare purposes. For Medicare only, by signing this I certify the plan of care. Please let me know if there are questions or concerns regarding this plan of care. Physician Signature: Date:
--- NOTE | 2020-03-26 09:59 | HP.PTDCSUM ---
It has been my pleasure to treat BALJINDER PÉREZ referred by Dr. Chetan Agudelo DO, with the diagnosis of L SHLD CALCIFIC TENDINITIS, OA AND IMPINGEMENT. CERVICAL DDD. for a total of 10 visit(s). Discharge Date: Please see the following information for a summary of their discharge status. Subjective: PATIENT REPORTS THERAPY HAS HELPED. PATIENT REPORTS HIS HEP IS GOING GOOD. LEFT FOREARM Pain Intensity (Out of 10): 0 SHOULDER Pain Intensity (Out of 10): 0 % Improvement: 75 Objective/Function: PATIENT WAS SEEN TODAY FOR RE-ASSESSMENT OF PROGRESS TOWARD THE SET PT GOALS AND THE NEED FOR FURTHER PHYSICAL THERAPY VS READINESS FOR DISCHARGE. PATIENT CONTINUES TO HAVE DECREASED LEFT SHLD ROM BUT IT HAS IMRPOVED WITH PT. HE IS NOW INDEP WITH A NECK AND SHOULDER ROM, STRETCHING AND STRENGTHENING PROGRAM NOW. UPON EXAM TODAY: Motor deficit: LEFT 78 DEG. BILL UE STRENGTH GROSSLY 5/5 WITH MMT'ING IN MID RANGE. Sensory deficit: DECREASED LIGHT TOUCH SENSATION OF LEFT FOREARM AND HAND COMPARED TO RIGHT. ROM deficit: LEFT SHOULDER ACTIVE FLEXION IN SITTING TO 159 DEG. SUPINE PASSIVE FLEXION TO 164 DEG, IR 70 DEG AND ER 70 DEG. Cervical Mvmt Loss: Flex: NIL. Pro: NIL. Ext: MIN TO MOD. Ret: MOD. RSB: MIN. LSB: MIN. R Rot: MIN. L Rot: MIN Goal 1:: DECREASE C/O NECK AND LEFT SHLD PAIN Goal Progress: Goal Met Goal 2:: IMPROVE LEFT UE FUNCTIONAL ROM Goal Progress: Goal Met Goal 3:: IMPROVE SLEEP FUNCTION Goal Progress: Goal Met Goal 4:: INSTRUCT IN PROPHYLAXIS Goal Progress: Goal Met Plan: D/C TO HEP. PATIENT AGREEABLE. If there are questions or concerns regarding this patient's physical therapy, please feel free to call me at [phone]. Thank you for the referral of this patient. Sincerely, Diandra Hartman, PT, Cert MDT
== END 2020-03-26 19:00 | disposition home or self-care (01) ==
LOC: PT 09:00
PROVIDERS: PCP Family Medicine Geriatric Medicine; Referring Provider Orthopaedic Surgery; Visit Provider Orthopaedic Surgery
DX: M75.32 Calcific tendinitis of left shoulder (principal); M25.812 Other specified joint disorders, left shoulder; M19.012 Primary osteoarthritis, left shoulder; M50.30 Other cervical disc degeneration, unspecified cervical region
CPT/HCPCS: 97012; 97035; 97110; 97112; 97140; 97162; 97164; 97530

== ENCOUNTER → 2020-05-05 17:18 | Outpatient (CLI) | payer OTHER, SELFPAY ==
[2020-02-23 12:20] VITALS: BMI 26.6
== END ==
PROVIDERS: PCP Family Medicine Geriatric Medicine; Referring Provider Family Medicine Geriatric Medicine; Visit Provider Family Medicine Geriatric Medicine
DX: U07.1 COVID-19 (principal)
CPT/HCPCS: 87633; 87635; C9803; U0003

== ENCOUNTER → 2020-06-07 15:04 | Outpatient (CLI) | payer OTHER, SELFPAY ==
[2020-05-28 13:09] VITALS: BMI 25.5
[2020-06-07 16:47] LABS: Absolute Lymphocyte Count 1.39 X10^3/uL (0.83-4.51); Absolute Neutrophil Count 1.2 X10^3/uL (2.0-7.7); Basophil# 0.02 X10^3/uL; Basophil% 0.6 % (0-1); Eosinophil# 0.09 X10^3/uL; Eosinophils% 2.6 % (0-5); Hemoglobin 13.8 g/dL (13.0-16.5); Lymphocyte # 1.39 X10^3/ul (4.0); Lymphocyte % 40.4 % (19-41); Mean Corp Hgb Conc 32.1 g/dL (32-36); Mean Corpuscular Hgb 31.4 pg (27.0-32.0); Mean Corpuscular Volume 97.7 fL (80-94); Mean Platelet Vol. 10.3 fl (6.2-12.0); Monocyte# 0.69 X10^3/uL; Monocyte% 20.1 % (0-10); NRBC Flagged by Analyzer 0 % (0-5); Neutrophil # 1.24 X10^3/uL (2.7-7.7); Platelet Count 180 K/mm3 (150-450); RBC Distribution Width CV 14.6 % (11.6-14.6); RBC Distribution Width SD 52.4 fl (35.1-43.9); White Blood Count 3.4 K/mm3 (4.4-11.0)
[2020-06-07 17:05] LABS: ALB/GLOB Ratio 0.9 RATIO (0.9-2.4); AST(SGOT) 21 U/L (15-37); Alanine Aminotransfer ALT/SGPT 27 U/L (16-61); Albumin, Serum 3.5 g/dL (3.2-5.0); Alkaline Phosphatase 84 U/L (45-117); Anion Gap 6 (5-15); BUN 9 mg/dL (7-18); BUN/Creat Ratio 6.5 RATIO (10-20); Calcium,Total 8.7 mg/dL (8.5-10.1); Chloride 107 mmol/L (98-107); Creatinine, Serum 1.39 mg/dL (0.70-1.30); EST Glomerular Filtration Rate 53 mL/min (>60); Est Glom Filt Rate - Afr Amer 64 mL/min (>60); Globulin 3.7 g/dL (2.2-4.2); Glucose 73 mg/dL (74-106); Potassium 4.3 mmol/L (3.5-5.1); Protein, Total 7.2 g/dL (6.4-8.2); Sodium Level 140 mmol/L (136-145); Thyroid Stim Hormone (TSH) 0.66 uIU/mL (0.358-3.74)
[2020-06-12 03:07] LABS: Immunoglobulin A 266 mg/dL (61-437); Immunoglobulin G 1252 mg/dL (603-1613); Immunoglobulin M 36 mg/dL (15-143)
[2020-06-12 10:47] LABS: Immunoglobulin E 14 IU/mL (6-495)
== END ==
PROVIDERS: PCP Family Medicine Geriatric Medicine; Visit Provider Family Medicine Geriatric Medicine
DX: D89.9 Disorder involving the immune mechanism, unspecified (principal); R53.83 Other fatigue
CPT/HCPCS: 36415; 80053; 82784; 82785; 84443; 85025

== ENCOUNTER → 2020-08-03 10:58 | Outpatient (CLI) | payer OTHER, SELFPAY ==
[2020-05-28 13:09] VITALS: BMI 25.5
[2020-08-03 12:16] LABS: Absolute Lymphocyte Count 0.96 X10^3/uL (0.83-4.51); Absolute Neutrophil Count 0.9 X10^3/uL (2.0-7.7); Basophil# 0.02 X10^3/uL; Basophil% 0.8 % (0-1); Eosinophil# 0.08 X10^3/uL; Eosinophils% 3.2 % (0-5); Hematocrit 46.9 % (40-54); Hemoglobin 14.7 g/dL (13.0-16.5); Lymphocyte # 0.96 X10^3/ul (4.0); Lymphocyte % 38.7 % (19-41); Mean Corp Hgb Conc 31.3 g/dL (32-36); Mean Corpuscular Volume 98.9 fL (80-94); Monocyte# 0.53 X10^3/uL; Monocyte% 21.4 % (0-10); NRBC Flagged by Analyzer 0 % (0-5); Neutrophil # 0.89 X10^3/uL (2.7-7.7); Neutrophil % 35.9 % (47-70); POSITIVE DIFFERENTIAL YES; Platelet Count 173 K/mm3 (150-450); RBC Distribution Width CV 14.4 % (11.6-14.6); Red Blood Count 4.74 M/mm3 (4.6-6.2); White Blood Count 2.5 K/mm3 (4.4-11.0)
[2020-08-03 12:18] LABS: Differential Indicated SCAN CRITERIA MET
[2020-08-03 12:33] LABS: Vitamin D,25 Hydroxy 25.8 ng/mL
[2020-08-03 12:43] LABS: ALB/GLOB Ratio 0.9 RATIO (0.9-2.4); AST(SGOT) 23 U/L (15-37); Alanine Aminotransfer ALT/SGPT 25 U/L (16-61); Albumin, Serum 3.6 g/dL (3.2-5.0); Alkaline Phosphatase 79 U/L (45-117); Anion Gap 5 (5-15); BUN 13 mg/dL (7-18); BUN/Creat Ratio 9.8 RATIO (10-20); Calcium,Total 8.9 mg/dL (8.5-10.1); Chloride 108 mmol/L (98-107); Creatinine, Serum 1.32 mg/dL (0.70-1.30); EST Glomerular Filtration Rate 56 mL/min (>60); Est Glom Filt Rate - Afr Amer 68 mL/min (>60); Globulin 3.9 g/dL (2.2-4.2); Glucose 93 mg/dL (74-106); Potassium 4.2 mmol/L (3.5-5.1); Protein, Total 7.5 g/dL (6.4-8.2); Sodium Level 141 mmol/L (136-145); Thyroid Stim Hormone (TSH) 0.74 uIU/mL (0.358-3.74)
[2020-08-03 12:45] LABS: Differential Comment SCANNED
== END ==
PROVIDERS: PCP Family Medicine Geriatric Medicine; Visit Provider Family Medicine Geriatric Medicine
DX: I10 Essential (primary) hypertension (principal); E55.9 Vitamin D deficiency, unspecified
CPT/HCPCS: 36415; 80053; 82306; 84443; 85025

== ENCOUNTER → 2020-08-20 10:51 | Outpatient (CLI) | payer OTHER, SELFPAY ==
[2020-05-28 13:09] VITALS: BMI 25.5
[2020-08-20 12:51] LABS: Absolute Lymphocyte Count 0.84 X10^3/uL (0.83-4.51); Absolute Neutrophil Count 1.1 X10^3/uL (2.0-7.7); Basophil# 0.03 X10^3/uL; Eosinophil# 0.11 X10^3/uL; Eosinophils% 3.7 % (0-5); Hematocrit 50.3 % (40-54); Hemoglobin 15.9 g/dL (13.0-16.5); Lymphocyte # 0.84 X10^3/ul (4.0); Lymphocyte % 27.9 % (19-41); Mean Corp Hgb Conc 31.6 g/dL (32-36); Mean Corpuscular Hgb 31.2 pg (27.0-32.0); Mean Corpuscular Volume 98.8 fL (80-94); Mean Platelet Vol. 9.9 fl (6.2-12.0); Monocyte# 0.89 X10^3/uL; Monocyte% 29.6 % (0-10); NRBC Flagged by Analyzer 0 % (0-5); Neutrophil # 1.13 X10^3/uL (2.7-7.7); Neutrophil % 37.5 % (47-70); Platelet Count 142 K/mm3 (150-450); RBC Distribution Width CV 13.5 % (11.6-14.6); RBC Distribution Width SD 50.2 fl (35.1-43.9); Red Blood Count 5.09 M/mm3 (4.6-6.2)
[2020-08-20 13:32] LABS: Anion Gap 6 (5-15); BUN 16 mg/dL (7-18); Calcium,Total 9.2 mg/dL (8.5-10.1); Chloride 105 mmol/L (98-107); Creatinine, Serum 1.45 mg/dL (0.70-1.30); EST Glomerular Filtration Rate 50 mL/min (>60); Est Glom Filt Rate - Afr Amer 61 mL/min (>60); Glucose 107 mg/dL (74-106); Sodium Level 136 mmol/L (136-145); Thyroid Stim Hormone (TSH) 0.82 uIU/mL (0.358-3.74)
== END ==
PROVIDERS: PCP Family Medicine Geriatric Medicine; Visit Provider Family Medicine Geriatric Medicine
DX: G92 Toxic encephalopathy (principal)
CPT/HCPCS: 36415; 80048; 84443; 85025

== ENCOUNTER → 2020-08-20 11:02 | Outpatient (CLI) | payer OTHER, SELFPAY ==
[2020-05-28 13:09] VITALS: BMI 25.5
--- NOTE | 2020-08-20 11:07 | CT_ITS ---
STUDY: CT BRAIN WITHOUT CONTRAST REASON FOR EXAM: Male, 75 years old. FALL INJURY RADIATION DOSAGE (If Supplied By Facility): CTDIvol = ( 44.99 ) mGy, DLP = ( 745.49 ) mGycm TECHNIQUE: Transaxial CT imaging of the brain was performed without administration of intravenous contrast material. Individualized dose optimization techniques were used for this CT. COMPARISON: No relevant priors. FINDINGS: No demonstrated scalp hematoma or skull fracture Normal size ventricles and extra-axial spaces for the patient''s age. Normal white matter tracts of the cerebral hemispheres. There are small punctate calcifications of the basal ganglia which are seen in the aging brain as a normal variant. Normal brainstem. Normal cerebellum. There is no intracranial hemorrhage. There are no findings of an acute ischemic infarction. Normal visualized paranasal sinuses. CT/Brain/Head without Contrast IMPRESSION: Chronic involutional changes of the brain. No acute hemorrhage Electronically Signed: Ryne Madison MD at 11:38 EDT , Service support ,
== END ==
PROVIDERS: PCP Family Medicine Geriatric Medicine; Referring Provider Family Medicine Geriatric Medicine; Visit Provider Family Medicine Geriatric Medicine
DX: T14.90XA Injury, unspecified, initial encounter (principal); W19.XXXA Unspecified fall, initial encounter; Y93.9 Activity, unspecified; Y92.9 Unspecified place or not applicable; Y99.9 Unspecified external cause status
CPT/HCPCS: 70450

== ENCOUNTER → 2020-09-10 06:55 | Outpatient (CLI) | payer OTHER, SELFPAY ==
[2020-05-28 13:09] VITALS: BMI 25.5
--- NOTE | 2020-09-10 08:41 | TELEMED_ITS ---
[facility] Telemed has confirmed receipt of a request for visit. This document confirms receipt of the order initiating the consult. To find the results of the consultation, please view the patient's reports for the scanned Telemed Consult.
== END ==
PROVIDERS: PCP Family Medicine Geriatric Medicine; Referring Provider Family Medicine Geriatric Medicine; Visit Provider Family Medicine Geriatric Medicine
DX: R25.9 Unspecified abnormal involuntary movements (principal)
CPT/HCPCS: 95819

== ENCOUNTER → 2020-11-02 14:21 | Outpatient (CLI) | payer OTHER, SELFPAY ==
[2020-05-28 13:09] VITALS: BMI 25.5
[2020-11-02 16:43] LABS: PSA,Total- Diagnostic 6.04 ng/mL (0.0-4.0)
== END ==
PROVIDERS: PCP Family Medicine Geriatric Medicine; Referring Provider Urology; Visit Provider Urology
DX: C61 Malignant neoplasm of prostate (principal)
CPT/HCPCS: 36415; 84153

== ENCOUNTER → 2020-11-25 16:51 | Outpatient (CLI) | payer OTHER, SELFPAY ==
[2020-05-28 13:09] VITALS: BMI 25.5
--- NOTE | 2020-11-25 16:54 | RAD_ITS ---
STUDY: X-RAY - LUMBAR SPINE REASON FOR EXAM: Male, 75 years old. LOW BACK PAIN TECHNIQUE: 3 view(s) of the lumbar spine were obtained. COMPARISON: 04/24/2017 FINDINGS: Normal lumbar lordosis. Mild dextroscoliosis centered at L3. There is a normal alignment of the vertebrae. There is multilevel endplate spondylosis of the lumbar vertebrae. There is multi-level degenerative disc disease with multi-level disc space narrowing. Facet hypertrophy in the lower lumbar spine consistent with degenerative disc disease. The soft tissue structures are unremarkable. RAD/Lumbar Spine 2 or 3 Views IMPRESSION: Mild dextro scoliosis with diffuse degenerative disc disease. MRI would be useful. Electronically Signed: Dale Holliday MD at 17:21 EDT Tel , Service support ,
--- NOTE | 2020-11-25 16:57 | RAD_ITS ---
STUDY: X-RAY CHEST REASON FOR EXAM: Male, 75 years old. COUGH TECHNIQUE: PA and lateral views of the chest. COMPARISON: 05/22/2018 FINDINGS: The lungs are clear and expanded. There is no demonstrated pleural abnormality. Normal size heart. Normal mediastinum and cheryle. Normal visualized pulmonary arteries. Normal visualized aortic arch and descending thoracic aorta. Normal visualized thoracic spine. Normal visualized ribs, clavicles, and shoulders. There is no demonstrated abnormality of the visualized soft tissue structures of the upper abdomen. RAD/Chest PA and Lateral IMPRESSION: Normal x-ray examination of the chest. Electronically Signed: Dale Holliday MD at 17:20 EDT Tel , Service support ,
== END ==
PROVIDERS: PCP Family Medicine Geriatric Medicine; Referring Provider Family Medicine Geriatric Medicine; Visit Provider Family Medicine Geriatric Medicine
DX: R05 Cough (principal); M54.5 Low back pain
CPT/HCPCS: 71046; 72100

== ENCOUNTER → 2020-11-26 10:15 | Outpatient (CLI) | payer OTHER, SELFPAY ==
[2020-05-28 13:09] VITALS: BMI 25.5
--- NOTE | 2020-11-26 10:19 | CT_ITS ---
STUDY: CT ABDOMEN AND PELVIS WITH CONTRAST REASON FOR EXAM: Male, 75 years old. ABD PAIN RADIATION DOSAGE (If Supplied By Facility): CTDIvol = ( 14.70 ) mGy, DLP = ( 615.22 ) mGycm TECHNIQUE: Transaxial images were obtained from the dome of the diaphragm to the symphysis pubis with oral contrast. Oral and amp; IV Readi-CAT and amp; 100mL Isovue-300 was administered. Sagittal and coronal images were reconstructed. Individualized dose optimization techniques were used for this CT. COMPARISON: None. FINDINGS: The visualized lung bases are unremarkable. The visualized portions of the heart are within normal limits. Normal liver. Normal gallbladder and extrahepatic biliary system. Normal spleen. Normal pancreas. Normal bilateral adrenal glands. 2 cm cyst in the midsection of the right kidney. Normal left kidney. Normal visualized stomach. Normal small intestine. Normal colon. There is non-visualization of the appendix. Normal abdominal aorta. Normal inferior vena cava. Normal retroperitoneum. Normal urinary bladder. There is enlargement of the prostate gland. Normal abdominal wall. Normal osseous structures. CT/Abdomen/Pelvis WITH Contrast IMPRESSION: Normal enhanced CT of the abdomen and pelvis. Electronically Signed: Dale Holliday MD at 11:50 EDT Tel , Service support ,
[2020-11-26 11:31] LABS: CREATININE FINGERSTICK < 0.6 mg/dL (0.70-1.30); EGFR FINGERSTICK > 60.0000 mL/min (>60)
== END ==
PROVIDERS: PCP Family Medicine Geriatric Medicine; Referring Provider Family Medicine Geriatric Medicine; Visit Provider Family Medicine Geriatric Medicine
DX: I45.10 Unspecified right bundle-branch block (principal); R10.9 Unspecified abdominal pain
CPT/HCPCS: 74177; Q9967

== ENCOUNTER → 2020-12-07 06:33 | Outpatient (CLI) | payer OTHER, SELFPAY ==
[2020-05-28 13:09] VITALS: BMI 25.5
--- NOTE | 2020-12-07 17:30 | MRI_ITS ---
STUDY: MRI LUMBAR SPINE WITHOUT CONTRAST REASON FOR EXAM: Male, 75 years old. SCOLIOSIS, LOW BACK PAIN TECHNIQUE: Standardized fat and water weighted pulse sequences were obtained in the sagittal and axial planes. COMPARISON: MRI lumbar spine without contrast 12/21/2016. CT abdomen and pelvis with contrast 11/26/2020. FINDINGS: T10-T11, T11-T12 and T12-L1: (Sagittal only). Normal endplates. Normal disc height, hydration and morphology. No ventral extradural defect. Normal central canal and bilateral intervertebral neural foramina. Normal lumbar lordosis. There is no substantial scoliosis. Normal conus medullaris that terminates at the lower L1 vertebral body level. L1-2: Mild disc space height narrowing with small posterior bulging disc. Normal central canal and bilateral lateral recesses. Normal facet joints. Normal bilateral intervertebral neural foramina. L2-3: Normal endplates. Minimal disc space height narrowing. Small posterior annular bulging disc. Normal central canal and bilateral lateral recesses. Normal facet joints. Bilateral intervertebral neural foramina. L3-4: Normal endplates. Mild disc space height narrowing. Mildly prominent posterior annular bulging disc is slightly eccentric to the left but unchanged. Moderate central canal stenosis with an AP canal diameter of 7 mm is unchanged. Normal bilateral lateral recesses. Normal facet joints. Normal bilateral intervertebral neural foramina. Mild increase in size and slightly ovoid T1 hypointense lesion in the left posterior superior corner of the L4 vertebral body. This corresponds to a small area of sclerotic lesion seen on CT abdomen and pelvis of 11/26/2020. Correlation with bone scan may be helpful for further evaluation. L4-5: Normal endplates. Mild disc space height narrowing. Prominent posterior annular bulging disc has increased slightly. Increase posterior ligamenta flava hypertrophy. Pronounced central canal stenosis with an AP canal diameter of 3.7 mm, previously 5.5 mm. Normal bilateral lateral recesses. Mild to moderate bilateral degenerative facet arthropathy. Mild stenosis of the bilateral intervertebral neural foramina. L5-S1: Increase MODIC type II degenerative vertebral marrow fatty changes underneath the vertebral endplates. Pronounced disc space height narrowing is unchanged. Small posterior midline disc protrusion, previously posterior bulging disc. Mild central canal stenosis with an AP canal diameter of 10 mm. Normal bilateral lateral recesses. Normal facet joints. Moderate stenosis of the bilateral intervertebral neural foramina. Normal visualized sacral ala. Normal visualized paraspinous soft tissue structures. MRI/Spine Lumbar (Routine) IMPRESSION: 1. Pronounced central canal stenosis at L4-L5 disc space level with an AP canal diameter of 3.7 mm, previously 5.5 mm due to increase prominence of the posterior annular bulging disc, developmentally short pedicles and increase posterior ligamenta flava hypertrophy. 2. Moderate central canal stenosis at L3-L4 disc space level with an AP canal diameter of 7 mm is unchanged. 3. Mild increase in size of slightly ovoid T1 hypointense lesion in the left posterior superior corner of the L4 vertebral body. This corresponds to a sclerotic lesion on CT abdomen and pelvis of 11/26/2020. Recommend bone scan for further evaluation. 4. No MRI evidence of lumbar extruded disc fragment. 5. Small L5-S1 posterior midline disc protrusion, previously posterior bulging disc. Moderate stenosis of the bilateral intervertebral neural foramina are unchanged. Electronically Signed: Denny He MD at 10:04 EDT , Service support ,
--- NOTE | 2020-12-07 19:43 | STRESSREP ---
Stress Test Report Exercise myocardial perfusion stress test. 75-year-old man with a history of chest pain. Stress protocol: Resting EKG demonstrates sinus bradycardia with a rate of 55 bpm and an incomplete right bundle branch block. Resting blood pressure is 130/82 mmHg. The patient exercised according to the regular Vince protocol for a total duration of 5 minutes and 32 seconds. The maximum heart rate attained was 1 and 34 bpm which was 93% max infected heart rate the maximum workload was 7 metabolic equivalents. At rest there were no ST or T wave changes noted suggest ischemia peak exercise upsloping ST changes only were noted with did not meet the criteria for ischemia. No clinical angina was noted. Myocardial perfusion protocol. 11.9 mCi of technetium 99m sestamibi was injected at rest. The patient exercised according to regular Vince protocol for 5-1/2 minutes and at peak exercise 36.0 mCi of technetium 99m sestamibi was injected stress images were obtained stress and rest images were reconstructed and compared in the short axis vertical long and horizontal long axis. Gated images were also obtained per Perfusion SPECT analysis: Review of the stress protocol images demonstrate normal uptake of tracer noted in all areas of the myocardium. The resting images similarly demonstrate normal uptake of tracer noted in all areas of the myocardium. No areas of reversibility are noted to suggest ischemia. Gated SPECT analysis: The gated ejection fraction is 61%. Conclusion: Normal exercise myocardial perfusion stress test at a moderate workload. Preserved ejection fraction.
== END ==
PROVIDERS: PCP Family Medicine Geriatric Medicine; Referring Provider Family Medicine Geriatric Medicine; Visit Provider Family Medicine Geriatric Medicine
DX: M41.9 Scoliosis, unspecified (principal); I45.10 Unspecified right bundle-branch block; R07.9 Chest pain, unspecified
CPT/HCPCS: 72148; 78452; 93017; A9500; A4216

== ENCOUNTER → 2020-12-22 15:02 | Outpatient (CLI) | payer OTHER, SELFPAY ==
[2020-05-28 13:09] VITALS: BMI 25.5
[2020-12-27 16:09] LABS: QNTFERON TB Mitogen Value > 10.00 IU/mL (.); QNTFERON TB Nil Value 0.04 IU/mL (.); QNTFERON TB1+ Ag Value 0.02 IU/mL (.); QNTFERON TB2+ Ag Value 0.05 IU/mL (.)
[2020-12-27 16:26] LABS: QNTIFERON TB Positive Criteria Negative (Negative)
== END ==
PROVIDERS: PCP Family Medicine Geriatric Medicine; Visit Provider Dermatology
DX: L40.0 Psoriasis vulgaris (principal); L64.8 Other androgenic alopecia; Z79.899 Other long term (current) drug therapy
CPT/HCPCS: 36415; 86480

== ENCOUNTER → 2021-01-10 09:24 | Outpatient (CLI) | payer OTHER, SELFPAY ==
[2020-05-28 13:09] VITALS: BMI 25.5
--- NOTE | 2021-01-10 09:29 | NM_ITS ---
CLINICAL: Male, 75 years old. LOW BACK PAIN AND LEFT ARM AND SHOULDER PAIN -- L4 LESION SEEN ON MRI AND CT -- NO HISTORY OF CANCER WHOLE BODY NUCLEAR BONE SCAN TECHNIQUE: Following the IV administration of mCi of Tc MDP, whole body bone imaging was performed with a gamma camera following a three hour delay. COMPARISON STUDIES : NM - None. CR - Not available for review at this time. CT - 11/26/2020 MR - 12/07/2020 US - Not available for review at this time. FINDINGS: There is focally increased uptake within the anterolateral left sixth rib and the L4 vertebral body corresponding sclerotic area seen on CT worrisome for blastic metastases. Some increased uptake is seen in the sternoclavicular joints, acromioclavicular joints, glenohumeral joints, hip joints, knee joints consistent with arthritis. 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 Electronically Signed: Dale Holliday MD at 14:04 EDT Tel , Service support ,
== END ==
PROVIDERS: PCP Family Medicine Geriatric Medicine; Referring Provider Family Medicine Geriatric Medicine; Visit Provider Family Medicine Geriatric Medicine
DX: C79.51 Secondary malignant neoplasm of bone (principal)
CPT/HCPCS: 78306; A9503

== ENCOUNTER → 2021-01-26 07:54 | Outpatient (CLI) | payer OTHER, SELFPAY ==
--- NOTE | 2021-01-26 07:56 | CT_ITS ---
STUDY: CT CHEST WITHOUT CONTRAST REASON FOR EXAM: Male, 75 years old. POSSIBLE LESION LEFT 6TH RIB -- NO CONTRAST RADIATION DOSAGE (If Supplied By Facility): CTDIvol = ( 7.43 ) mGy, DLP = ( 291.99 ) mGycm TECHNIQUE: Transaxial imaging was performed without the administration of intravenous contrast material. Multiplanar coronal and sagittal images were reformatted. Individualized dose optimization techniques were used for this CT. COMPARISON: None. FINDINGS: Diffuse heterogeneous enlargement of the left lobe of the thyroid with a substernal extension suggestive of a goitrous change. Prominence of the isthmus. The lungs are normal. There is no demonstrated pleural abnormality. There are calcifications of the coronary arteries. Normal mediastinum. Normal hilar regions. Normal unenhanced pulmonary arteries. Normal aorta arch and descending thoracic aorta. There are mild degenerative changes of the thoracic spine. No rib lesion is seen. Small hiatal hernia. The patient is status post cholecystectomy CT/Chest without Contrast IMPRESSION: Heterogeneous enlargement of left lobe of the thyroid. No bony lesion is seen. Electronically Signed: Eder Romano MD at 15:33 EDT , Service support ,
== END ==
PROVIDERS: PCP Family Medicine Geriatric Medicine; Referring Provider Internal Medicine Hematology & Oncology; Visit Provider Internal Medicine Hematology & Oncology
DX: M99.88 Other biomechanical lesions of rib cage (principal)
CPT/HCPCS: 71250

== ENCOUNTER → 2021-02-09 10:26 | Outpatient (CLI) | payer OTHER, SELFPAY ==
[2021-02-09 12:19] LABS: Absolute Lymphocyte Count 1.21 X10^3/uL (0.83-4.51); Absolute Neutrophil Count 1.1 X10^3/uL (2.0-7.7); Basophil# 0.01 X10^3/uL; Basophil% 0.3 % (0-1); Eosinophils% 3.3 % (0-5); Hematocrit 45.8 % (40-54); Hemoglobin 14.9 g/dL (13.0-16.5); Lymphocyte # 1.21 X10^3/ul (0.83-4.51); Lymphocyte % 40.1 % (19-41); Mean Corp Hgb Conc 32.5 g/dL (32-36); Mean Corpuscular Hgb 31.4 pg (27.0-32.0); Mean Corpuscular Volume 96.6 fL (80-94); Mean Platelet Vol. 9.9 fl (6.2-12.0); Monocyte# 0.61 X10^3/uL; Monocyte% 20.2 % (0-10); NRBC Flagged by Analyzer 0 % (0-5); Neutrophil # 1.09 X10^3/uL (2.7-7.7); Neutrophil % 36.1 % (47-70); Platelet Count 144 K/mm3 (150-450); RBC Distribution Width CV 13.8 % (11.6-14.6); RBC Distribution Width SD 49.7 fl (35.1-43.9); Red Blood Count 4.74 M/mm3 (4.6-6.2)
[2021-02-09 12:27] LABS: Vitamin D,25 Hydroxy 24.2 ng/mL
[2021-02-09 12:35] LABS: ALB/GLOB Ratio 0.9 RATIO (0.9-2.4); AST(SGOT) 19 U/L (15-37); Alanine Aminotransfer ALT/SGPT 27 U/L (16-61); Albumin, Serum 3.6 g/dL (3.2-5.0); Alkaline Phosphatase 84 U/L (45-117); Anion Gap 5 (5-15); BUN 16 mg/dL (7-18); Calcium,Total 9.3 mg/dL (8.5-10.1); Chloride 105 mmol/L (98-107); Creatinine, Serum 1.33 mg/dL (0.70-1.30); EST Glomerular Filtration Rate 55 mL/min (>60); Est Glom Filt Rate - Afr Amer 67 mL/min (>60); Globulin 4.1 g/dL (2.2-4.2); Glucose 98 mg/dL (74-106); Potassium 4.5 mmol/L (3.5-5.1); Protein, Total 7.7 g/dL (6.4-8.2); Sodium Level 138 mmol/L (136-145); Thyroid Stim Hormone (TSH) 0.82 uIU/mL (0.358-3.74)
== END ==
PROVIDERS: PCP Family Medicine Geriatric Medicine; Visit Provider Family Medicine Geriatric Medicine
DX: E11.9 Type 2 diabetes mellitus without complications (principal); I10 Essential (primary) hypertension; E23.6 Other disorders of pituitary gland; E55.9 Vitamin D deficiency, unspecified
CPT/HCPCS: 36415; 80053; 82306; 84403; 84443; 85025

== ENCOUNTER 2021-05-23 08:19 | Outpatient (CLI) | payer OTHER, SELFPAY ==
--- NOTE | 2021-05-23 08:23 | NM_ITS ---
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 WHOLE BODY 99m Tc MDP RADIONUCLIDE BONE SCINTIGRAPHY COMPARISON: Previous whole body bone scintigraphy study dated 01/10/2021 FINDINGS: Following the intravenous administration of 26.0 mCi of 99m Tc MDP, whole body bone images reveal: 1. Increased radiopharmaceutical concentration is persistently identified in the left anterolateral sixth rib, left proximal humeral metaphysis. 2. Enhanced uptake is noted in the acromioclavicular and sternoclavicular compartments of both shoulders, glenohumeral compartment of the right shoulder, mid cervical spine posteriorly on the right, fifth lumbar vertebra posteriorly on the right, the right anterior sacrum, right hip, the right knee, right forefoot, bilateral wrists and hands. 3. The remaining skeletal structures are scintigraphically unremarkable with normal-appearing renal images and urinary bladder activity identified. Facilitated tracer distribution is visualized in the greater trochanteric aspect of the right proximal femur most consistent with periostitis and/or trochanteric bursitis. NM/Bone Scan Whole Body IMPRESSION: 1. The increase in radiopharmaceutical concentration identified in the left anterolateral sixth rib and left proximal humerus may be further investigated with plain film radiography in the setting of known prostate carcinoma. 2. Degenerative arthritis appears currently expressed in the bilateral shoulders, cervical and lumbar spine, sacrum, right hip, the right knee, right forefoot, both wrist articulations, right and left hands. 3. Overall compared to the previous whole body bone scintigraphy study dated 01/10/2021, there is no significant interval change. No current typical scintigraphic evidence of diffuse, multifocal axial skeletal metastatic disease is encountered on the present examination. Electronically Signed: Dale Go DO at 22:38 EST Tel , Service support ,
--- NOTE | 2021-05-23 13:00 | MRI_ITS ---
STUDY: MR Spine Lumbar W/O Contrast 05/23/2021 2:42 PM REASON FOR EXAM: Male, 76 years old. Back pain Technologist Notes MRI LUMBAR 12/07/20 AND BONE SCAN 05/23/21. LOW BACK PAIN. DIAGNOSED WITH PROSTATE CANCER ABOUT 2 YEARS AGO ABNORMAL SCAN TECHNIQUE: MR Spine Lumbar W/O Contrast Standardized fat and water weighted pulse sequences were obtained. COMPARISON: Dec 07 2020 5:18pm report and images. Bone scan images only no report from 05.23.21. FINDINGS: T12-L1: Normal endplates. Normal disc height, hydration and morphology. Normal bilateral facet joints. Normal central canal and bilateral lateral recesses. Normal bilateral intervertebral neural foramina. Normal lumbar lordosis. There is no substantial scoliosis. Normal conus medullaris that terminates at the L1. L1-2: Loss of intervertebral disc height. There is endplate spondylosis of the vertebral body. Normal central canal and intervertebral neuroforamina. There is bilateral facet arthropathy. There is bilateral ligamentum flavum thickening. L2-3: Loss of intervertebral disc height. There is endplate spondylosis of the vertebral body. Normal central canal and intervertebral neuroforamina. There is bilateral facet arthropathy. Mild anterior disc bulge. L3-4: Loss of intervertebral disc height. There is endplate spondylosis of the vertebral body. Normal central canal and intervertebral neuroforamina. There is bilateral facet arthropathy. There is bilateral ligamentum flavum thickening. Broad-based disc bulge. Findings are causing mild spinal stenosis. L4-5: Loss of intervertebral disc height. There is endplate spondylosis of the vertebral body. There is bilateral facet arthropathy. Bilateral neural foraminal stenosis. Compression of exiting nerve roots. There is bilateral ligamentum flavum thickening. Broad-based disc bulge. Severe spinal stenosis. Prior low T1 signal in the superior endplate of L4. This demonstrates increased T2 signal. L5-S1: Loss of intervertebral disc height. There is endplate spondylosis of the vertebral body. There is bilateral facet arthropathy. Bilateral neural foraminal stenosis. Compression of exiting nerve roots. Discogenic endplate changes. There is bilateral ligamentum flavum thickening. No significant spinal stenosis. Posterior disc herniation. Normal visualized sacral ala. Normal visualized paraspinous soft tissue structures. MRI/Spine Lumbar (Routine) IMPRESSION: Multilevel degenerative changes, as described above. Disc herniation at L5-S1. Degenerative findings are causing severe spinal stenosis at L4-5. Stable lesion in the superior endplate of L4. This may be a metastatic focus. Electronically Signed: Keyur Madrigal MD at 15:12 EST , Service support ,
== END 2021-05-23 23:59 | disposition short-term general hospital (02) ==
LOC: NM 08:20
PROVIDERS: PCP Family Medicine Geriatric Medicine; Referring Provider Internal Medicine Hematology & Oncology; Visit Provider Internal Medicine Hematology & Oncology
DX: M89.9 Disorder of bone, unspecified (principal)
CPT/HCPCS: 72148; 78306; A9503

== ENCOUNTER 2021-08-10 09:33 | Outpatient (CLI) | payer OTHER, SELFPAY ==
[2021-08-10 12:32] LABS: Absolute Lymphocyte Count 1.17 X10^3/uL (0.83-4.51); Absolute Neutrophil Count 1.2 X10^3/uL (2.0-7.7); Basophil# 0.02 X10^3/uL; Basophil% 0.6 % (0-1); Eosinophil# 0.15 X10^3/uL; Eosinophils% 4.7 % (0-5); Hematocrit 46.9 % (40-54); Hemoglobin 15.2 g/dL (13.0-16.5); Lymphocyte # 1.17 X10^3/ul (0.83-4.51); Lymphocyte % 36.8 % (19-41); Mean Corp Hgb Conc 32.4 g/dL (32-36); Mean Corpuscular Hgb 31.8 pg (27.0-32.0); Mean Corpuscular Volume 98.1 fL (80-94); Mean Platelet Vol. 10.2 fl (6.2-12.0); Monocyte# 0.62 X10^3/uL; Monocyte% 19.5 % (0-10); NRBC Flagged by Analyzer 0 % (0-5); Neutrophil # 1.21 X10^3/uL (2.7-7.7); Neutrophil % 38.1 % (47-70); Platelet Count 144 K/mm3 (150-450); RBC Distribution Width CV 13.8 % (11.6-14.6); RBC Distribution Width SD 50.3 fl (35.1-43.9); Red Blood Count 4.78 M/mm3 (4.6-6.2); White Blood Count 3.2 K/mm3 (4.4-11.0)
[2021-08-10 12:55] LABS: ALB/GLOB Ratio 0.9 RATIO (0.9-2.4); AST(SGOT) 24 U/L (15-37); Alanine Aminotransfer ALT/SGPT 31 U/L (16-61); Albumin, Serum 3.7 g/dL (3.2-5.0); Alkaline Phosphatase 77 U/L (45-117); Anion Gap 4 (5-15); BUN 14 mg/dL (7-18); BUN/Creat Ratio 10.6 RATIO (10-20); Calcium,Total 8.9 mg/dL (8.5-10.1); Chloride 108 mmol/L (98-107); Creatinine, Serum 1.32 mg/dL (0.70-1.30); EST Glomerular Filtration Rate 56 mL/min (>60); Est Glom Filt Rate - Afr Amer 67 mL/min (>60); Glucose 114 mg/dL (74-106); Potassium 4.6 mmol/L (3.5-5.1); Protein, Total 7.7 g/dL (6.4-8.2); Sodium Level 138 mmol/L (136-145); Thyroid Stim Hormone (TSH) 0.65 uIU/mL (0.358-3.74)
== END 2021-08-10 23:59 | disposition home or self-care (01) ==
LOC: POLAB3 09:34
PROVIDERS: PCP Family Medicine Geriatric Medicine; Visit Provider Family Medicine Geriatric Medicine
DX: E55.9 Vitamin D deficiency, unspecified (principal); E23.6 Other disorders of pituitary gland; I10 Essential (primary) hypertension
CPT/HCPCS: 36415; 80053; 82306; 84403; 84443; 85025

== ENCOUNTER → 2021-11-24 | Outpatient (CLI) | payer OTHER, SELFPAY ==
--- NOTE | 2021-11-24 10:00 | NM_ITS ---
CLINICAL: Male, 76 years old. F/U ABNORMAL BONE SCAN WITH H/O PROSTATE CANCER WHOLE BODY NUCLEAR BONE SCAN TECHNIQUE: Following the IV administration of 24.6 mCi of Tc MDP, whole body bone imaging was performed with a gamma camera following a three hour delay. COMPARISON STUDIES : Comparison is made with nuclear medicine bone scan dated 05/23/2021. FINDINGS: Mild increased radiopharmaceutical uptake in the left anterolateral sixth rib as well as the left proximal humeral metaphysis. Stable mild uptake at the level of both acromioclavicular joints and shoulder joints as well as both knees suggestive of degenerative change. NM/Bone Scan Whole Body IMPRESSION: Stable increased radiopharmaceutical uptake in the left anterior lateral aspect of the sixth rib and left proximal humerus. There has been essentially no change. Electronically Signed: Eder Romano MD at 8:15 EDT ,
== END | disposition home or self-care (01) ==
LOC: NM 10:00
PROVIDERS: PCP Family Medicine Geriatric Medicine; Referring Provider Internal Medicine Hematology & Oncology; Visit Provider Internal Medicine Hematology & Oncology
DX: C61 Malignant neoplasm of prostate (principal); M99.88 Other biomechanical lesions of rib cage; M89.9 Disorder of bone, unspecified
CPT/HCPCS: 78306; A9503

== ENCOUNTER → 2022-02-15 | Outpatient (CLI) | payer OTHER, SELFPAY ==
[2022-02-15 13:38] LABS: Absolute Lymphocyte Count 1.26 X10^3/uL (0.83-4.51); Absolute Neutrophil Count 1.5 X10^3/uL (2.0-7.7); Basophil# 0.02 X10^3/uL; Basophil% 0.6 % (0-1); Eosinophil# 0.21 X10^3/uL; Eosinophils% 5.9 % (0-5); Hematocrit 45.6 % (40-54); Hemoglobin 14.9 g/dL (13.0-16.5); Lymphocyte # 1.26 X10^3/ul (0.83-4.51); Lymphocyte % 35.6 % (19-41); Mean Corp Hgb Conc 32.7 g/dL (32-36); Mean Corpuscular Hgb 32.5 pg (27.0-32.0); Mean Corpuscular Volume 99.6 fL (80-94); Mean Platelet Vol. 10.2 fl (6.2-12.0); Monocyte# 0.52 X10^3/uL; Monocyte% 14.7 % (0-10); NRBC Flagged by Analyzer 0 % (0-5); Neutrophil # 1.52 X10^3/uL (2.7-7.7); Neutrophil % 42.9 % (47-70); Platelet Count 141 K/mm3 (150-450); RBC Distribution Width CV 13.9 % (11.6-14.6); RBC Distribution Width SD 51.5 fl (35.1-43.9); Red Blood Count 4.58 M/mm3 (4.6-6.2); White Blood Count 3.5 K/mm3 (4.4-11.0)
[2022-02-15 14:27] LABS: Vitamin D,25 Hydroxy 31.6 ng/mL
[2022-02-15 14:30] LABS: AST(SGOT) 22 U/L (15-37); Alanine Aminotransfer ALT/SGPT 33 U/L (16-61); Albumin, Serum 3.7 g/dL (3.2-5.0); Alkaline Phosphatase 86 U/L (45-117); Anion Gap 5 (5-15); BUN 16 mg/dL (7-18); BUN/Creat Ratio 11.8 RATIO (10-20); Calcium,Total 9.2 mg/dL (8.5-10.1); Chloride 108 mmol/L (98-107); Creatinine, Serum 1.36 mg/dL (0.70-1.30); EST Glomerular Filtration Rate 54 mL/min (>60); Est Glom Filt Rate - Afr Amer 65 mL/min (>60); Globulin 3.8 g/dL (2.2-4.2); Glucose 101 mg/dL (74-106); Potassium 4.3 mmol/L (3.5-5.1); Protein, Total 7.5 g/dL (6.4-8.2); Sodium Level 140 mmol/L (136-145); Thyroid Stim Hormone (TSH) 0.76 uIU/mL (0.358-3.74)
== END | disposition home or self-care (01) ==
LOC: POLAB3 09:05
PROVIDERS: PCP Family Medicine Geriatric Medicine; Visit Provider Family Medicine Geriatric Medicine
DX: I10 Essential (primary) hypertension (principal); E23.6 Other disorders of pituitary gland; E11.9 Type 2 diabetes mellitus without complications; E55.9 Vitamin D deficiency, unspecified
CPT/HCPCS: 36415; 80053; 82306; 84403; 84443; 85025

== ENCOUNTER 2022-04-26 10:24 | Emergency (ER) | payer OTHER, SELFPAY ==
[2022-04-26 10:24] VITALS: BP 137/113; PULSE 69; RESP 18; TEMP 35.9; O2SAT 100; BMI 25.7
--- NOTE | 2022-04-26 11:43 | EX.ED.DYSGE1 ---
HPI History of Present Illness Chief Complaint: Cough Informant: patient Onset/Context/Timing Onset: Days (2) Context: Gradual Onset Timing: Continuous Quality: Yellow Location: Sputum Worsened by: Nothing Relieved by: NyQuil Narrative Narrative: Patient presents with a cough that has been getting worse over the past 2 days. Patient states she is coughing up some yellow sputum. Patient states NyQuil has been helping with the cough. Patient states nothing makes it worse. Patient states that last night he fell. Patient is unsure if he had a syncopal episode. Patient states he got up in the middle the night to urinate and then remembers waking up on the floor. Patient denies any chest pain or palpitations. Patient denies any shortness of breath. Patient admits to some rhinorrhea. Patient denies any headaches. [facility] Medical History Arthritis BPH (benign prostatic hyperplasia) Chronic kidney disease, stage 1 Hyperlipidemia Hypertension Hypogonadism Prostate cancer Psoriasis Right bundle branch block Home Medications aspirin 81 mg chewable tablet 81 mg PO DAILY@0800 12/10/16 [History Last Taken Unknown] tamsulosin 0.4 mg capsule 0.4 mg PO DAILY 12/10/16 [History Last Taken Unknown] allergy shot 1 vial IM QWEEK 04/17/18 [History Last Taken Unknown] atorvastatin 10 mg tablet 40 mg PO DAILY 05/09/19 [History Last Taken Unknown] multivitamin (Daily Multi-Vitamin tablet) 1 tab PO DAILY 05/09/19 [History Last Taken Unknown] Allergy/AdvReac Type Severity Reaction Status Date / Time No Known Allergies Allergy Verified 04/26/22 10:24 Family History Brother Cancer Prostate cancer Surgical History History of appendectomy History of appendectomy History of gallbladder disease Hx of cholecystectomy Social History Smoking Status: Never smoker second hand exposure: No alcohol intake: never substance use type: does not use dante/congregational: [employer] seatbelt use: always do you feel safe at home: Yes ROS ROS ED Constitutional Constitutional ED: Denies chills or fever(s) Eyes Eyes: Denies blurry vision or change in vision ENT ENT ED: Reports rhinorrhea; Denies sore throat Cardiovascular Cardiovascular: Denies chest pain or palpitations Respiratory/Chest Respiratory/Chest: Reports cough and sputum; Denies dyspnea Gastrointestinal Gastrointestinal: Denies nausea or vomiting Genitourinary Genitourinary ED: Denies dysuria or hematuria Musculoskeletal Musculoskeletal: Reports back pain; Denies neck pain Integumentary Denies abscess or rash Neurologic Neurologic: Denies headache(s) or weakness Allergic/Immunologic Allergic/Immunologic ED: Denies mouth swelling or urticaria EXAM Physical Exam Const Vital Signs: 04/26/22 10:24 04/26/22 10:44 04/26/22 12:37 Temperature 96.7 F L Temperature Source Temporal Pulse Rate 69 Pulse Rate [Lying] 55 L Pulse Rate [Sitting (for 1 minute prior to obtaining)] 67 Pulse Rate [Standing (for 1 minute prior to obtaining)] Respiratory Rate 18 Respiratory Effort Normal Respiratory Pattern Blood Pressure 137/113 H Blood Pressure [Lying] 129/65 H Blood Pressure [Sitting (for 1 minute prior to obtaining)] 125/71 H Blood Pressure [Standing (for 1 minute prior to obtaining)] Blood Pressure Mean 121 Blood Pressure Mean [Lying] 86 Blood Pressure Mean [Sitting (for 1 minute prior to obtaining)] 89 Blood Pressure Mean [Standing (for 1 minute prior to obtaining)] Pulse Ox 100 Oxygen Delivery Method Room Air 04/26/22 12:37 04/26/22 12:41 04/26/22 12:10 Temperature Temperature Source Pulse Rate 67 72 Pulse Rate [Lying] Pulse Rate [Sitting (for 1 minute prior to obtaining)] Pulse Rate [Standing (for 1 minute prior to obtaining)] 71 Respiratory Rate 14 18 Respiratory Effort Respiratory Pattern Normal Blood Pressure 125/71 H Blood Pressure [Lying] Blood Pressure [Sitting (for 1 minute prior to obtaining)] Blood Pressure [Standing (for 1 minute prior to obtaining)] 117/76 Blood Pressure Mean 89 Blood Pressure Mean [Lying] Blood Pressure Mean [Sitting (for 1 minute prior to obtaining)] Blood Pressure Mean [Standing (for 1 minute prior to obtaining)] 89 Pulse Ox 100 Oxygen Delivery Method Room Air Positive well nourished and well developed General Appearance ED: well developed and NAD HEENT Reports moist mucous membranes Neck supple and no JVD Resp normal respiratory effort and clear to auscultation bilaterally Cardio regular rate, regular rhythm and no murmurs GI normal to inspection, nondistended, normoactive bowel sounds and non-tender Palpation: soft Extremity normal to inspection General Extremety ED: Negative for edema or tenderness General Extremity: Negative for edema Neuro oriented x3, CN's II-XII intact bilaterally and no sensory deficits noted Sensorium / Orientation: alert Motor Exam: strength 5/5 throughout Psych mental status grossly normal Skin no rashes or lesions noted MDM MDM MDM Narrative Medical decision making narrative: Patient was given a DuoNeb aerosol here. EKG was obtained. On my interpretation, it showed a sinus bradycardia with a rate of 58. MD interval, QRS interval, and QTc intervals were all normal. [place] was normal. There are no acute ST or T wave changes. There is an incomplete right bundle branch block pattern noted. This was unchanged compared to previous EKG dated 12/07/2020. CBC shows a white blood cell count of 2.6. Comprehensive metabolic profile was within normal limits. High-sensitivity troponin was normal. PA and lateral chest x-ray was obtained. There are 2 views. On my interpretation, lung weinstein are clear. There is normal cardiac silhouette. Bony thorax is normal. There is no acute process noted. Radiologist also interpreted the x-ray and agrees. COVID-19 rapid antigen was obtained and was negative. Influenza A and influenza B rapid antigens were obtained and were negative. Patient was advised of his findings. Patient was advised that this is most likely a viral illness. Patient was instructed to drink plenty of fluids. Patient was instructed to continue NyQuil as needed. Patient was instructed to follow-up with his primary care physician in 5 to 7 days. Patient and family understood and were agreeable with the plan. All questions were answered. Lab Data Attestation: I reviewed the patient's lab results. Labs: Laboratory Results - last 24 hr 04/26/22 04/26/22 12:03 12:03 WBC 2.6 L RBC 4.88 Hgb 15.5 Hct 47.1 MCV 96.5 H MCH 31.8 MCHC 32.9 RDW Std Deviation 48.8 H RDW Coeff of Aryan 13.7 Plt Count 138 L MPV 9.4 Immature Gran % (Auto) 0.800 Neut % (Auto) 33.8 L Lymph % (Auto) 36.5 [place] % (Auto) 26.2 H Eos % (Auto) 1.9 Baso % (Auto) 0.8 Absolute Neuts (auto) 0.9 L Absolute Lymphs (auto) 0.95 Nucleated RBC % 0 Differential Comment SCANNED Diff Path Review May foll Sodium 137 Potassium 4.4 Chloride 105 Carbon Dioxide 30.0 Anion Gap 2 L BUN 13 Creatinine 1.29 Estim Creat Clear Calc 48.73 Est GFR (MDRD) Af Amer 69 Est GFR (MDRD) Non-Af 57 L BUN/Creatinine Ratio 10.1 Glucose 99 Calcium 8.9 Total Bilirubin 0.60 AST 27 ALT 30 Alkaline Phosphatase 66 Troponin I High Sens 10 Total Protein 7.8 Albumin 3.4 Globulin 4.4 H Albumin/Globulin Ratio 0.8 L Radiography Diagnostic Testing: Clinical Impression(s) from Imaging Studies Chest X-Ray 04/26/22 12:17 IMPRESSION: No acute abnormality is seen. Electronically Signed: Eder Romano MD at 13:08 EST , EKG Initial EKG: Attestation: I personally reviewed and interpreted this EKG as follows: Interpretation: Sinus Rhythm (58), No Acute Injury Pattern and RBBB (Incomplete) Prior EKG tracings: available for review Prior: Unchanged Discharge Plan Triage Chief Complaint: Cough ED Provider: Tristin Santiago Dx/Rx/DC Orders Prescriptions: No Action allergy shot 1 vial IM QWEEK multivitamin [Daily Multi-Vitamin] Tablet 1 tab PO DAILY atorvastatin 10 mg tablet 40 mg PO DAILY tamsulosin 0.4 MG capsule 0.4 mg PO DAILY aspirin 81 MG tablet,chewable 81 mg PO DAILY@0800 Primary Care Provider: Aashish Bhakta Chi Referrals: Aashish Bhakta Chi, MD [Primary Care Provider] -
--- NOTE | 2022-04-26 11:46 | EKG12_ITS ---
Test Reason : SOB Blood Pressure : / mmHG Vent. Rate : 058 BPM Atrial Rate : 058 BPM P-R Int : 144 ms QRS Dur : 116 ms QT Int : 436 ms P-R-T Axes : 076 020 045 degrees QTc Int : 428 ms Sinus bradycardia with marked sinus arrhythmia Incomplete right bundle branch block Borderline ECG Confirmed by MIGUELANGEL FLETCHER, EARL ([id number]), publication editor KJ STODDARD ([id number]) on 04/28/2022 10:38:19 AM Referred By: Confirmed By:HOANG MEANS MD
[2022-04-26 12:10] VITALS: PULSE 72; RESP 18
[2022-04-26] MEDS: Ipratropium/Albuterol Sulfate 3 ML AMPUL.NEB INHALATION (12:12)
[2022-04-26 12:13] LABS: Absolute Lymphocyte Count 0.95 X10^3/uL (0.83-4.51); Absolute Neutrophil Count 0.9 X10^3/uL (2.0-7.7); Basophil# 0.02 X10^3/uL; Basophil% 0.8 % (0-1); Eosinophil# 0.05 X10^3/uL; Eosinophils% 1.9 % (0-5); Hematocrit 47.1 % (40-54); Hemoglobin 15.5 g/dL (13.0-16.5); Lymphocyte # 0.95 X10^3/ul (0.83-4.51); Lymphocyte % 36.5 % (19-41); Mean Corp Hgb Conc 32.9 g/dL (32-36); Mean Corpuscular Hgb 31.8 pg (27.0-32.0); Mean Corpuscular Volume 96.5 fL (80-94); Mean Platelet Vol. 9.4 fl (6.2-12.0); Monocyte# 0.68 X10^3/uL; Monocyte% 26.2 % (0-10); NRBC Flagged by Analyzer 0 % (0-5); Neutrophil # 0.88 X10^3/uL (2.7-7.7); Neutrophil % 33.8 % (47-70); POSITIVE DIFFERENTIAL YES; Platelet Count 138 K/mm3 (150-450); RBC Distribution Width CV 13.7 % (11.6-14.6); RBC Distribution Width SD 48.8 fl (35.1-43.9); Red Blood Count 4.88 M/mm3 (4.6-6.2); White Blood Count 2.6 K/mm3 (4.4-11.0)
[2022-04-26 12:15] LABS: Differential Indicated SCAN CRITERIA MET
--- NOTE | 2022-04-26 12:17 | RAD_ITS ---
STUDY: X-RAY CHEST REASON FOR EXAM: Male, 76 years old. Cough TECHNIQUE: PA and lateral views of the chest. COMPARISON: Comparison is made with prior study 11/25/2020. FINDINGS: The lungs are clear and expanded. There is no demonstrated pleural abnormality. Normal size heart. Normal mediastinum and cheryle. Normal visualized pulmonary arteries. There is atherosclerotic tortuosity of the aortic arch and descending thoracic aorta. Normal visualized thoracic spine. Normal visualized ribs, clavicles, and shoulders. There is no demonstrated abnormality of the visualized soft tissue structures of the upper abdomen. RAD/Chest PA and Lateral IMPRESSION: No acute abnormality is seen. Electronically Signed: Eder Romano MD at 13:08 EST ,
[2022-04-26 12:29] LABS: ALB/GLOB Ratio 0.8 RATIO (0.9-2.4); AST(SGOT) 27 U/L (15-37); Alanine Aminotransfer ALT/SGPT 30 U/L (16-61); Albumin, Serum 3.4 g/dL (3.2-5.0); Alkaline Phosphatase 66 U/L (45-117); Anion Gap 2 (5-15); BUN 13 mg/dL (7-18); BUN/Creat Ratio 10.1 RATIO (10-20); Calcium,Total 8.9 mg/dL (8.5-10.1); Chloride 105 mmol/L (98-107); Creatinine, Serum 1.29 mg/dL (0.70-1.30); EST Glomerular Filtration Rate 57 mL/min (>60); Est Glom Filt Rate - Afr Amer 69 mL/min (>60); Estimated Creatinine Clearance 48.73 ml/min; Globulin 4.4 g/dL (2.2-4.2); Glucose 99 mg/dL (74-106); Potassium 4.4 mmol/L (3.5-5.1); Protein, Total 7.8 g/dL (6.4-8.2); Sodium Level 137 mmol/L (136-145); Troponin-I HS 10 pg/mL (3.0-78.0)
[2022-04-26 12:37] VITALS: BP 125/71; BP 129/65; PULSE 55; PULSE 67; RESP 14; O2SAT 100
[2022-04-26 12:41] VITALS: BP 117/76; PULSE 71
[2022-04-26 13:07] LABS: Differential Comment SCANNED
[2022-04-26 14:09] VITALS: RESP 16
[2022-04-26 14:16] VITALS: PULSE 79; RESP 15; O2SAT 99
[2022-04-28 14:23] LABS: Pathologist Review Reviewed
== END 2022-04-26 14:17 | disposition home or self-care (01) ==
PROVIDERS: Emergency Provider Emergency Medicine; PCP Family Medicine Geriatric Medicine; Visit Provider Emergency Medicine
DX: R05.9 Cough, unspecified (principal); R00.1 Bradycardia, unspecified; N18.1 Chronic kidney disease, stage 1; I12.9 Hypertensive chronic kidney disease with stage 1 through stage 4 chronic kidney disease, or unspecified chronic kidney disease; E78.5 Hyperlipidemia, unspecified
CPT/HCPCS: 71046; 80053; 84484; 85025; 87428; 93005; 94640; 99284; A4216

== ENCOUNTER → 2022-04-28 | Outpatient (CLI) | payer OTHER, SELFPAY ==
--- NOTE | 2022-04-28 10:25 | RAD_ITS ---
STUDY: X-RAY - THORACIC SPINE REASON FOR EXAM: Male, 76 years old. Mid back pain TECHNIQUE: 3 view(s) of the thoracic spine were obtained. COMPARISON: None. FINDINGS: Normal kyphosis of the thoracic spine. There is no substantial scoliosis. Normal thoracic vertebrae and endplates. Mild disc space narrowing throughout the thoracic spine. The soft tissue structures are unremarkable. RAD/Thoracic Spine 3 Views IMPRESSION: Mild degenerative changes, no acute findings Electronically Signed: Ryne Madison MD at 11:35 EST ,
== END | disposition home or self-care (01) ==
LOC: RAD 10:21
PROVIDERS: PCP Family Medicine Geriatric Medicine; Visit Provider Family Medicine Geriatric Medicine
DX: M54.6 Pain in thoracic spine (principal)
CPT/HCPCS: 72072

== ENCOUNTER → 2022-05-29 | Outpatient (CLI) | payer OTHER, SELFPAY ==
--- NOTE | 2022-05-29 08:58 | CDU_ITS ---
Reason For Study: Syncope Rt. Velocities/BP Lt. Velocities/BP Prox CCA 108.4/20 cm/sec. Prox CCA 112/24.3 cm/sec. Mid CCA 102.3/18.8 cm/sec. Mid CCA 104.7/22.5 cm/sec. Dist CCA 94.9/20 cm/sec. Dist CCA 95.5/20.6 cm/sec. Prox ICA 69.1/17.6 cm/sec. Prox ICA 70/18.8 cm/sec. Mid ICA 79/24.9 cm/sec. Mid ICA 81.4/23.7 cm/sec. Dist ICA 77.7/21.2 cm/sec. Dist ICA 74/22.5 cm/sec. Rt. ICA/CCA = 0.77. Lt. ICA/CCA = 0.78. Prox ECA 90/12.6 cm/sec. Prox ECA 82.7/13.3 cm/sec. Rt. Vert. 69.1/16.3 cm/sec. Lt. Vert. 54.4/12.6 cm/sec. Right Extracranial There is homogeneous, smooth atherosclerotic plaque noted in the right common carotid artery. There is intimal thickening but no significant atherosclerotic plaque noted in the right internal carotid artery. There is intimal thickening but no significant atherosclerotic plaque noted in the right external carotid artery. Antegrade flow is noted in the right vertebral artery. Left Extracranial There is homogeneous, smooth atherosclerotic plaque noted in the left common carotid artery. There is intimal thickening but no significant atherosclerotic plaque noted in the left internal carotid artery. There is homogeneous, smooth atherosclerotic plaque noted in the left external carotid artery. Antegrade flow is noted in the left vertebral artery. Procedure Carotid Duplex [id number]. This is a Carotid Duplex examination using B-mode, color flow and specral Doppler. Exam performed in department. VL/Carotid Duplex Ultrasound Interpretation Summary Normal right extracranial internal carotid. Normal left extracranial internal carotid. Patent and antegrade vertebrals bilaterally. Ordering Physician: Danielle Cota Referring Physician: Aashish Bhakta Chi Performed By: Hien Cartwright RVT
== END | disposition home or self-care (01) ==
LOC: CVS 08:50
PROVIDERS: PCP Family Medicine Geriatric Medicine; Referring Provider Physician Assistant Medical; Visit Provider Physician Assistant Medical
DX: I65.23 Occlusion and stenosis of bilateral carotid arteries (principal); R55 Syncope and collapse
CPT/HCPCS: 93880

== ENCOUNTER → 2022-08-17 | Outpatient (CLI) | payer OTHER, SELFPAY ==
[2022-08-17 12:15] LABS: Absolute Lymphocyte Count 1.37 X10^3/uL (0.83-4.51); Absolute Neutrophil Count 1.2 X10^3/uL (2.0-7.7); Basophil# 0.02 X10^3/uL; Basophil% 0.6 % (0-1); Eosinophil# 0.09 X10^3/uL; Eosinophils% 2.7 % (0-5); Hematocrit 49.2 % (40-54); Hemoglobin 15.5 g/dL (13.0-16.5); Lymphocyte # 1.37 X10^3/ul (0.83-4.51); Lymphocyte % 41.5 % (19-41); Mean Corp Hgb Conc 31.5 g/dL (32-36); Mean Corpuscular Hgb 31.3 pg (27.0-32.0); Mean Corpuscular Volume 99.2 fL (80-94); Mean Platelet Vol. 10.3 fl (6.2-12.0); Monocyte# 0.57 X10^3/uL; Monocyte% 17.3 % (0-10); NRBC Flagged by Analyzer 0 % (0-5); Neutrophil # 1.24 X10^3/uL (2.7-7.7); Neutrophil % 37.6 % (47-70); Platelet Count 154 K/mm3 (150-450); RBC Distribution Width CV 13.6 % (11.6-14.6); RBC Distribution Width SD 50.1 fl (35.1-43.9); Red Blood Count 4.96 M/mm3 (4.6-6.2); White Blood Count 3.3 K/mm3 (4.4-11.0)
[2022-08-17 12:28] LABS: Vitamin D,25 Hydroxy 30.8 ng/mL
[2022-08-17 13:00] LABS: ALB/GLOB Ratio 0.9 RATIO (0.9-2.4); AST(SGOT) 21 U/L (15-37); Alanine Aminotransfer ALT/SGPT 27 U/L (16-61); Albumin, Serum 3.8 g/dL (3.2-5.0); Alkaline Phosphatase 70 U/L (45-117); Anion Gap 2 (5-15); BUN 15 mg/dL (7-18); BUN/Creat Ratio 11.4 RATIO (10-20); Calcium,Total 9.4 mg/dL (8.5-10.1); Chloride 107 mmol/L (98-107); Creatinine, Serum 1.32 mg/dL (0.70-1.30); EST Glomerular Filtration Rate 56 mL/min (>60); Est Glom Filt Rate - Afr Amer 67 mL/min (>60); Globulin 4.1 g/dL (2.2-4.2); Glucose 97 mg/dL (74-106); Potassium 4.7 mmol/L (3.5-5.1); Protein, Total 7.9 g/dL (6.4-8.2); Sodium Level 137 mmol/L (136-145); Thyroid Stim Hormone (TSH) 0.84 uIU/mL (0.358-3.74)
== END | disposition home or self-care (01) ==
LOC: POLAB3 10:26
PROVIDERS: PCP Family Medicine Geriatric Medicine; Visit Provider Family Medicine Geriatric Medicine
DX: I10 Essential (primary) hypertension (principal); E55.9 Vitamin D deficiency, unspecified
CPT/HCPCS: 36415; 80053; 82306; 84443; 85025

== ENCOUNTER → 2022-08-31 | Outpatient (CLI) | payer OTHER, SELFPAY ==
[2022-08-31 10:39] LABS: PSA,Total- Diagnostic 5.82 ng/mL (0.0-4.0)
== END | disposition home or self-care (01) ==
PROVIDERS: PCP Family Medicine Geriatric Medicine; Referring Provider Urology; Visit Provider Urology
DX: R97.20 Elevated prostate specific antigen [PSA] (principal)
CPT/HCPCS: 36415; 84153

== ENCOUNTER → 2023-07-10 | Outpatient (CLI) | payer MEDICARE, OTHER, SELFPAY ==
[2023-07-10 11:02] LABS: Absolute Lymphocyte Count 1.14 X10^3/uL (0.83-4.51); Basophil# 0.02 X10^3/uL; Basophil% 0.5 % (0-1); Eosinophil# 0.07 X10^3/uL; Eosinophils% 1.8 % (0-5); Hematocrit 47.9 % (40-54); Hemoglobin 15.1 g/dL (13.0-16.5); Lymphocyte # 1.14 X10^3/ul (0.83-4.51); Lymphocyte % 29.8 % (19-41); Mean Corp Hgb Conc 31.5 g/dL (32-36); Mean Corpuscular Hgb 31.1 pg (27.0-32.0); Mean Corpuscular Volume 98.8 fL (80-94); Mean Platelet Vol. 9.7 fl (6.2-12.0); Monocyte# 0.58 X10^3/uL; Monocyte% 15.2 % (0-10); NRBC Flagged by Analyzer 0 % (0-5); Neutrophil # 2.01 X10^3/uL (2.7-7.7); Neutrophil % 52.7 % (47-70); Platelet Count 152 K/mm3 (150-450); RBC Distribution Width CV 13.6 % (11.6-14.6); RBC Distribution Width SD 50.1 fl (35.1-43.9); Red Blood Count 4.85 M/mm3 (4.6-6.2); White Blood Count 3.8 K/mm3 (4.4-11.0)
[2023-07-10 11:50] LABS: AST(SGOT) 20 U/L (15-37); Alanine Aminotransfer ALT/SGPT 24 U/L (16-61); Albumin, Serum 3.8 g/dL (3.2-5.0); Alkaline Phosphatase 67 U/L (45-117); Anion Gap 3 (5-15); BUN 17 mg/dL (7-18); BUN/Creat Ratio 12.3 RATIO (10-20); Bilirubin, Direct 0.23 mg/dL (0.00-0.30); Calcium,Total 9.2 mg/dL (8.5-10.1); Chloride 109 mmol/L (98-107); Cholesterol 151 mg/dL (200); Creatinine, Serum 1.38 mg/dL (0.70-1.30); EST Glomerular Filtration Rate 53 mL/min (>60); Est Glom Filt Rate - Afr Amer 64 mL/min (>60); Globulin 3.9 g/dL (2.2-4.2); Glucose 88 mg/dL (74-106); High Density Lipoprotein 63 mg/dL; PSA,Total - Annual Screen 6.44 ng/mL (0.00-4.00); Potassium 4.3 mmol/L (3.5-5.1); Protein, Total 7.7 g/dL (6.4-8.2); Sodium Level 138 mmol/L (136-145); Thyroid Stim Hormone (TSH) 0.66 uIU/mL (0.358-3.74); Triglycerides 39 mg/dL; Very Low Density Lipoprotein 8 mg/dL (5-40)
== END | disposition home or self-care (01) ==
LOC: LAB 10:29
PROVIDERS: PCP Family Medicine Geriatric Medicine; Referring Provider Internal Medicine Cardiovascular Disease; Visit Provider Internal Medicine Cardiovascular Disease
DX: I45.10 Unspecified right bundle-branch block (principal); C61 Malignant neoplasm of prostate; E78.5 Hyperlipidemia, unspecified
CPT/HCPCS: 36415; 80048; 80061; 80076; 83735; 84153; 84443; 85025; G0103

== ENCOUNTER → 2023-07-26 | Outpatient (CLI) | payer MEDICARE, OTHER, SELFPAY ==
[2023-07-26 15:45] LABS: Absolute Lymphocyte Count 1.41 X10^3/uL (0.83-4.51); Absolute Neutrophil Count 1.9 X10^3/uL (2.0-7.7); Basophil# 0.02 X10^3/uL; Basophil% 0.5 % (0-1); Eosinophil# 0.07 X10^3/uL; Eosinophils% 1.6 % (0-5); Hematocrit 45.3 % (40-54); Hemoglobin 14.3 g/dL (13.0-16.5); Lymphocyte # 1.41 X10^3/ul (0.83-4.51); Lymphocyte % 33.1 % (19-41); Mean Corp Hgb Conc 31.6 g/dL (32-36); Mean Corpuscular Volume 98.3 fL (80-94); Mean Platelet Vol. 10.4 fl (6.2-12.0); Monocyte# 0.88 X10^3/uL; Monocyte% 20.7 % (0-10); NRBC Flagged by Analyzer 0 % (0-5); Neutrophil # 1.88 X10^3/uL (2.7-7.7); Neutrophil % 44.1 % (47-70); Platelet Count 157 K/mm3 (150-450); RBC Distribution Width CV 13.9 % (11.6-14.6); RBC Distribution Width SD 50.1 fl (35.1-43.9); Red Blood Count 4.61 M/mm3 (4.6-6.2); White Blood Count 4.3 K/mm3 (4.4-11.0)
[2023-07-26 15:58] LABS: Vitamin D,25 Hydroxy 36.4 ng/mL
[2023-07-26 16:26] LABS: ALB/GLOB Ratio 0.9 RATIO (0.9-2.4); AST(SGOT) 25 U/L (15-37); Alanine Aminotransfer ALT/SGPT 35 U/L (16-61); Albumin, Serum 3.6 g/dL (3.2-5.0); Alkaline Phosphatase 67 U/L (45-117); Anion Gap 5 (5-15); BUN 17 mg/dL (7-18); BUN/Creat Ratio 12.9 RATIO (10-20); Calcium,Total 9.2 mg/dL (8.5-10.1); Chloride 108 mmol/L (98-107); Creatinine, Serum 1.32 mg/dL (0.70-1.30); EST Glomerular Filtration Rate 55 mL/min (>60); Est Glom Filt Rate - Afr Amer 67 mL/min (>60); Globulin 3.9 g/dL (2.2-4.2); Glucose 116 mg/dL (74-106); Potassium 4.5 mmol/L (3.5-5.1); Protein, Total 7.5 g/dL (6.4-8.2); Sodium Level 137 mmol/L (136-145); Thyroid Stim Hormone (TSH) 0.01 uIU/mL (0.358-3.74)
[2023-07-30 14:05] LABS: Free T3 9.8 pg/mL (2.18-3.98); T4 Free Direct 1.27 ng/dL (0.76-1.46)
== END | disposition home or self-care (01) ==
LOC: POLAB3 13:48
PROVIDERS: PCP Family Medicine Geriatric Medicine; Visit Provider Family Medicine Geriatric Medicine
DX: I10 Essential (primary) hypertension (principal); E55.9 Vitamin D deficiency, unspecified; E05.90 Thyrotoxicosis, unspecified without thyrotoxic crisis or storm
CPT/HCPCS: 36415; 80053; 82306; 84439; 84443; 84481; 85025

== ENCOUNTER → 2023-08-31 | Outpatient (CLI) | payer MEDICARE, OTHER, SELFPAY ==
[2023-08-31 15:57] LABS: Free T3 2.1 pg/mL (2.18-3.98); T4 Free Direct 0.92 ng/dL (0.76-1.46); Thyroid Stim Hormone (TSH) 0.73 uIU/mL (0.358-3.74)
[2023-09-02 08:08] LABS: Thyroid Peroxidase AB < 9 IU/mL (0-34)
== END | disposition home or self-care (01) ==
LOC: LAB 13:40
PROVIDERS: PCP Family Medicine Geriatric Medicine; Referring Provider Internal Medicine Endocrinology, Diabetes & Metabolism; Visit Provider Internal Medicine Endocrinology, Diabetes & Metabolism
DX: E78.5 Hyperlipidemia, unspecified (principal); R79.89 Other specified abnormal findings of blood chemistry
CPT/HCPCS: 36415; 84439; 84443; 84481; 86376

== ENCOUNTER → 2023-11-05 | Outpatient (CLI) | payer MEDICARE, OTHER, SELFPAY ==
[2023-11-05 10:39] LABS: Absolute Lymphocyte Count 1.09 X10^3/uL (0.83-4.51); Absolute Neutrophil Count 1.3 X10^3/uL (2.0-7.7); Basophil# 0.03 X10^3/uL; Basophil% 0.9 % (0-1); Eosinophil# 0.23 X10^3/uL; Eosinophils% 7.1 % (0-5); Hematocrit 46.4 % (40-54); Hemoglobin 15.1 g/dL (13.0-16.5); Lymphocyte # 1.09 X10^3/ul (0.83-4.51); Lymphocyte % 33.6 % (19-41); Mean Corp Hgb Conc 32.5 g/dL (32-36); Mean Corpuscular Hgb 31.7 pg (27.0-32.0); Mean Corpuscular Volume 97.5 fL (80-94); Mean Platelet Vol. 9.5 fl (6.2-12.0); Monocyte# 0.57 X10^3/uL; Monocyte% 17.6 % (0-10); NRBC Flagged by Analyzer 0 % (0-5); Neutrophil # 1.32 X10^3/uL (2.7-7.7); Neutrophil % 40.8 % (47-70); Platelet Count 153 K/mm3 (150-450); RBC Distribution Width CV 13.2 % (11.6-14.6); RBC Distribution Width SD 47.7 fl (35.1-43.9); Red Blood Count 4.76 M/mm3 (4.6-6.2); White Blood Count 3.2 K/mm3 (4.4-11.0)
[2023-11-05 11:04] LABS: Vitamin D,25 Hydroxy 34.4 ng/mL
[2023-11-05 11:10] LABS: ALB/GLOB Ratio 0.9 RATIO (0.9-2.4); AST(SGOT) 23 U/L (15-37); Alanine Aminotransfer ALT/SGPT 29 U/L (16-61); Albumin, Serum 3.7 g/dL (3.2-5.0); Alkaline Phosphatase 64 U/L (45-117); Anion Gap 3 (5-15); BUN 9 mg/dL (7-18); BUN/Creat Ratio 6.7 RATIO (10-20); Calcium,Total 9.4 mg/dL (8.5-10.1); Chloride 109 mmol/L (98-107); Creatinine, Serum 1.35 mg/dL (0.70-1.30); EST Glomerular Filtration Rate 54 mL/min (>60); Est Glom Filt Rate - Afr Amer 65 mL/min (>60); Globulin 3.9 g/dL (2.2-4.2); Glucose 99 mg/dL (74-106); Potassium 4.6 mmol/L (3.5-5.1); Protein, Total 7.6 g/dL (6.4-8.2); Sodium Level 139 mmol/L (136-145); Thyroid Stim Hormone (TSH) 0.68 uIU/mL (0.358-3.74)
== END | disposition home or self-care (01) ==
LOC: LAB 10:12
PROVIDERS: PCP Family Medicine Geriatric Medicine; Referring Provider Family Medicine Geriatric Medicine; Visit Provider Family Medicine Geriatric Medicine
DX: I10 Essential (primary) hypertension (principal); E55.9 Vitamin D deficiency, unspecified
CPT/HCPCS: 36415; 80053; 82306; 84443; 85025

== ENCOUNTER → 2024-01-01 | Outpatient (CLI) | payer MEDICARE, OTHER, SELFPAY ==
[2024-01-01 13:31] LABS: Absolute Lymphocyte Count 1.13 X10^3/uL (0.83-4.51); Absolute Neutrophil Count 1.3 X10^3/uL (2.0-7.7); Basophil# 0.02 X10^3/uL; Basophil% 0.7 % (0-1); Eosinophil# 0.07 X10^3/uL; Eosinophils% 2.3 % (0-5); Hematocrit 44.2 % (40-54); Hemoglobin 13.9 g/dL (13.0-16.5); Lymphocyte # 1.13 X10^3/ul (0.83-4.51); Lymphocyte % 37.3 % (19-41); Mean Corp Hgb Conc 31.4 g/dL (32-36); Mean Corpuscular Hgb 30.8 pg (27.0-32.0); Mean Platelet Vol. 10.5 fl (6.2-12.0); Monocyte% 16.5 % (0-10); NRBC Flagged by Analyzer 0 % (0-5); Neutrophil % 42.9 % (47-70); Platelet Count 150 K/mm3 (150-450); RBC Distribution Width CV 14.1 % (11.6-14.6); RBC Distribution Width SD 50.7 fl (35.1-43.9); Red Blood Count 4.51 M/mm3 (4.6-6.2)
[2024-01-01 14:12] LABS: ALB/GLOB Ratio 0.9 RATIO (0.9-2.4); AST(SGOT) 21 U/L (15-37); Alanine Aminotransfer ALT/SGPT 18 U/L (16-61); Albumin, Serum 3.5 g/dL (3.2-5.0); Alkaline Phosphatase 57 U/L (45-117); Anion Gap 4 (5-15); BUN 10 mg/dL (7-18); BUN/Creat Ratio 7.9 RATIO (10-20); Calcium,Total 9.2 mg/dL (8.5-10.1); Chloride 109 mmol/L (98-107); Creatinine, Serum 1.26 mg/dL (0.70-1.30); EST Glomerular Filtration Rate 58 mL/min (>60); Est Glom Filt Rate - Afr Amer 71 mL/min (>60); Globulin 3.7 g/dL (2.2-4.2); Glucose 86 mg/dL (74-106); Potassium 4.4 mmol/L (3.5-5.1); Protein, Total 7.2 g/dL (6.4-8.2); Sodium Level 140 mmol/L (136-145); Thyroid Stim Hormone (TSH) 0.586 uIU/mL (0.358-3.740)
--- NOTE | 2024-01-01 14:20 | CT_ITS ---
EXAM: CT CHEST, ABDOMEN AND PELVIS WITH INTRAVENOUS CONTRAST CLINICAL INDICATION: Abnormal weight loss. TECHNIQUE: Helically acquired images were obtained of the chest, abdomen and pelvis with intravenous contrast. This CT exam was performed using one or more of the following dose reduction techniques: automated exposure control, adjustment of the mA and/or kV according to patient size, and/or use of iterative reconstruction technique. CONTRAST: IV 100mL Isovue-370 RADIATION DOSE: CTDIvol = 15.24 mGy, DLP = 1245.90 mGy-cm COMPARISON: CT chest without contrast 01/26/2021. CT abdomen and pelvis with contrast 11/26/2020. FINDINGS: CHEST: LUNGS AND PLEURAL SPACES: Minimal band atelectasis in the posterior aspect of both lungs. No suspicious pulmonary nodules, infiltrates, consolidation or edema. No pneumothorax. No pleural effusion. HEART: Unremarkable. Heart size is normal. Normal cardiac size. Normal visualized coronary arteries. Normal pericardium. MEDIASTINUM: Unremarkable. No mediastinal or hilar adenopathy. Esophagus is unremarkable. No hiatal hernia. THYROID: 3 x 2 x 1.5 cm low-attenuation mass in the left thyroid lobe. ABDOMEN: LIVER: Unremarkable. Homogeneous. No focal mass. GALLBLADDER AND BILE DUCTS: Unremarkable. No visible gallbladder and is presumably from prior laparoscopic cholecystectomy. No intrahepatic or extrahepatic biliary ductal dilatation. PANCREAS: Unremarkable. No focal cystic or solid mass. SPLEEN: Unremarkable. Normal size without focal cystic or solid mass. ADRENALS: Unremarkable. No nodules. KIDNEYS AND URETERS: Nonenhancing 2.6 cm low-attenuation lesion in the medial aspect of the right renal parenchyma with CT number of 14.12 Hounsfield units, previously 1.9 cm. No stones or hydronephrosis in both kidneys. No suspicious renal mass. STOMACH AND BOWEL: Large left posterior gastric wall diverticulum. This was better visualized previously due to presence of contrast filled oral contrast inside the diverticulum. Normal small bowel and colon. No stomach or bowel distention. No focal inflammatory change. PELVIS: APPENDIX: No evidence of acute appendicitis. BLADDER: Mild thickening of the urinary bladder wall presumably due to chronic bladder neck outlet obstruction by BPH. REPRODUCTIVE: Enlarged central lobe of the prostate gland is at least BPH. CHEST, ABDOMEN and PELVIS: INTRAPERITONEAL SPACE: Unremarkable. No ascites or other fluid collection. No free air. BONES/JOINTS: Pronounced L5-S1 degenerative disc space height narrowing with degenerative vacuum phenomenon and endplate sclerosis. Prominent Schmorl''s node in the left side of the L4 inferior endplate with reactive marrow sclerosis. No lytic or blastic lesions. SOFT TISSUES: Unremarkable. No discrete abdominal or pelvic wall hernia. VASCULATURE: Normal pulmonary arteries. Normal thoracic aorta. Normal abdominal aorta and all its branches. LYMPH NODES: Unremarkable. No enlarged lymph nodes. CT/CT Chest, Abd, Pel w/Contrast IMPRESSION: 1. No CT evidence of pulmonary nodules, lung mass, infiltrates, consolidation or edema. 2. 3 x 2 x 1.5 cm low-attenuation mass in the left thyroid lobe. ACR White Paper guidelines (Jose Francisco HSU, et al. JACR 2015;12(2):143-50) suggest further evaluation with thyroid ultrasound. 3. Enlarged central lobe of the prostate gland causing bladder neck outlet obstruction and mild thickening of the urinary bladder wall. This is at least BPH. Please correlate with PSA levels. This was present previously without obvious significant change. 4. Large left posterior gastric wall diverticulum is much better visualized on comparison CT due to oral contrast opacification of the entire gastric diverticulum. Upper GI series will help confirm the absence of mass in the gastric diverticulum. Repeat CT of the stomach with oral contrast will also help confirm large posterior gastric wall diverticulum. 5. 2.6 cm nonenhancing low-attenuation lesion in the medial aspect of the right renal parenchyma, previously 1.9 cm. This has a CT number of 14.12 Hounsfield units suggesting cyst. ACR White Paper guidelines (José Miguel, et al. JACR 2018; 15(2):264-273) suggest no follow-up is necessary. 6. No CT evidence of suspicious mass in the abdomen and pelvis. Electronically Signed: Denny He MD at 15:35 EDT ,
== END | disposition home or self-care (01) ==
PROVIDERS: PCP Family Medicine Geriatric Medicine; Referring Provider Family Medicine Geriatric Medicine; Visit Provider Family Medicine Geriatric Medicine
DX: R53.83 Other fatigue (principal); E78.5 Hyperlipidemia, unspecified; E05.90 Thyrotoxicosis, unspecified without thyrotoxic crisis or storm
CPT/HCPCS: 36415; 71260; 74177; 80053; 84443; 85025; Q9967; A4216

== ENCOUNTER → 2024-01-02 | Outpatient (CLI) | payer MEDICARE, OTHER, SELFPAY | END | disposition home or self-care (01) | LOC: LABSPEC 14:23 | PROVIDERS: PCP Family Medicine Geriatric Medicine; Referring Provider Family Medicine Geriatric Medicine; Visit Provider Family Medicine Geriatric Medicine | DX: R63.4 Abnormal weight loss (principal) | CPT/HCPCS: 82274 ==

== ENCOUNTER → 2024-01-09 | Outpatient (CLI) | payer MEDICARE, OTHER, SELFPAY ==
--- NOTE | 2024-01-09 09:46 | US_ITS ---
STUDY: THYROID ULTRASOUND REASON FOR EXAM: Male, 78 years old. Thyrotoxicosis, unspecified without thyrotoxic crisis or storm TECHNIQUE: Ultrasound evaluation of the thyroid was performed with real-time and static sanz-scale imaging. COMPARISON: CT 01/01/2024 FINDINGS: RIGHT LOBE: The right lobe of the thyroid gland measures 6.1 x 1.7 x 2.5 cm. There is a homogeneous echotexture. Nodule 1:11 x 8 x 8 mm mixed cystic and solid isoechoic water than tall ill-defined margin nodule no echogenic foci (TR 2) in the mid right lobe consistent with an adenoma. LEFT LOBE: The left lobe of the thyroid gland measures 7.0 x 3.0 x 3.5 cm. There is a homogeneous echotexture. Nodule 2:38 x 27 x 27 mm solid isoechoic wider than tall ill-defined margin nodule with no echogenic foci (TR 3) in the left lobe for which ultrasound-guided biopsy is recommended. ISTHMUS: The isthmus measures 5 mm thick. Nodule 3:12 x 13 x 5 mm solid hypoechoic wider than tall ill-defined marginated nodule with no echogenic foci (TR 4) within the isthmus and follow-up ultrasound is recommended one year.. The regional lymph nodes are normal. US/Thyroid IMPRESSION: Multinodular thyroid gland with a dominant nodule in the left lobe for which ultrasound-guided biopsy is recommended. Follow-up ultrasound is recommended one year. Electronically Signed: Dale Holliday MD at 11:19 EDT ,
== END | disposition home or self-care (01) ==
LOC: US 09:44
PROVIDERS: PCP Family Medicine Geriatric Medicine; Referring Provider Family Medicine Geriatric Medicine; Visit Provider Family Medicine Geriatric Medicine
DX: E05.90 Thyrotoxicosis, unspecified without thyrotoxic crisis or storm (principal); K31.4 Gastric diverticulum
CPT/HCPCS: 76536

== ENCOUNTER → 2024-01-22 | Outpatient (CLI) | payer MEDICARE, OTHER, SELFPAY ==
[2024-01-22 16:47] LABS: AST(SGOT) 17 U/L (15-37); Alanine Aminotransfer ALT/SGPT 18 U/L (16-61); Albumin, Serum 3.6 g/dL (3.2-5.0); Alkaline Phosphatase 68 U/L (45-117); Bilirubin, Direct 0.19 mg/dL (0.00-0.30); Cholesterol 144 mg/dL (200); Globulin 3.9 g/dL (2.2-4.2); High Density Lipoprotein 61 mg/dL; Protein, Total 7.5 g/dL (6.4-8.2); Triglycerides 80 mg/dL; Very Low Density Lipoprotein 16 mg/dL (5-40)
== END | disposition home or self-care (01) ==
LOC: LAB 15:11
PROVIDERS: Physician Assistant Medical; PCP Family Medicine Geriatric Medicine; Referring Provider Nurse Practitioner; Visit Provider Nurse Practitioner
DX: C61 Malignant neoplasm of prostate (principal); E78.00 Pure hypercholesterolemia, unspecified
CPT/HCPCS: 36415; 80061; 80076; 84153

== ENCOUNTER → 2024-01-23 | Outpatient (CLI) | payer MEDICARE, OTHER, SELFPAY ==
[2024-01-23 11:26] LABS: Absolute Lymphocyte Count 1.22 X10^3/uL (0.83-4.51); Absolute Neutrophil Count 1.5 X10^3/uL (2.0-7.7); Basophil# 0.02 X10^3/uL; Basophil% 0.6 % (0-1); Eosinophil# 0.07 X10^3/uL; Hematocrit 44.3 % (40-54); Hemoglobin 13.8 g/dL (13.0-16.5); Lymphocyte # 1.22 X10^3/ul (0.83-4.51); Lymphocyte % 35.7 % (19-41); Mean Corp Hgb Conc 31.2 g/dL (32-36); Mean Corpuscular Hgb 30.7 pg (27.0-32.0); Mean Corpuscular Volume 98.4 fL (80-94); Mean Platelet Vol. 10.3 fl (6.2-12.0); Monocyte# 0.58 X10^3/uL; NRBC Flagged by Analyzer 0 % (0-5); Neutrophil # 1.52 X10^3/uL (2.7-7.7); Neutrophil % 44.4 % (47-70); Platelet Count 156 K/mm3 (150-450); RBC Distribution Width CV 14.5 % (11.6-14.6); RBC Distribution Width SD 52.7 fl (35.1-43.9); White Blood Count 3.4 K/mm3 (4.4-11.0)
[2024-01-23 11:57] LABS: ALB/GLOB Ratio 0.9 RATIO (0.9-2.4); AST(SGOT) 13 U/L (15-37); Alanine Aminotransfer ALT/SGPT 17 U/L (16-61); Albumin, Serum 3.6 g/dL (3.2-5.0); Alkaline Phosphatase 61 U/L (45-117); Anion Gap 1 (5-15); BUN 11 mg/dL (7-18); BUN/Creat Ratio 8.9 RATIO (10-20); Calcium,Total 9.4 mg/dL (8.5-10.1); Chloride 107 mmol/L (98-107); Creatinine, Serum 1.23 mg/dL (0.70-1.30); EST Glomerular Filtration Rate 60 mL/min (>60); Est Glom Filt Rate - Afr Amer 73 mL/min (>60); Globulin 3.8 g/dL (2.2-4.2); Glucose 97 mg/dL (74-106); Potassium 4.4 mmol/L (3.5-5.1); Protein, Total 7.4 g/dL (6.4-8.2); Sodium Level 137 mmol/L (136-145); Thyroid Stim Hormone (TSH) 0.513 uIU/mL (0.358-3.740)
[2024-01-23 12:05] LABS: Vitamin D,25 Hydroxy 39.8 ng/mL
== END | disposition home or self-care (01) ==
LOC: POLAB3 10:37
PROVIDERS: PCP Family Medicine Geriatric Medicine; Visit Provider Family Medicine Geriatric Medicine
DX: I10 Essential (primary) hypertension (principal); E55.9 Vitamin D deficiency, unspecified
CPT/HCPCS: 36415; 80053; 82306; 84443; 85025

== ENCOUNTER → 2024-02-05 | Outpatient (CLI) | payer MEDICARE, OTHER, SELFPAY ==
--- NOTE | 2024-02-05 | ASPSI_PTH ---
PATIENT: BALJINDER PÉREZ LOC: [facility] U#:[id number] AGE/SX: 78/M ROOM: RE02/05/[address]: Dr. Karthikeyan Francois MD : 1945 BED: DIS: 02/05/2024 SPEC #: [id number] RECD: 02/05/24 10:30 STATUS: [place] YARELIS #: [id number] IVETTE: 02/05/24 00:[address]: Karthikeyan Francois DEPT: CYTOLOGY RECD BY: Bayron Hernandez ENTERED: 02/05/24 13:03 SP TYPE: ASP LOBO JONES DR: Dr. Aashish hBakta MD Tissues: A - Thyroid gland, NOS B - Thyroid gland, NOS C - Thyroid isthmus D - Thyroid isthmus Procedures: Surgery Specimen Level IV Surgery Specimen Level V Cytospin Fluid Cytology Other HEADER OPERATION: Fine needle aspiration of thyroid nodule PRE-OP DIAGNOSIS: Thyroid nodule TISSUE SUBMITTED: A- Left thyroid nodule fluid, B- Left thyroid nodule slides, C- Isthmic nodule fluid, D- Isthmic nodule slides DIAGNOSIS CYTOLOGY A. Fine needle aspiration, left thyroid nodule (cytospins and cellblock): Consistent with benign follicular nodule ([place] Category II). A fragment of unremarkable skin. See comment. B. Fine needle aspiration, left thyroid nodule (smears): Consistent with benign follicular nodule ([place] Category II). See comment. C. Fine needle aspiration, isthmic nodule fluid (cytospins and cellblock): Mild atypia of undetermined significance ([place] Category III). Polymorphous lymphocytes are present. See comment. D. Fine needle aspiration, isthmic nodule (smears): Mild atypia of undetermined significance ([place] Category III). Polymorphous lymphocytes are present. See comment. 02/06/2024 COMMENT A, B, C, D. The [place] System for thyroid diagnostic categorization was used in the evaluation of this case. Per recommendations and a clinician-approved plan (a call was made to the referring doctor about the recommendation), genomic testing (Afirma) has been submitted. Results will be reported as an addendum and faxed to clinician. CYTOLOGY STUDY Slides are reviewed. CYTOLOGY GROSS A. Received is 30 ml of red fluid labeled with the patient's name and and designated per the requisition as Left thyroid nodule fluid. Submitted for cytology preparation including cell block. B. Received are 4 smears labeled with the patient's name and designated per the requisition as Left thyroid nodule. Submitted for staining. C. Received is 30 ml of red fluid labeled with the patient's name and and designated per the requisition as Isthmic nodule fluid. Submitted for cytology preparation including cell block. D. Received are 4 smears labeled with the patient's name and designated per the requisition as Isthmic nodule. Submitted for staining. 02/05/2024 TC:? CPT: 79868k0,33489r1 ADDENDUM ADDENDUM ADDENDUM ADDENDUM ADDENDUM ADDENDUM ADDENDUM ADDENDUM ADDENDUM ADDENDUM ADDENDUM ADDENDUM ADDENDUM ADDENDUM ADDENDUM 02/27/2024 08:14 ADDENDUM 02/27/2024 08:14 ADDENDUM 02/27/2024 08:14 ADDENDUM 02/27/2024 08:14 ADDENDUM 02/27/2024 08:14 A. AFIRMA RESULTS REPORT RESULTS INTERPRETATION: Test cancelled (TNP) due to absence of concurrent or prior indeterminate cytopathology findings. B. AFIRMA RESULTS REPORT RESULTS INTERPRETATION: The result of this 1.3 cm [place] III nodule B is Afirma GSC Suspicious which suggests a risk of cancer of approximately 50%. The risk of malignancy of a GSC Suspicious Afirma XA negative sample remains approximately 50%. Clinical correlation and surgical resection should be considered. Please see complete report in e-chart or EMR
== END | disposition home or self-care (01) ==
LOC: LABSPEC 10:35
PROVIDERS: PCP Family Medicine Geriatric Medicine; Referring Provider Surgery; Visit Provider Surgery
DX: E04.1 Nontoxic single thyroid nodule (principal)
CPT/HCPCS: 88108; 88161; 88305; 88307

== ENCOUNTER → 2024-02-18 | Outpatient (CLI) | payer MEDICARE, OTHER, SELFPAY ==
--- NOTE | 2024-02-18 13:49 | MRI_ITS ---
STUDY: MR PROSTATE GLAND/ PELVIS WITH T WITHOUT CONTRAST REASON FOR EXAM: Male, 78 years old. ELEVATED PSA, PSA 10.2 TECHNIQUE: Standardized fat and water weighted pulse sequences were obtained in all 3 orthogonal planes, pre-and post contrast administration. IV 16cc clariscan was administered for the contrast portion of the examination. COMPARISON: CT of abdomen and pelvis dated January 01, 2024. FINDINGS: Prostate gland volume/size: 5.62 x 5.47 x 4.98 cm Anterior fibromuscular stroma: Normal Peripheral zone: 1.22 cm ovoid intermediate to low signal nodule in the medial aspect of the right peripheral zone seen on image 20/32 series 8 demonstrates mild enhancement but does not have the right diffusion weighted signal. The signal on diffusion-weighted sequence and ADC map are below low with suggests a hyperplastic fibrous nodule rather than definite neoplasm, targeted biopsy with definitive pathologic evaluation can be performed if symptoms persist. A simple nonenhancing 1.25 cm cyst is present in the midline of the right and left peripheral zones. The remaining aspects of the bilateral peripheral zones have normal bright homogeneous signal. Central zone: Diffusely heterogeneous and nodular and hyperplastic suggesting BPH. No definite malignant nodule or mass is visualized. Diffuse postcontrast enhancement demonstrated. Transitional zone: Diffusely heterogeneous and nodular and hyperplastic suggesting BPH. No definite malignant nodule or mass is visualized. Diffuse postcontrast enhancement demonstrated. Prostate capsule: Intact Seminal vesicles: Normal bilaterally Pelvic sidewall lymphadenopathy: Not present Bony structures: No marrow edema or lytic or blastic lesions or abnormally enhancing lesions Normal urinary bladder. Normal visualized small intestine. There are multiple colonic diverticula of the sigmoid colon consistent with chronic diverticulosis. There is no pelvic fluid. There is no pelvic mass lesion or lymphadenopathy. Moderate circumferential thickening of the bladder wall with trabeculation. A moderate size left posterior bladder diverticulum is also present measuring 2 cm in diameter. No bladder masses or stones are present. Normal abdominal wall. MRI/Pelvis W/WO Contrast IMPRESSION: 1. Peripheral zone: 1.22 cm ovoid intermediate to low signal nodule in the medial aspect of the right peripheral zone seen on image 20/32 series 8 demonstrates mild enhancement but does not have the right diffusion weighted signal. The signal on diffusion-weighted sequence and ADC map are below low with suggests a hyperplastic fibrous nodule rather than definite neoplasm, targeted biopsy with definitive pathologic evaluation can be performed if symptoms persist. 2. A simple nonenhancing 1.25 cm cyst is present in the midline of the right and left peripheral zones. The remaining aspects of the bilateral peripheral zones have normal bright homogeneous signal. 3. PI-RADS 3: intermediate (the presence of clinically significant cancer is equivocal) Reference information: Normal prostate tissue Benign prostatic hypertrophy cancer/tumor - low signal peripheral , transitional, and central zones malignancy appears as bright on DWI and low signal on ADC map Prostate imaging-reporting and data system (PI-RADS) PI-RADS 1: very low (clinically significant cancer is highly unlikely to be present) PI-RADS 2: low (clinically significant cancer is unlikely to be present) PI-RADS 3: intermediate (the presence of clinically significant cancer is equivocal) PI-RADS 4: high (clinically significant cancer is likely to be present) PI-RADS 5: very high (clinically significant cancer is highly likely to be present) PI-RADS X: component of exam technically inadequate or not performed Prostate malignancy distribution: Peripheral zone: 70-80% Transitional zone: 10-20% Central zone: 5% or less Electronically Signed: Benigno Smith MD at 15:13 EDT Reading Location ID and State: [facility] / [place] , Service support ,
== END | disposition home or self-care (01) ==
LOC: MRI 13:41
PROVIDERS: PCP Family Medicine Geriatric Medicine; Referring Provider Urology; Visit Provider Urology
DX: R97.20 Elevated prostate specific antigen [PSA] (principal); C61 Malignant neoplasm of prostate
CPT/HCPCS: 72197; A9575

== ENCOUNTER → 2024-02-19 | Outpatient (CLI) | payer MEDICARE, OTHER, SELFPAY ==
--- NOTE | 2024-02-19 09:28 | NM_ITS ---
CLINICAL: 78-year-old male with history of clinical thyrotoxicosis. I-123 THYROID UPTAKE and SCAN COMPARISON: Thyroid ultrasound report 01/09/2024 FINDINGS: The patient was administered a 304 uCi I-123 capsule by mouth. The 4-hour I-123 radioactive iodine thyroidal uptake was calculated to be 2.4 % (normal 5 to 25 %). The 24-hour I-123 radioactive iodine thyroidal uptake was calculated to be 5.5 % (normal 5 to 40 %). The I-123 thyroid scan demonstrates decreased and nonuniform radiopharmaceutical concentration throughout both lobes of a U-shaped thyroid gland. There are no colloidal parenchymal hypofunctioning-cold nodules noted in either lobe of the thyroid gland. NM/Thyroid Uptake Single or Mult IMPRESSION: 1. ABNORMAL DECREASED 4- and LOWER LIMITS OF NORMAL 24-hour I-123 radioactive iodine thyroidal uptakes. 2. The I-123 thyroid scan and iodine uptake values is consistent with the injurious phase of subacute or chronic thyroiditis in the setting of clinical thyrotoxicosis. Electronically Signed: Dale Go DO at 13:31 EDT ,
== END | disposition home or self-care (01) ==
LOC: NM 09:27
PROVIDERS: PCP Family Medicine Geriatric Medicine; Referring Provider Surgery; Visit Provider Surgery
DX: R79.89 Other specified abnormal findings of blood chemistry (principal); E04.1 Nontoxic single thyroid nodule
CPT/HCPCS: 78012; A9516

== ENCOUNTER → 2024-03-05 | Outpatient (CLI) | payer MEDICARE, OTHER, SELFPAY ==
--- NOTE | 2024-03-05 08:30 | RAD_ITS ---
PROCEDURE: Air contrast Upper GI with Small Bowel Follow Through DATE OF EXAMINATION: March 05, 2024.. INDICATION: Male, 78 years old. History of gastric diverticulum. FLUOROSCOPY TIME (if supplied): (1:55) minutes/seconds. 44.3 mGy. 46 fluoroscopic images were obtained. TECHNIQUE: Radiographic and fluoroscopic images of the distal esophagus, stomach, and entire small intestine were obtained following the oral ingestion of barium. COMPARISON: None. FINDINGS: The home health registered nurse film of the abdomen demonstrates a normal bowel gas pattern. There are no abnormal calcifications or organomegaly demonstrated. The visualized osseous structures are normal. The esophagus is unremarkable. No evidence of gastroesophageal obstruction. There is evidence of a small sliding hernia with gastroesophageal reflux. The stomach and duodenum are unremarkable. No evidence of gastric diverticulum. A single contrast small bowel follow through exam demonstrates the small bowel to have no evidence for stricture, ulceration or mass. The transit time is normal at 60 minutes. RAD/Upper GI/w Small Bowel IMPRESSION: 1. Sliding hiatal hernia with gastroesophageal reflux. Electronically Signed: Eder Romano MD at 13:43 EDT ,
== END | disposition home or self-care (01) ==
LOC: RAD 08:29
PROVIDERS: PCP Family Medicine Geriatric Medicine; Referring Provider Family Medicine Geriatric Medicine; Visit Provider Family Medicine Geriatric Medicine
DX: K31.4 Gastric diverticulum (principal)
CPT/HCPCS: 74246; 74248

== ENCOUNTER → 2024-03-17 | Outpatient (CLI) | payer MEDICARE, OTHER, SELFPAY ==
--- NOTE | 2024-03-17 | IMM_PTH ---
PATIENT: BALJINDER PÉREZ LOC: [facility] U#:[id number] AGE/SX: 78/M ROOM: RE03/17/[address]: Dr. Raymundo Casillas MD : 1945 BED: DIS: 03/17/2024 SPEC #: [id number] RECD: 03/19/24 13:21 STATUS: [place] REQ #: [id number] IVETTE: 03/17/24 00:[address]: Raymundo Casillas DEPT: IMMUNOHISTOCHEMISTRY RECD BY: Tino Horton ENTERED: 03/19/24 13:24 SP TYPE: IMMUNO OTHR DR: Dr. Aashish Bhakta MD Tissues: C - PROSTATE RIGHT D - PROSTATE LEFT F - PROSTATE LEFT Procedures: 34BE12 (add) P40 (add) P40 (initial) 34BE12 (initial) PHYSICIAN & INSTITUTION [place] [id number] SPECIMEN INFORMATION: Tissue Source: C- Right base, D- Left apex, F- Left base Clinical Info: Elevated PSA Specimen Number: [id number] C, D, F CPT code: 74534, METHODOLOGY: Deparaffinized sections of prefer/formalin-fixed tissue or PAP/DQ stained slides are incubated with monoclonal/polyclonal antibodies/oligonucleotide probes. Localization is made via biotin free immunoperoxidase method. Appropriate controls are performed and reacted as expected. Results on target cell population are indicated in the following table: RESULTS: ANTIBODY / CLONE RESULT Block C P40 (BC28) negative 34BE12 (34BE12) negative Block D P40 (BC28) positive 34BE12 (34BE12) positive Block F P40 (BC28) negative 34BE12 (34BE12) negative These tests were developed and their performance characteristics determined by [facility]. They may not have been cleared or approved by the U.S. Food and Drug Administration. The FDA has determined that such clearance or approval is not necessary. The above immunohistochemical/dualISH markers are ordered and reviewed by the Pathologist. INTERPRETATION: C. Prostate, right base, core biopsy: Adenocarcinoma. D. Prostate, left apex, core biopsy: Negative for malignancy. F. Prostate, left base, core biopsy: Adenocarcinoma. 03/20/2024
--- NOTE | 2024-03-17 | PROSBIL_PTH ---
PATIENT: BALJINDER PÉREZ LOC: [facility] U#:[id number] AGE/SX: 78/M ROOM: RE03/17/[address]: Dr. Raymundo Casillas MD : 1945 BED: DIS: 03/17/2024 SPEC #: [id number] RECD: 03/17/24 15:33 [place]US: [place] YARELIS #: [id number] IVETTE: 03/17/24 00:[address]: Raymundo Casillas DEPT: SURGICAL PATHOLOGY RECD BY: Garret Guidry ENTERED: 03/18/24 09:51 SP TYPE: PROST BX ROBERT DR: Dr. Aashish Bhakta MD Tissues: A - PROSTATE RIGHT B - PROSTATE RIGHT C - PROSTATE RIGHT D - PROSTATE LEFT E - PROSTATE LEFT F - PROSTATE LEFT Procedures: PROSTATE BX HEADER OPERATION: Prostate biopsy PRE-OP DIAGNOSIS: Elevated PSA TISSUE SUBMITTED: A - Right apex, B - Right mid, C - Right base, D - Left apex, E - Left mid, F - Left base MICROSCOPIC DIAGNOSIS A. Right prostate, apex, core biopsy: Prostatic tissue, negative for malignancy. B. Right prostate, mid, core biopsy: Prostatic tissue, negative for malignancy. C. Right prostate, base, core biopsy: Prostatic adenocarcinoma. [place] grade: 3+3=6 Number of cores involved: 2/2 Proportion of tissue involved: ~30% Perineural invasion: Not identified. Greatest tumor length: 0.6 cm See comment. D. Left prostate, apex, core biopsy: Prostatic tissue, negative for malignancy. See comment. E. Left prostate, mid, core biopsy: Prostatic tissue, negative for malignancy. F. Left prostate, base, core biopsy: Prostatic adenocarcinoma. Erie grade: 3+3=6 Number of cores involved: 1/2 Proportion of tissue involved: ~5% Perineural invasion: Not identified. Greatest tumor length: 0.2 cm See comment. 03/19/2024 COMMENT C, D, F. Immunohistochemistry ([id number]) supports the above diagnosis. This case has been reviewed in consultation with Dr. Bah who concurs with the above diagnosis. IDC:[id number] MICROSCOPIC DESCRIPTION Slides are reviewed. GROSS DESCRIPTION A - Received is one container designated prostate, right apex. The specimen consists of one elongated fragments of light pardo-white soft tissue measuring 1.5 cm in length and <0.1 cm in diameter. The specimen is totally submitted in one cassette. B - Received is one container designated prostate, right mid. The specimen consists of two elongated fragments of light pardo-white soft tissue each measuring 1.2 cm in length and 0.1 cm in diameter. The specimen is totally submitted in one cassette. C - Received is one container designated prostate, right base. The specimen consists of two elongated fragments of light pardo-white soft tissue measuring 1.0 and 1.6 cm in length and 0.1 cm in diameter. The specimen is totally submitted in one cassette. D - Received is one container designated prostate, left apex. The specimen consists of one elongated fragments of light pardo-white soft tissue measuring 1.1 cm in length and 0.1 cm in diameter. The specimen is totally submitted in one cassette. E - Received is one container designated prostate, left mid. The specimen consists of two elongated fragments of light pardo-white soft tissue measuring 0.9 and 1.1 cm in length and 0.1 cm in diameter. The specimen is totally submitted in one cassette. F - Received is one container designated prostate, left base. The specimen consists of two elongated fragments of light pardo-white soft tissue measuring 0.6 and 1.0 cm in length and 0.1 cm in diameter. The specimen is totally submitted in one cassette. / 03/18/2024 TC:0 CPT: G0146
== END | disposition home or self-care (01) ==
LOC: LABSPEC 15:48
PROVIDERS: PCP Family Medicine Geriatric Medicine; Referring Provider Urology; Visit Provider Urology
DX: C61 Malignant neoplasm of prostate (principal); R97.20 Elevated prostate specific antigen [PSA]
CPT/HCPCS: 88305; 88341; 88342; G0416

== ENCOUNTER 2024-04-30 15:13 | Observation (INO) | payer MEDICARE, OTHER, SELFPAY ==
--- NOTE | 2024-04-17 12:04 | EKG12_ITS ---
Test Reason : PRE OP Blood Pressure : */* mmHG Vent. Rate : 71 BPM Atrial Rate : 71 BPM P-R Int : 134 ms QRS Dur : 132 ms QT Int : 402 ms P-R-T Axes : 69 -6 38 degrees QTcB Int : 436 ms Normal sinus rhythm with sinus arrhythmia Right bundle branch block Abnormal ECG Confirmed by Karthikeyan Montoya ([id number]), newspaper editor managing KEDAR TATUM ([id number]) on 04/18/2024 6:45:44 AM Referred By: Karthikeyan Francois Confirmed By: Karthikeyan Montoya
[2024-04-22 13:29] LABS: Hematocrit 45.4 % (40-54); Hemoglobin 14.5 g/dL (13.0-16.5); Mean Corp Hgb Conc 31.9 g/dL (32-36); Mean Corpuscular Hgb 31.3 pg (27.0-32.0); Mean Corpuscular Volume 97.8 fL (80-94); Mean Platelet Vol. 9.6 fl (6.2-12.0); Platelet Count 172 K/mm3 (150-450); RBC Distribution Width CV 13.4 % (11.6-14.6); RBC Distribution Width SD 48.6 fl (35.1-43.9); Red Blood Count 4.64 M/mm3 (4.6-6.2); White Blood Count 4.6 K/mm3 (4.4-11.0)
[2024-04-22 14:27] LABS: Anion Gap 5 (5-15); BUN 11 mg/dL (7-18); BUN/Creat Ratio 7.4 RATIO (10-20); Calcium,Total 9.6 mg/dL (8.5-10.1); Chloride 109 mmol/L (98-107); Creatinine, Serum 1.48 mg/dL (0.70-1.30); EST Glomerular Filtration Rate 49 mL/min (>60); Est Glom Filt Rate - Afr Amer 59 mL/min (>60); Glucose 103 mg/dL (74-106); Potassium 4.5 mmol/L (3.5-5.1); Sodium Level 140 mmol/L (136-145)
[2024-04-22 14:50] LABS: Hemoglobin A1c 5.4 % (3.8-5.6)
[2024-04-30] VITALS (13 sets, daily range): BP systolic 125–145; BP diastolic 68–80; PULSE 49–70; RESP 14–118; TEMP 36.1–36.9; O2SAT 95–100; BMI 25.0
--- NOTE | 2024-04-30 09:50 | PCM.PRE.AN2 ---
ASA Classification* ASA Classification ASA Classification: 2 Assessment & Plan Anesthesia* Anesthesia Assessment Anesthesia Assessment: Discussed sedation and/or anesthesia options, risks, benefits, and alternatives with patient/parents/legal guardian/POA. Questions invited. The patient/parents/legal guardian/POA seems to understand and agrees to proceed with anesthesia plan. Reviewed the physical assessment, medical history, allergy history and patient home medications list prior to surgery/procedure/anesthetic and documented any changes. Performed airway and anesthesia risk assessments. Anesthesia Type Anesthesia Type: General Anesthesia Focused Assessment* Airway Assessment Mouth opens: >3 cm Mallampati Score: II Focused Labs Anesthesia Preop lab: CBC WBC 4.6 K/mm3 (4.4-11.0) 04/22/24 12:50 RBC 4.64 M/mm3 (4.6-6.2) 04/22/24 12:50 Hgb 14.5 g/dL (13.0-16.5) 04/22/24 12:50 Hct 45.4 % (40-54) 04/22/24 12:50 Plt Count 172 K/mm3 (150-450) 04/22/24 12:50 CHEMISTRY Potassium 4.5 mmol/L (3.5-5.1) 04/22/24 12:50 Sodium 140 mmol/L (136-145) 04/22/24 12:50 Magnesium 2.0 mg/dL (1.6-2.6) 07/10/23 10:33 BUN 11 mg/dL (7-18) 04/22/24 12:50 Creatinine 1.48 mg/dL (0.70-1.30) H 04/22/24 12:50 Glucose 103 mg/dL (74-106) 04/22/24 12:50 TSH 0.513 uIU/mL (0.358-3.740) 01/23/24 10:38 COAG PT 13.2 SECONDS (11.7-14.9) 05/22/18 05:00 Pre-Assessment Diagnosis/Proposed Procedure Planned Operative Procedure(s): LEFT THYROID LOBECTOMY WITH ISTHMUSECTOMY AND INTRA OPERATIVE NERVE MONITORING Anesthesia History 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 When Was Last Pacemaker Check QUESTION #4 FULL TEXT: You/Your Family Experience fever (hyperthermia) with Anesthesia Last Oral Intake Last Oral intake: Last Oral Intake NPO since Meds taken in AM with sips of water? Meds patient instructed to take am of surgery PONV PONV - customer service clerk: PONV - customer service clerk Female No 04/16/24 10:34 HX of Motion Sickness No 04/16/24 10:34 HX of N/V After Surgery No 04/16/24 10:34 Non-Smoker Yes 04/16/24 10:34 Duration of Surgery greater Yes 04/16/24 10:34 than 60 minutes Number of Risk Factors 2 04/16/24 10:34 PONV Score Moderate Risk 04/16/24 10:34 Height & Weight Height & Weight: Anesthesia: Height & Weight Height 5 ft 10 in 04/03/24 10:25 Respiratory Assessment Respiratory Assessment - customer service clerk: Respiratory Tract Infection Hx - customer service clerk Hx Respiratory Tract Infection Yes: COLD/NO FEVER 04/16/24 10:34 STOP Sleep Apnea STOP Sleep Apnea - customer service clerk: STOP Sleep Apnea - customer service clerk Hx Hypertension No 04/16/24 10:34 Hx Sleep Apnea No 04/16/24 10:34 CPAP BIPAP Do you snore loudly (louder No 04/16/24 10:34 than talking or can be heard Do you often feel tired/ Yes 04/16/24 10:34 fatigued/ sleepy during daytime? Has anyone observed you stop No 04/16/24 10:34 breathing during sleep? STOP Results Negative 04/16/24 10:34 QUESTION #5 FULL TEXT : Do you snore loudly (louder than talking or can be heard through closed doors)? 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 Specify any problems Hx of Preganancy in last 3 N/A 04/16/24 10:34 Months Nurse Filling Out Transfusion DSCHRIBER 04/16/24 10:34 & Questions: Date: 04/16/24 04/16/24 10:34 Time: 10:37 04/16/24 10:34 Patient unable to answer at this time (ie. confused, unrespo /Reproduction History /Reproductive History - customer service clerk: /Reproductive Hx- customer service clerk Hx Now No 04/16/24 10:34 Gestational Age (in weeks): EDC: Hx Hx Para Hx Section SAB No 04/16/24 10:34 Active Medications Active Medications: Current Medications Generic Name Dose Route Start Last Admin Trade Name Freq PRN Reason Stop Dose Admin Sodium Chloride 1,000 mls @ 15 mls/hr 04/30/24 09:45 IV 05/05/24 23:04 .Q48H PENDING SALE TO [facility] Protocol PFSH Medical History Wears dentures Diabetes Prostate disease Restless legs Asthma Former smoker Leg cramps History of irregular heartbeat History of stress test Cardiology follow-up encounter Thyroid nodule Abnormal thyroid blood test Chronic kidney disease, stage 1 Arthritis BPH (benign prostatic hyperplasia) Psoriasis Right bundle branch block Hyperlipidemia Home Medications ?Medication ?Instructions ?Recorded ?Last Taken ?Type tamsulosin 0.4 mg capsule 0.4 mg PO QHS 12/10/16 Unknown History multivitamin (Daily Multi-Vitamin 1 tab PO DAILY 05/09/19 Unknown History tablet) rosuvastatin 10 mg tablet 10 mg PO QHS 08/31/23 Unknown History Allergy/AdvReac Type Severity Reaction Status Date / Time No Known Allergies Allergy Verified 04/16/24 10:29 Family History Brother Cancer Prostate cancer Surgical History Hx of colonoscopy Hx laparoscopic cholecystectomy History of appendectomy Social History Smoking Status: Former smoker quit date: 05/14/73 pack-years: 10 second hand exposure: No alcohol intake: never substance use type: does not use dante/druze: Jainism seatbelt use: always do you feel safe at home: Yes Review of Systems (Anesthesia) ROS Narrative System reviewed and no additional complaints, except as documented.
[2024-04-30] MEDS: 0.9% Normal Saline (1000mL) 1,000 ML 15 ML IV ×2 (10:15→15:28)
--- NOTE | 2024-04-30 11:00 | THYROID_PTH ---
PATIENT: BALJINDER PÉREZ LOC: MS3 U#:[id number] AGE/SX: 78/M ROOM: [facility] – [place] RE04/30/[address]: Dr. Karthikeyan Francois MD : 1945 BED: 1 DIS: 05/01/2024 SPEC #: [id number] RECD: 04/30/24 16:37 STATUS: [place] SANTOYO #: [id number] IVETTE: 04/30/24 11:[address]: Karthikeyan Francois DEPT: SURGICAL PATHOLOGY RECD BY: Bayron Hernandez ENTERED: 05/01/24 07:35 SP TYPE: THYROID OTHR DR: Dr. Aashish Bahkta MD Tissues: Thyroid gland, NOS Procedures: Surgery Specimen Level V HEADER OPERATION: Left thyroid lobectomy with isthmus and IONM PRE-OP DIAGNOSIS: Multiple thyroid nodules TISSUE SUBMITTED: Left thyroid lobe and isthmus *suture rodriguez left superior pole* MICROSCOPIC DIAGNOSIS Left thyroid lobe and isthmus, lobectomy and isthmectomy: Multinodular goiter. 05/05/2024 COMMENT Please make reference to previous specimen [id number], FNA, left thyroid lobe, with diagnosis of consistent with benign follicular nodule; and FNA, isthmic nodule with diagnosis of mild atypia of undetermined significance. MICROSCOPIC DESCRIPTION Slides are reviewed. GROSS DESCRIPTION Received in fixative is one container labeled with the patient's name and designated Left thyroid and isthmus. The specimen consists of a lobectomy and isthmectomy specimen weighing 30.5gm. The left lobe measures 6.5 x 4.5 x 3.0cm and the isthmus measures 3.5 x 2.0 x 1.0cm. The specimen is inked as follows: anterior surface left thyroid lobe and isthmus - blue, posterior surface left thyroid lobe and isthmus - black, isthmic resection margin - yellow. Sections reveal a large nodule in the lower and middle portion of the thyroid lobe measuring 4.0 x 3.0 x 2.0cm. [employer] sections are submitted in sixteen cassettes. 1-4- isthmus, entirely submitted, 5-16- left thyroid lobe. Cassettes 6 to 16 contains the nodule and adjacent tissue, about 95% of the specimen including nodule is submitted. Sections are submitted after additional fixation. 05/01/2024 TC:5 CPT:01253
--- NOTE | 2024-04-30 11:03 | HP.PCM_ITS ---
History and Physical Date of Admission: 04/30/24 Date of Service: 03/19/24 MR#: [id number] Acct: [id number] Name: BALJINDER PACHECO Rep #: [id number] : 1945 Provider: Dr. Karthikeyan Francois MD Age/Sex: 78/M Location: [facility] Status: Signed Intake Vital Signs 02/04/2409:11 03/19/2410:05 Height 5 ft 10 in 5 ft 10 in Weight: 178 lb BMI 25.5 BP 143/73 H Blood Pressure Location Rt brachial Position Sitting Respiration 18 Pulse 73 Pulse Source Monitor Temp 97.8 F Temp Source Temporal Pulse Oximetry (%) 100 Oxygen Delivery Method room air Intake Visit Reasons: DISCUSS THYROID SURGERY Chief Complaint: discuss thyroid surgery Accompanied by: Is patient in pain?: No Allergies No Known Allergies Allergy (Verified 03/19/24 10:05) Medications ?Medication ?Instructions ?Recorded ?Confirmed ?Type tamsulosin 0.4 mg capsule 0.4 mg PO DAILY 12/10/16 03/19/24 History multivitamin (Daily Multi-Vitamin 1 tab PO DAILY 05/09/19 03/19/24 History tablet) rosuvastatin 10 mg tablet 10 mg PO QHS 08/31/23 03/19/24 History Have you fallen in the past year?: No PFSH Medical History Thyroid nodule Abnormal thyroid blood test Prostate cancer Hypertension Chronic kidney disease, stage 1 Hypogonadism Arthritis BPH (benign prostatic hyperplasia) Psoriasis Right bundle branch block Hyperlipidemia Surgical History Hx of cholecystectomy History of appendectomy History of gallbladder disease History of appendectomy Family History Brother Cancer Prostate cancer Social History Smoking Status: Never smoker second hand exposure: No alcohol intake: never substance use type: does not use dante/amish: Muslim seatbelt use: always do you feel safe at home: Yes HPI HPI HPI: Patient is a 78-year-old male who presents for evaluation of thyroid nodularity. They are referred for surgical consultation from Dr. Bhakta. This was discovered incidentally during CT imaging that was performed as follow-up of recent weight loss. He was last seen 02/05/2024 at which time he underwent FNA biopsy of both a left sided thyroid nodule as well as an isthmic thyroid nodule. Biopsy results confirmed a [place] 2 lesion on the left but a [place] 3 lesion at the isthmic position that was further [facility] and returned suspicious. He presents to today's visit with his to discuss the clinical implications of this result and his surgical/treatment options. He denies any interval updates. Below is recapitulated from patient's prior visit for ease of review: Patient is a 78-year-old male who presents for evaluation of thyroid nodularity. They are referred for surgical consultation from Dr. Bhakta. This was discovered incidentally during CT imaging that was performed as follow-up of recent weight loss. Mr. Pacheco shares that he experienced approximately 20 pound weight loss over roughly 1 months time. He confesses that as a general rule he does minimal activity and did not notice his appetite changing drastically. He is pleased to report that his weight during his intake was up to 170 pounds so there appears to be some spontaneous regain. They do not experience difficulty with swallowing. They do not complain of a new cough. They do not appreciate new voice changes. They have a history of occasional snoring. In addition to the weight loss discussed above, there is a history of recent fatigue. Mr. Pacheco details this to say that this seems to have progressed significantly in the last month. He notes that he is simply not sleeping well. He shares that it takes a while to fall asleep and then there are frequent nighttime awakenings due to urination (he estimates a frequency of sometimes up to 6-7 times per night. He does admit to regularly drinking coffee before bedtime but insist that this is decaffeinated. He also confirms EHR record that there is a diagnosis of prostate cancer which urology plans to follow-up with MRI imaging. They do not have a history of heat or cold intolerance. Other symptoms include: Pertinent negatives: No unexplained sweating and no heart racing. They do have a family history of thyroid disorders and share about a sister with thyroid problems as well as her 2 daughters (further details of this diagnosis are uncertain). Previous work-up has included thyroid ultrasound. This study was performed on 01/09/2024 and showed a right thyroid lobe measuring 6.1 x 1.7 x 2.5 cm. Within this lobe radiology identified a nodule measuring 1.1 x 0.8 x 0.8 cm rated a TI- RADS 2 lesion in the mid part of the lobe. The left thyroid lobe measured 7.0 x 3.0 x 3.5 cm. Within this lobe radiology identified a nodule measuring 3.8 x 2.7 x 2.7 cm with a TI-RADS 3 appearance. Lastly radiology noted that the isthmus was generally 5 mm thick, however, a third nodule was described measuring 1.2 x 1.3 x 0.5 cm and was rated TI-RADS 4. An FNA has not been performed. Other tests include: TSH: 0.51 (01/23/2024?but is low at 0.01 in July of this year), anti-TPO antibodies: Less than (August 31, 2023) ROS General General: Yes weight change and fatigue; No appetite, colon cancer, breast cancer or weakness HEENT HEENT: No difficulty swallowing, eye injury, eye surgery, swollen glands or hoarseness Endo Endocrine: Yes diabetes mellitus; No thyroid disease, thyroid cancer, Hair loss, heat intolerance or cold intolerance Skin Skin: No rash or changing moles Breast Breast: No left breast lump, right breast lump, nipple discharge, breast pain, abnormal mammogram, abnormal US or breast enlargement Musc Musculoskeletal: Yes arthritis; No back problems, rheumatoid arthritis, gout or joint pain Cardio Cardiovascular: No murmur, pacemaker, heart disease, atrial fibrillation, high blood pressure, heart attack, heart stent, palpitations, shortness of breat with exertion or chest pain Psych Psychiatric: No depression, anxiety or hearing voices Resp Respiratory: No shortness of breath, No sleep apnea, No cough, No COPD, No asthma, No emphysema and No wheezing Gastro Gastrointestinal: No abdominal pain, No nausea or vomiting, No diarrhea, No constipation, No blood in stool, No acid reflux, No hemorrhoids, No ulcers, No gallbladder problem and Yes black,tarry stools Guy Hematologic: No blood thinners, No blood disorders, No bleeding, No anemia and No blood clots Neuro Neurologic: No system reviewed and no additional complaints, except as documented, No as per HPI, No abnormal gait, No abnormal hearing, No abnormal movements, No abnormal speech, No behavioral changes, No burning sensations, No confusion, No convulsions, No disequilibrium, No dizziness, No localized weakness, No frequent falls, No headache(s), No lack of coordination, No loss of vision, No memory loss, No numbness, No other visual disturbances, No radicular pain, No restless legs, No sensory deficit, No syncope, No tingling, No tremor(s), No weakness and No other Exam Const General: cooperative and anxious Orientation: alert, awake and oriented x3 Neck Other: Minor tracheal deviation to the right with enlarged left thyroid lobe. No lymphadenopathy. Nontender. Assessment and Plan Assessment and Plan (1) Multiple thyroid nodules: Status: Acute Comment: Patient is an 78-year-old male, with history of recent signs of hyperthyroidism, who presents for evaluation of newly?diagnosed thyroid nodularity that was an incidental finding on workup for unexplained weight loss. Despite goiter proportions patient appears to deny any compressive symptomology. I discussed the prevalence of thyroid nodules and outlined the results of Mr. Pacheco's ultrasound. I also discussed the triage of thyroid nodules via the TI-RADS system and extended the recommendation by radiology to pursue biopsy of his left-sided TI-RADS 3 nodule. Additionally, I recommended pursuing biopsy of his isthmic nodule given its higher degree of suspicion, superficial location, and impact on surgical decision making (isthmusectomy would be included with any intent to perform lobectomy). Patient was receptive and the procedure was undertaken uncomplicated fashion during today's visit. Complete details are given in the procedures section of this note. Postprocedural wound care instructions were conveyed. Update 03/19/2024: Lengthy conversation held with patient and his regarding recommended surgical course with left thyroid lobectomy and isthmusectomy. Discussed biopsy results and the rationale for recommending this course. Additionally, discussed the procedure?specific risks of recurrent laryngeal nerve injury and hypoparathyroidism and the measures taken to mitigate these risks intraoperatively. Hand drawings were made to illustrate relevant points. All questions were taken from patient and his . I attempted to carefully outlined the pros and cons of thyroid lobectomy versus total thyroidectomy. With this discussion I suggested that all comers to undergo thyroid lobectomy can expect no need for thyroid hormone supplementation about 60% of the time and suggested that this may be even slightly more likely Mr. Pacheco's particular case given that he has a history of hyperthyroidism. In the end, Mr. Pacheco remains undecided and asked what the consequence of not proceeding with intervention may be. I frankly suggested that if this represents cancer then it would facilitate spread which could lead to more notable symptoms and a more difficult treatment course if opted for in a delayed fashion. and Mrs. Pacheco expressed appreciation for the information and yet wished to discuss this information further with her children. A photocopy was obtained of today's notes to facilitate this discussion. They pledged to return their decision in the next couple of days. Plan: ? Recommended left thyroid lobectomy with isthmusectomy using intraoperative nerve monitoring ? Follow-up patient decision after consultation with family (second opinion offered but patient and his spouse do not appear inclined to pursue this offer) (2) Hyperthyroidism: Status: Acute Comment: With patient's history of recent hyperthyroidism (as evidenced by TSH show 0.01 in July of this year) and reports of increased fatigue/weight loss I believe it is prudent to see that he does not have evidence of a toxic adenoma within the thyroid. Therefore I have recommended that we consider a thyroid uptake scan. After describing my rationale, and Mrs. Pacheco are in agreement. Plan: Radioactive iodine uptake scan to assess for any hot nodularity I have examined the patient and the H&P has been reviewed. There are no clinical changes since date of exam. Thyroid uptake scan was completed and showed evidence only of thyroiditis but no toxic nodularity. Procedure and postp rocedure expectations were reviewed with patient and his family present in the room (this includes patient's and patient's son and [id number]). Specifically I reviewed postprocedure recovery and instructions for wound care. All questions were answered to their satisfaction. Will now proceed to the operating room for a planned left thyroid lobectomy with isthmusectomy using intraoperative neuromonitoring.
[2024-04-30] MEDS: Bupivacaine 0.25% 30 ML Vial (14:00)
--- NOTE | 2024-04-30 14:05 | PCM.OPRPT ---
Operative Report (Standard) Operative Information Date of Procedure: 04/30/24 Pre-Operative Diagnosis: 1. Suspicious isthmic nodule with multinodular goiter 2. Hypothyroidism Post-Operative Diagnosis: Same Surgery/Procedure Performed: Left thyroid lobectomy with isthmusectomy and intraoperative nerve monitoring personal investment adviser: Yes Crown Attacher: Tonya Hook Tasks completed by assistant federal public defender: Opening & closing, Hemostasis: Electrocautery and Retracting Additional cataloging assistant?: No Type of Anesthesia: General/Supplemental RN Documented Start/Stop Times: Operation Date: 04/30/24 11:00 Case Time Into Pre-Op 04/30/24 09:40 Out of Pre-Op 04/30/24 11:00 Anesthesia Start 04/30/24 11:17 Into Room 04/30/24 11:17 Procedure Start 04/30/24 12:02 Procedure End 04/30/24 14:04 Anesthesia End 04/30/24 14:13 Out of Room 04/30/24 14:13 Into Recovery 04/30/24 14:17 Out of Recovery 04/30/24 16:19 Procedure Start Time: 12:02 Procedure Stop Time: 14:04 Select all DRAINS/GRAFTS/IMPLANTS that apply: None Estimated Blood Loss: 15 Specimen collected: Yes Description of specimen(s) removed: Left thyroid lobe and isthmus Description of surgery: After appropriate identification in the preoperative holding area, the patient was brought to the operating room where he was positioned supine on the operating room table. Induction of general endotracheal anesthetic was begun and a NIMS tube was placed under glidescope view to confirm coaptation with the vocal cords anteriorly. Tube was then secured and the patient was positioned with a shoulder roll so that his head was in extension but supported. The Nims electrodes were placed and connected to the monitor. We had appropriate resistance showing on the monitor and tapping at the level of the cricoid produce a graphical representation of the impulse on the monitor. Patient's neck was then prepped and draped in usual sterile fashion and a formal timeout was conducted from those present. The lowest skin fold to the sternal notch was selected for incision site (this resided approximately 2 fingerbreadths cephalad to the notch). An incision was extended for 3 cm on either side of midline. Electrocautery was used to deepen this incision through the level of the platysma. Subplatysmal flaps were raised with the use of electrocautery and blunt dissection. The strap muscles were then divided along the median raphe bringing us down to the level of the thyroid. Capsular attachments from the strap muscles to the thyroid were divided with the use of LigaSure or bluntly swept away. Retractors were placed but I was unable to initially visualize the polar vessels due to surrounding from the sternohyoid muscle attachments and then simply because of the superior extent of the gland. Downward traction was applied with Machelle graspers and ultimately I was able to visualize the polar vessels. During this retraction it was evident that the middle thyroid vein restricted the gland mobility so this was divided with the application of LigaSure. The vessels of the superior pole were then sequentially ligated with the use of the LigaSure device. As we moved towards the thyroid gland away from the pole vessels, I was careful to identify the superior parathyroid gland and preserve its vascular pedicle. We then moved inferiorly and divided those polar vessels with LigaSure. The inferior parathyroid gland was grossly visualized and preserved with this division. With the poles freed the thyroid was mobilized medially. I bluntly the remaining strap muscle fibers from the thyroid capsule and using blunt dissection parallel to the presumed course of the recurrent laryngeal nerve, exposed the tracheoesophageal groove. I also opened the carotid sheath and identified the left vagus nerve. The nerve was then stimulated with our Nims probe for a strongly positive signal. With this signal intact, I relieved several additional superior attachments and was able to mobilize the gland anteriorly out of the surgical bed to better visualize its posterior aspect. After gently spreading bluntly parallel to the presumed orientation of the nerve I was able to visualize the left recurrent laryngeal nerve clearly?bifurcating just prior to its entry into the cricothyroid membrane. Application with my prass probe elicited a positive signal. The gland was tediously mobilized anteriorly away from this nerve with division of tracheal attachments using LigaSure energy. Once I had assured clearance from the nerve, the remaining thyroid tissue was removed from the anterior surface of the trachea with electrocautery to include the entirety of the thyroid isthmus. In the cephalad portion of the incision, I encountered what appeared to be a pyramidal lobe and took this with the specimen. After confirming the presence of our target nodule within the thyroid isthmus, the specimen was divided with the LigaSure device for hemostasis and passed off the field for permanent section. Pressure was applied to the surgical cavity and there was some slight oozing along the anterior surface of the trachea well away from the recurrent laryngeal nerve where selective electrocautery was applied. Closer to the nerve there was some additional oozing and Surgicel hemostatic agent was placed while pressure was applied. Once this pressure was relieved, the surgical cavity was again inspected and we found hemostasis to be intact. We also confirmed the presence of both the superior and inferior parathyroid gland as well as a well-functioning recurrent laryngeal nerve. Satisfied with this result, the strap muscles were closed with a running 3-0 Vicryl stitch leaving a small gap at the inferior aspect of the suture line. The platysmal flaps were closed with interrupted 3-0 Vicryl. Some additional local anesthetic was infiltrated throughout the dermis and the skin was closed in a subcuticular fashion using 4-0 Monocryl. Steri-Strips were applied. OpSite's were used as a dressing. The patient was then awakened from anesthetic without event and was taken to PACU for ongoing recovery. Surgical Findings: ? Grossly visible left superior and inferior parathyroid glands ? 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
--- NOTE | 2024-04-30 14:19 | PCM.POST.ANE ---
Anesthesia: Postop Eval I Current Vital Signs Temperature: 96.9 F Pulse Rate: 70 Blood Pressure: 125/73 Respiratory Rate: 16 Pulse Ox: 100 Oxygen Delivery Method: Room Air Assessment Airway patent: Yes Spontaneous unlabored respirations: Yes Mental status: Awake and Calm nausea: No Vomiting: No Anesthesia Complication: No Fluid Hydration Crystalloid volume administer (ml): 1,500 Total IV fluid infused: 1,500 Progress Note Anesthesia document: Postop Eval 1 completed: Yes
[2024-04-30] MEDS: Ibuprofen 200 MG Tablet 400 MG PO ×2 (18:09→23:58)
--- NOTE | 2024-04-30 23:17 | PCM.POSTANE2 ---
Anesthesia Postop Eval I Sum Postop Eval Completion status Anesthesia document: Postop Eval 1 completed: Yes Anesthesia Postop Eval I Summary Anesthesia Postop Eval I Summary: Anesthesia Postop Eval I: Assessment Summary Airway patent Yes 04/30/24 14:21 Spontaneous unlabored Yes 04/30/24 14:21 respirations Mental status Awake,Calm 04/30/24 14:21 nausea No 04/30/24 14:21 Vomiting No 04/30/24 14:21 Anesthesia Postop Eval I: Fluid Summary Crystalloid volume administer 1,500 04/30/24 14:21 (ml) Colloids volume administered ( ml) Blood Product volume administered (ml) Total IV fluid infused 1,500 04/30/24 14:21 Anesthesia Postop Eval I: Summary Notes Anesthesia Complication No 04/30/24 14:21 Anesthesia Complication Comment: Post-operative progress note Anesthesia: Postop Eval II Evaluation Mental status: Awake and Calm Pain Level: 1 nausea: No Vomiting: No Complications Anesthesia Complication: No
[2024-05-01 00:04] VITALS: BP 138/62; PULSE 67; RESP 16; TEMP 36.7; O2SAT 96
[2024-05-01] MEDS: Tamsulosin HCl 0.4 MG Capsule PO (00:39)
[2024-05-01 05:13] VITALS: BP 107/60; PULSE 60; RESP 14; TEMP 37.2; O2SAT 98
[2024-05-01] MEDS: Ibuprofen 200 MG Tablet 400 MG PO ×2 (05:17→12:14)
--- NOTE | 2024-05-01 07:19 | PCM.PN.SRG ---
Subjective Subjective Patient evaluated resting comfortably in bed. Patient denies any incisional pain. He notes a scratchy throat, however not too bothersome. Patient is tolerating clear liquid diet well. Patient denies any nausea over night. He denies any numbness or tingling of hands/fingers or perioral. His pain has been well controlled with Tylenol and Ibuprofen. Objective Data Objective Data Vital Signs: Vital Signs Temp Pulse Resp BP Pulse Ox O2 Del Method 98.9 F 60 14 107/60 98 Room Air 05/01/24 05:13 05/01/24 05:13 05/01/24 05:13 05/01/24 05:13 05/01/24 05:13 05/01/24 05:13 Oxygen Delivery Method Room Air Weight: 174 lb 2.643 oz Body Mass Index (BMI) 25.0 Intake & Output: Intake and Output for Last 24 Hours 04/29/24 04/30/24 05/01/24 23:59 23:59 23:59 Intake Total 3219 / 3769 1200 / 1200 Output Total 500 / 500 Balance 3219 / 3769 700 / 700 Lab / Micro Data 04/22/24 12:50 04/22/24 12:50 Physical Exam Neck Neck Narrative: Anterior cervical region- incision c/d/i. No erythema or infection noted. Very minimal amount of swelling noted. Assessment & Plan Assessment/Plan (1) Hyperthyroidism: PLAN: I am following this patient in conjunction with Dr. Francois Labs pending Bladder scan again mid morning unless patient is able to urinate on his own Continue to apply ice over top of the incision Increase diet to regular Probable discharge later this morning Charges/Coding Visit Charges Inpatient E&M: 85795 Subs Hosp L1 (post-op; no charge)
--- NOTE | 2024-05-01 07:29 | DCINST_ITS ---
Discharge Instructions Diet Discharge Diet: Light diet - advance as tolerated DC O2, CPAP, BIPAP needs Home O2 Discharge instructions: No Dressing / Incision Discharge Activity: May Not Drive (3-5 days from surgery) and May Not Shower (48 hours after surgery) May shower in (days): 1 Lifting Restrictions: No lifting greater than 10 pounds x 2 weeks Dressing / Incision Call your doctor if your incision/area has: Continuous Slow Oozing, Sudden Increased Bleeding, Increased Pain/ Swelling, Increased Redness, Foul Smelling Discharge and Swelling at the incision site Call your doctor if you observe: Fever of 101 or Higher Suture Line Care: Avoid Pulling/Pushing and Avoid Pinching/Bending Remove Dressing in: 2 days Cleanse incision/area with: Do not get Incision Wet (for 2 days after surgery) Follow Up Care Please Follow Up With: Karthikeyan Francois MD When: Please contact our office at [phone], option #2 to schedule a 10-14 day follow-up with Dr. Francois Test Results: Test results from this visit will be discussed in further detail at your follow- up appointment, if applicable. Discharge Plan Admission Admit Date/Time: 04/30/24 15:13 Primary Reason for Your Visit: s/p left thyroid lobectomy with isthmusectomy Attending Provider: Karthikeyan Francois Primary Care Provider: Aashish Bhakta Chi Instructions Additional Instructions / Restrictions: Thyroid Diet ? Start light with soups and soft bland foods. You may advance diet as tolerated. Activity ? You may drive in 3-5 days ? I encourage walking. You may go up steps, one at a time. ? Do not swim or use hot tubs for 2 weeks. Lifting ? You may lift up to 10 pounds for the first 2 weeks. Dressings/Incision ? You may shower OVER surgical glue and/or steri-strips in place in 48 hours from surgery ? Do NOT tub bathe for 1 week ? If you have clothing that rubs on your incision, you should protect it with gauze and tape, or an oversized band-aid for the first 3 to 5 days. ? You may remove steri-strips after 1 week. We recommend getting them soaking wet for easier removal. Medications ? Anesthesia used during surgery and pain medications may cause constipation. I recommend initiating on the day of surgery a fiber supplement like, Metamucil, Citrucel, FiberCon, Benefiber, or a generic form of these medications. 1 heaping tablespoon in water daily. You may continue to utilize any bowel regimen or oral laxatives that you routinely take. ? As long as you are not intolerant to Tylenol, acetaminophen, ibuprofen, Motrin, Advil, Aleve, or similar medications, I would recommend transitioning to these ajoz-wyy-iwyzjod medicines as soon as possible instead of continued use of narcotic pain medication. Follow up ? You should call [facility] soon after surgery, at [phone] option 2 to make a follow up appointment for 10-14 days after your surgery. Recommend gentle neck range of motion exercises. Turn head side to side and up and down multiple times throughout the day. Discharge Orders/Prescriptions Prescriptions: New acetaminophen 500 mg Tablet 500 mg PO Q6H PRN PRN (Reason: Pain Score 1-10) Qty: 0 0RF ibuprofen 200 mg Tablet 400 mg PO Q6 Qty: 0 0RF Continued multivitamin [Daily Multi-Vitamin] Tablet 1 tab PO DAILY rosuvastatin 10 mg tablet 10 mg PO QHS tamsulosin 0.4 MG capsule 0.4 mg PO QHS Referrals / Follow Up: Karthikeyan Francois MD [Med Staff - Active Staff] - 05/15/24 (Please follow-up in 10- 14 days) Aashish Bhakta Chi, MD [Primary Care Provider] - Disposition Disposition (needs filled in before D/C Order can be placed): Home, Self Care
[2024-05-01 07:38] LABS: Calcium,Total 8.5 mg/dL (8.5-10.1)
[2024-05-01 08:05] VITALS: BP 109/64; PULSE 56; RESP 18; TEMP 37.1; O2SAT 98
[2024-05-01 08:09] VITALS: PULSE 60
[2024-05-01 15:35] VITALS: BP 138/78; PULSE 64; RESP 18; TEMP 36.9; O2SAT 97
== END 2024-05-01 15:47 | disposition home or self-care (01) ==
LOC: SDC 15:58 → MS3 15:58
PROVIDERS: Anesthesiology; Admitting Provider Surgery; PCP Family Medicine Geriatric Medicine; Referring Provider Surgery; Visit Provider Surgery
PROC: (CPT 60220; principal; 2024-04-30 10:45)
DX: E05.20 Thyrotoxicosis with toxic multinodular goiter without thyrotoxic crisis or storm (principal); C61 Malignant neoplasm of prostate; R35.0 Frequency of micturition; R63.4 Abnormal weight loss; I12.9 Hypertensive chronic kidney disease with stage 1 through stage 4 chronic kidney disease, or unspecified chronic kidney disease; N18.1 Chronic kidney disease, stage 1; Z79.899 Other long term (current) drug therapy; Z86.39 Personal history of other endocrine, nutritional and metabolic disease
CPT/HCPCS: 60220; 36415; 80048; 82310; 83036; 83970; 85027; 88307; 93005; 99221; A4648; G0378; J2405

== ENCOUNTER → 2024-05-13 | Outpatient (CLI) | payer MEDICARE, OTHER, SELFPAY ==
[2024-05-13 15:14] LABS: T3 Total - Triiodothyronine 1.04 ng/mL (0.6-1.81)
[2024-05-13 15:20] LABS: Free T3 2.4 pg/mL (2.18-3.98); T4 Free Direct 0.91 ng/dL (0.76-1.46)
== END | disposition home or self-care (01) ==
LOC: POLAB3 14:16
PROVIDERS: PCP Family Medicine Geriatric Medicine; Visit Provider Family Medicine Geriatric Medicine
DX: E04.1 Nontoxic single thyroid nodule (principal); E04.2 Nontoxic multinodular goiter
CPT/HCPCS: 36415; 84439; 84443; 84480; 84481

== ENCOUNTER 2024-06-20 10:56 | Outpatient (CLI) | payer MEDICARE, OTHER, SELFPAY ==
[2024-06-20 11:17] VITALS: BP 132/61; PULSE 58; RESP 16; TEMP 36; O2SAT 99; BMI 24.8
[2024-06-20] MEDS: 0.9% Normal Saline (1000mL) 1,000 ML 999 ML IV ×2 (11:28→12:28)
[2024-06-20] MEDS: 0.9% NaCl Peripheral Flush Adult/Peds IV (11:28)
[2024-06-20 13:47] VITALS: BP 128/65; PULSE 51; RESP 16; TEMP 35.8; O2SAT 100
== END 2024-06-20 23:59 | disposition home or self-care (01) ==
LOC: MEDOUTP 10:57
PROVIDERS: PCP Family Medicine Geriatric Medicine; Referring Provider Family Medicine Geriatric Medicine; Visit Provider Family Medicine Geriatric Medicine
DX: E86.0 Dehydration (principal)
CPT/HCPCS: 96360; 96361; A4216

== ENCOUNTER → 2024-07-14 | Outpatient (CLI) | payer MEDICARE, OTHER, SELFPAY ==
[2024-07-14 11:24] LABS: AST(SGOT) 21 U/L (<=37); Alanine Aminotransfer ALT/SGPT 16 U/L (<=46); Alkaline Phosphatase 63 U/L (40-129); Bilirubin, Direct 0.24 mg/dL (0.00-0.30); Cholesterol 151 mg/dL (<=200); Globulin 2.9 g/dL (2.2-4.2); High Density Lipoprotein 52 mg/dL; Low Density Lipoprotein Calc. 89 mg/dL; Protein, Total 6.9 g/dL (5.9-8.4); Total Bilirubin 0.47 mg/dL (0.00-1.30); Triglycerides 52 mg/dL; Very Low Density Lipoprotein 10 mg/dL (5-40)
== END | disposition home or self-care (01) ==
PROVIDERS: PCP Family Medicine Geriatric Medicine; Referring Provider Physician Assistant Medical; Visit Provider Physician Assistant Medical
DX: E78.00 Pure hypercholesterolemia, unspecified (principal)
CPT/HCPCS: 36415; 80061; 80076

== ENCOUNTER → 2024-07-30 | Outpatient (CLI) | payer MEDICARE, OTHER, SELFPAY ==
[2024-07-30 11:25] LABS: Absolute Lymphocyte Count 1.54 X10^3/uL (0.83-4.51); Absolute Neutrophil Count 1.3 X10^3/uL (2.0-7.7); Basophil# 0.03 X10^3/uL; Basophil% 0.8 % (0-1); Eosinophils% 2.8 % (0-5); Hematocrit 44.3 % (40-54); Hemoglobin 14.5 g/dL (13.0-16.5); Lymphocyte # 1.54 X10^3/ul (0.83-4.51); Lymphocyte % 43.3 % (19-41); Mean Corp Hgb Conc 32.7 g/dL (32-36); Mean Corpuscular Hgb 32.2 pg (27.0-32.0); Mean Corpuscular Volume 98.2 fL (80-94); Mean Platelet Vol. 9.7 fl (6.2-12.0); Monocyte# 0.55 X10^3/uL; Monocyte% 15.4 % (0-10); NRBC Flagged by Analyzer 0 % (0-5); Neutrophil # 1.34 X10^3/uL (2.7-7.7); Neutrophil % 37.7 % (47-70); Platelet Count 149 K/mm3 (150-450); RBC Distribution Width SD 50.9 fl (35.1-43.9); Red Blood Count 4.51 M/mm3 (4.6-6.2); White Blood Count 3.6 K/mm3 (4.4-11.0)
[2024-07-30 12:33] LABS: ALB/GLOB Ratio 1.3 RATIO (0.9-2.4); AST(SGOT) 24 U/L (<=37); Alanine Aminotransfer ALT/SGPT 15 U/L (<=46); Albumin, Serum 4.2 g/dL (3.4-4.8); Alkaline Phosphatase 71 U/L (40-129); Anion Gap 9 (5-15); BUN 15 mg/dL (4-19); BUN/Creat Ratio 10.3 RATIO (10-20); Calcium,Total 9.6 mg/dL (7.6-11.0); Carbon Dioxide 25.5 mmol/L (21.0-32.0); Chloride 103 mmol/L (98-108); Creatinine, Serum 1.45 mg/dL (0.70-1.20); EST Glomerular Filtration Rate 48 (>60); Globulin 3.3 g/dL (2.2-4.2); Glucose 86 mg/dL (70-99); Potassium 4.7 mmol/L (3.3-5.1); Protein, Total 7.5 g/dL (5.9-8.4); Sodium Level 138 mmol/L (133-145); Total Bilirubin 0.51 mg/dL (0.00-1.30)
[2024-07-30 12:35] LABS: Vitamin D,25 Hydroxy 31.2 ng/mL (30-100)
== END | disposition home or self-care (01) ==
LOC: POLAB3 11:15
PROVIDERS: PCP Family Medicine Geriatric Medicine; Visit Provider Family Medicine Geriatric Medicine
DX: I10 Essential (primary) hypertension (principal); E55.9 Vitamin D deficiency, unspecified
CPT/HCPCS: 36415; 80053; 82306; 84443; 85025

== ENCOUNTER → 2024-09-29 | Outpatient (CLI) | payer MEDICARE, OTHER, SELFPAY ==
[2024-09-29 09:29] LABS: PSA,Total- Diagnostic 6.62 ng/mL (0.00-4.00)
== END | disposition home or self-care (01) ==
LOC: LAB 08:31
PROVIDERS: PCP Family Medicine Geriatric Medicine; Referring Provider Urology; Visit Provider Urology
DX: C61 Malignant neoplasm of prostate (principal)
CPT/HCPCS: 36415; 84153

== ENCOUNTER → 2025-01-28 | Outpatient (CLI) | payer MEDICARE, OTHER, SELFPAY ==
[2025-01-28 11:46] LABS: Hematocrit 42.9 % (40-54); Hemoglobin 14.4 g/dL (13.0-16.5); Immature Granulocytes Count 0.000 X10^3/uL (0.0-0.0); Mean Corp Hgb Conc 33.6 g/dL (32-36); Mean Corpuscular Volume 96.4 fL (80-94); Mean Platelet Vol. 9.6 fl (6.2-12.0); NRBC Flagged by Analyzer 0 % (0-5); Platelet Count 153 K/mm3 (150-450); RBC Distribution Width CV 13.8 % (11.6-14.6); RBC Distribution Width SD 49.2 fl (35.1-43.9); Red Blood Count 4.45 M/mm3 (4.6-6.2); White Blood Count 3.0 K/mm3 (4.4-11.0)
[2025-01-28 12:53] LABS: Vitamin D,25 Hydroxy 28.6 ng/mL (30-100)
[2025-01-28 13:04] LABS: AST(SGOT) 22 U/L (<=37); Alanine Aminotransfer ALT/SGPT 20 U/L (<=46); Albumin, Serum 4.2 g/dL (3.4-4.8); Alkaline Phosphatase 60 U/L (40-129); Anion Gap 9 (5-15); BUN 12 mg/dL (4-19); BUN/Creat Ratio 9.6 RATIO (10-20); Calcium,Total 9.1 mg/dL (7.6-11.0); Carbon Dioxide 22.9 mmol/L (21.0-32.0); Chloride 105 mmol/L (98-108); Globulin 2.8 g/dL (2.2-4.2); Glucose 91 mg/dL (70-99); Potassium 4.6 mmol/L (3.3-5.1)
[2025-01-28 13:24] LABS: Bilirubin, Direct 0.22 mg/dL (0.00-0.30)
[2025-01-28 19:25] LABS: Xtra Tube Kwok EXTRA TUBE
== END | disposition home or self-care (01) ==
LOC: POLAB3 11:25
PROVIDERS: Physician Assistant Medical; PCP Family Medicine Geriatric Medicine; Visit Provider Family Medicine Geriatric Medicine
DX: I10 Essential (primary) hypertension (principal); E55.9 Vitamin D deficiency, unspecified
CPT/HCPCS: 36415; 80053; 82248; 82306; 84443; 85025